=== PATIENT | male | born 1960 | race Caucasian/White ===

== ENCOUNTER → 2016-07-24 | Outpatient (CLI) | payer OTHER ==
[~2016-07-24] MED LIST: ACET50TAOT PO; ALBU17IN INH; ASPI81TA85 PO; ATOR40TA PO; BUPIVACAINE HCL 0.25% 10 ML VIAL As Ordered ONE; BUPIVACAINE HCL 0.25% 30 ML VIAL As Ordered ONE; CLOP75TA2 PO; EFFI10TA4 PO; GABA300C3 PO; IBUP800T23 PO; ISOS30TAB PO; ISOS40TASA PO; LIDO1OIN2 TOP; LISI-542 PO; LISI10TA4 PO; LORA10TA2 PO; NAPR500T PO; NITR0.4D6 SL; NITR4PA TD; OMEP20CA3 PO; RANE1000 PO; RANO5TAB PO; SYMB16INH INH; TOPA50TA7 PO; TOPR25TA PO; TRAM50TA2 PO; TRIAMCINOLONE ACETONIDE SUSP 40 MG/ML VIAL (J3301) As Ordered ONE; [UNRECOGNIZED DRUG - CODE] PO
--- NOTE | 2016-07-30 00:34 | ECWPNPC ---
PATIENT NAME: ROME DODSON : 1960 GENDER: MALE VISIT DATE: 07/24/2016 DISCHARGE DATE: 07/24/16 1436 VISIT LOCKED DATE TIME: PHYSICIAN: ROBERT QUILES RESOURCE: ROBERT QUILES REASON FOR APPOINTMENT 1. TRIGGER POINT INJECTION HISTORY OF PRESENT ILLNESS HISTORY OF PRESENT ILLNESS: PAIN THE PATIENT DESCRIBES THE PAIN... FALL RISK SCREENING: SCREENING :NO FALLS IN THE PAST YEAR CURRENT MEDICATIONS TAKING ASPIRIN ADULT LOW STRENGTH 81 MG TABLETS 1 TABLET ORALLY ONCE A DAY, NOTES: 07/24/16 1000 TAKING ATORVASTATIN CALCIUM 40 MG TABLET 1 TABLET ORALLY QHS, NOTES: 07.24.16 1000 TAKING SYMBICORT 160-4.5 MCG/ACT AEROSOL 2 PUFFS INHALATION TWICE A DAY, NOTES: 07/24/16 1000 TAKING GABAPENTIN 800 MG TABLET 1 TABLET ORALLY TID, NOTES: 07/24/16 1000 TAKING ISOSORBIDE DINITRATE 60 MG TABLET 1 TABLET ORALLY DAILY, NOTES: 07/24/16 1000 TAKING LISINOPRIL 10 MG TABLET 1 TABLET ORALLY ONCE A DAY, NOTES: 07/24/16 1000 TAKING LORATADINE 10 MG TABLET 1 TABLET ORALLY ONCE A DAY, NOTES: 07/24/16 1000 TAKING METOPROLOL SUCCINATE ER 25 MG TABLET EXTENDED RELEASE 24 HOUR 1 TABLET ORALLY ONCE A DAY, NOTES: 07/24/16 1000 TAKING NITROGLYCERIN 0.4 MG PATCH 24 HOUR 1 PATCH TO SKIN REMOVE AFTER 12 HOURS DAILY, NOTES: 07/24/16 1000 TAKING EFFIENT 10 MG TABLET ORALLY DAILY, NOTES: 07/24/16 1000 TAKING RANEXA 1000 MG TABLET EXTENDED RELEASE 12 HOUR 1 TABLET ORALLY TWICE A DAY, NOTES: 07/24/16 1000 TAKING OMEPRAZOLE 20 MG CAPSULE DELAYED RELEASE 1 CAPSULE ORALLY QD, NOTES: 07/24/16 1000 TAKING TOPIRAMATE 50 MG TABLET 1 TABLET ORALLY TWICE A DAY, NOTES: 07/24/16 1000 TAKING VENTOLIN HFA 200 MG AEROSOL SOLUTION 2 PUFFS NEEDED INHALATION EVERY 4 HRS, NOTES: 07/24/16 1000 TAKING METHOCARBAMOL 750 MG TABLET 1 TABLET ORALLY BID, NOTES: 07/24/16 1000 TAKING NORCO 5-325 MG TABLET 1 TABLET ORALLY 8- 12 HRS PRN PAIN MDD=3, NOTES: 07/24/16 1000 MEDICATION LIST REVIEWED AND RECONCILED WITH THE PATIENT PAST MEDICAL HISTORY HYPERTENSION CARDIOVASCULAR DISEASE HI X2 ALLERGIES IV DYE: ITCHING AND SWEATING: ALLERGY SOCIAL HISTORY GENERAL: TOBACCO USE ARE YOU A:NONSMOKER 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 NEW PATIENT PAIN DIARY TODAY'S VISITNOTES FROM 0-10, WHAT LEVEL IS YOUR PAIN TODAY?0 PAIN CLINIC PFS, CLERGY, PUBLIC HEALTH REFERRALS PFS REFERRAL NEEDED?NO CLERGY REFERRAL NEEDED?NO PUBLIC HEALTH REFERRAL NEEDED?NO WAS THE PROVIDER NOTIFIED OF ANY PERTINENT INFO?NO PFS REFERRAL NEEDED?NO CLERGY REFERRAL NEEDED?NO PUBLIC HEALTH REFERRAL NEEDED?NO WAS THE PROVIDER NOTIFIED OF ANY PERTINENT INFO?NO REVIEW OF SYSTEMS CONSTITUTIONAL: ANY CHANGE IN YOUR MEDICAL CONDITION? NO . CHILLS NO . FEVER NO . INFECTION: DO YOU HAVE NEW INFECTIONS? NO . DO YOU HAVE HISTORY OF MRSA? NO . MUSCULOSKELETAL: ANY NEW PATTERNS OF PAIN OR NUMBNESS? NO . GASTROENTEROLOGY: ANY NEW CHANGE IN BOWEL CONTROL? NO . GENITOURINARY: ANY NEW CHANGE IN BLADDER CONTROL? NO . IS THERE A CHANCE YOU COULD BE ? NO . HEMATOLOGY/LYMPH: DO YOU TAKE ANY BLOOD THINNERS? (FOR EXAMPLE- COUMADIN, PLAVIX, AGGRENOX, PLATEL, PRADAXA, OR XARELTO) YES EFFIENT . WHEN WAS YOUR LAST DOSE? DATE: TIME: . NEUROLOGY: HAVE YOU FALLEN IN THE PAST 6 MONTHS? YES SLIPPED AND FELL ON ICE TEN DAYS AGO, PT DENIES INJURIES, ALTHOUGH HE STATES HE STRUCK HIS HEAD AND &QUOT;WENT BLACK&QUOT; FOR A COUPLE OF SECONDS. WENT TO ED AND STATES NOTHING BROKEN . ANY NEW EXTREMITY NUMBNESS OR WEAKNESS? NO . CARDIOLOGY: DO YOU HAVE A PACEMAKER OR DEFIBRILLATOR? YES PACEMAKER/DEFIBRILLATOR . RESPIRATORY: HAVE YOU BEEN SICK IN THE PAST WEEK? NO . FEVER NO . FLU LIKE SYMPTOMS? NO . COUGH NO . INTEGUMENTARY: DO YOU HAVE ANY RASHES OR OPEN SORES? NO . ALLERGIC/IMMUNO: ARE YOU ALLERGIC TO SHELLFISH OR IV DYE? YES . ANY NEW ALLERGIES? NO . PSYCHIATRIC: DO YOU HAVE THOUGHTS OF HURTING YOURSELF OR SOMEONE ELSE? NO . ARE YOU ABUSED, NEGLECTED, OR IN AN UNSAFE ENVIRONMENT? NO . ENDOCRINOLOGY: ARE YOU DIABETIC? NO . OTHER: DO YOU NEED ANY PRESCRIPTIONS? YES NORCO . IF YES, PLEASE LIST: ____ . ANY NEW PROBLEMS WITH YOUR MEDICATIONS? NO . WHEN DID YOU LAST EAT? ____07/23/16 2400 . WHEN DID YOU LAST DRINK? ____07/24/16 0800 . WHAT DID YOU LAST DRINK? ____BLACK COFFEE . NAME OF PERSON DRIVING YOU HOME? ____MR NAIL[employer], VOLUNTEER [employer]ACING [employer]ITTER . DO YOU HAVE ANY OTHER QUESTIONS OR CONCERNS NO . REVIEWED BY: PROVIDER: . VITAL SIGNS WT 180 LBS, HT 72 IN, BMI 24.41 INDEX, BP 145/96 MM HG, HR 87 /MIN, RR 16 /MIN, TEMP 96.0 F, OXYGEN SAT % 96, NA INITIALS TL 1306ELEVATED BP, PT STATES HE IS IN A LOT OF PAIN- TL. ASSESSMENTS MYALGIA - M79.1 (PRIMARY) PROCEDURES PN TRIGGER POINT INJECTION WITH STEROIDS PRE PROCEDURE DIAGNOSIS 1. MYALGIA 2. PAIN AT BILATERAL LOW BACK AREA POST PROCEDURE DIAGNOSIS 1. MYALGIA 2. PAIN AT BILATERAL LOW BACK AREA PROCEDURE TRIGGER POINT INJECTION AT BILATERAL LOW BACK AREA SURGEON DR. ROBERT QUILES SALES MANAGEMENT INTERN NONE ANESTHESIA LOCAL PRE PROCEDURE NOTE THE PATIENT HAS A HISTORY OF CHRONIC PAIN AT THE RIGHT AND LEFT LOW BACK AREA. I EVALUATE THE PATIENT AND REVIEWED THE CHART. THERE IS EVIDENCE OF BANDS OF TISSUE WITH RESTRICTION OF MOVEMENT AND PRESENCE OF TRIGGER POINT AT THE AFFECTED AREA. I WENT OVER THE RISKS, ALTERNATIVES, AND BENEFITS ASSOCIATED WITH THIS PROCEDURE. THE PATIENT WOULD LIKE TO PROCEED AND GIVE CONSENT TO PERFORMED THE PROCEDURE. THE PATIENT DENIES UNEXPLAINABLE WEIGHT LOSS, FEVER, CHILLS, OR NEW CHANGES IN URINARY OR BOWEL CONTROL DESCRIPTION OF PROCEDURE THE PATIENT WAS BROUGHT TO THE PROCEDURE ROOM AND PLACED IN THE SITTING POSITION. THE AREA WAS CLEANED WITH ALCOHOL. THE PROCEDURE WAS DONE USING ASEPTIC STERILE TECHNIQUE. I CHECKED LATERALITY AND THE LEVEL WHERE THE PROCEDURE WAS GOING TO BE PERFORMED WITH THE PATIENT AND THE SUPPORTING STAFF AT THE MOMENT OF THE TIME OUT IN THE PROCEDURE ROOM. USING A 25-GAUGE NEEDLE, TRIGGER POINTS WERE INJECTED AT THE RIGHT AND LEFT LOW BACK AREA WITH A TOTAL OF 40 ML OF BUPIVACAINE 0.25% AND KENALOG 40 MG. THERE WAS NO EVIDENCE OF BLOOD, PARESTHESIA OR CEREBROSPINAL FLUID DURING THE PROCEDURE. THE PATIENT WAS SENT TO THE RECOVERY ROOM. THE PATIENT WAS MOVING THE EXTREMITIES AND DOING WELL. THERE WAS NO COMPLICATION DURING THE PROCEDURE POST PROCEDURE NOTE THE PATIENT WILL BE SEEN IN A FOLLOW UP IN THE NEXT FEW WEEKS. INSTRUCTIONS WERE GIVEN, QUESTIONS WERE ANSWERED, AND THE PATIENT EXPRESSED UNDERSTANDING AND AGREES WITH THE PLAN. INSTRUCTIONS WERE GIVEN, QUESTIONS WERE ANSWERED, PATIENT REPORTS UNDERSTANDING AND AGREES WITH THE PLAN. I, JASMINE HAM, DOCUMENTED THE ABOVE INFORMATION ACTING A SCRIBE FOR DR. QUILES. I HAVE REVIEWED THE ABOVE DOCUMENT, WRITTEN BY JASMINE HAM SCRIBE AND I VERIFY THAT IT IS ACCURATE. PROCEDURE CODES 92695 INJ TRIGGER POINT / MUSCL FOLLOW UP 3 WEEKS ELECTRONICALLY SIGNED BY ROBERT QUILES MD ON 07/29/2016 AT 08:21 PM EST DISCLAIMER : THIS IS A VISIT SUMMARY EXTRACTED FROM THE [employer] CHART. IT IS NOT A COPY OF THE [employer] PROGRESS NOTE. LARON
== END ==
LOC: M PAIN 13:00
PROVIDERS: ATTEND Anesthesiology
DX: G89.29 Other chronic pain (principal); M79.1 Myalgia; M54.5 Low back pain; I10 Essential (primary) hypertension; I51.9 Heart disease, unspecified; I25.2 Old myocardial infarction; Z79.01 Long term (current) use of anticoagulants; Z79.82 Long term (current) use of aspirin; Z79.891 Long term (current) use of opiate analgesic; Z79.899 Other long term (current) drug therapy
CPT/HCPCS: 20552; J3301

== ENCOUNTER → 2016-09-14 | Outpatient (CLI) | payer OTHER ==
[~2016-09-14] MED LIST changes: -BUPIVACAINE HCL 0.25% 10 ML VIAL As Ordered ONE; -BUPIVACAINE HCL 0.25% 30 ML VIAL As Ordered ONE; -TRIAMCINOLONE ACETONIDE SUSP 40 MG/ML VIAL (J3301) As Ordered ONE
--- NOTE | 2016-09-14 23:59 | ECWPNPC ---
PATIENT NAME: ROME DODSON : 1960 GENDER: MALE VISIT DATE: 09/14/2016 DISCHARGE DATE: 09/14/16 1503 VISIT LOCKED DATE TIME: PHYSICIAN: MANISHA BRENNER RESOURCE: MANISHA BRENNER REASON FOR APPOINTMENT 1. BACK HISTORY OF PRESENT ILLNESS HISTORY OF PRESENT ILLNESS: PAIN THE PATIENT DESCRIBES THE PAIN... FALL RISK SCREENING: SCREENING :NO FALLS IN THE PAST YEAR TODAY'S VISIT: NOTES: IS S/P TRIGGER POINTS TO LOW BACK ON 07/24/16 WITH GOOD DECREASE OF PAIN TO THE AREA FOR ABOUT 1 MONTH. PAIN HAS NOW RETURNEDNO PAIN RADIATING TO LEGS. STATES HAS BEEN HAVING DIZZY SPELLS WITH VISUAL CHANGES. AND HAS BEEN TO THE ER WITH NO CHANGES.. CURRENT MEDICATIONS TAKING ASPIRIN ADULT LOW STRENGTH 81 MG TABLETS 1 TABLET ORALLY ONCE A DAY, NOTES: 07/24/16 1000 TAKING ATORVASTATIN CALCIUM 40 MG TABLET 1 TABLET ORALLY QHS, NOTES: 07.24.16 1000 TAKING SYMBICORT 160-4.5 MCG/ACT AEROSOL 2 PUFFS INHALATION TWICE A DAY, NOTES: 07/24/16 1000 TAKING GABAPENTIN 800 MG TABLET 1 TABLET ORALLY TID, NOTES: 07/24/16 1000 TAKING ISOSORBIDE DINITRATE 60 MG TABLET 1 TABLET ORALLY DAILY, NOTES: 07/24/16 1000 TAKING LISINOPRIL 10 MG TABLET 1 TABLET ORALLY ONCE A DAY, NOTES: 07/24/16 1000 TAKING LORATADINE 10 MG TABLET 1 TABLET ORALLY ONCE A DAY, NOTES: 07/24/16 1000 TAKING METOPROLOL SUCCINATE ER 25 MG TABLET EXTENDED RELEASE 24 HOUR 1 TABLET ORALLY ONCE A DAY, NOTES: 07/24/16 1000 TAKING NITROGLYCERIN 0.4 MG PATCH 24 HOUR 1 PATCH TO SKIN REMOVE AFTER 12 HOURS DAILY, NOTES: 07/24/16 1000 TAKING EFFIENT 10 MG TABLET ORALLY DAILY, NOTES: 07/24/16 1000 TAKING RANEXA 1000 MG TABLET EXTENDED RELEASE 12 HOUR 1 TABLET ORALLY TWICE A DAY, NOTES: 07/24/16 1000 TAKING OMEPRAZOLE 20 MG CAPSULE DELAYED RELEASE 1 CAPSULE ORALLY QD, NOTES: 07/24/16 1000 TAKING TOPIRAMATE 50 MG TABLET 1 TABLET ORALLY TWICE A DAY, NOTES: 07/24/16 1000 TAKING VENTOLIN HFA 200 MG AEROSOL SOLUTION 2 PUFFS NEEDED INHALATION EVERY 4 HRS, NOTES: 07/24/16 1000 TAKING METHOCARBAMOL 750 MG TABLET 1 TABLET ORALLY BID, NOTES: 07/24/16 1000 TAKING NORCO 5-325 MG TABLET 1 TABLET ORALLY 8- 12 HRS PRN PAIN MDD=3 TAKING IBUPROFEN 600 MG TABLET 1 TABLET ORALLY BID PRN PAIN. TAKE WITH FOOD TAKING PREDNISONE 10 MG (21) TABLET THERAPY PACK ORALLY TAKING TESSALON PERLES 100 MG CAPSULE 1 CAPSULE NEEDED ORALLY THREE TIMES A DAY MEDICATION LIST REVIEWED AND RECONCILED WITH THE PATIENT PAST MEDICAL HISTORY HYPERTENSION CARDIOVASCULAR DISEASE MD X2 ALLERGIES IV DYE: ITCHING AND SWEATING: ALLERGY SOCIAL HISTORY GENERAL: TOBACCO USE ARE YOU A:NONSMOKER 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 NEW PATIENT PAIN DIARY TODAY'S VISITNOTES FROM 0-10, WHAT LEVEL IS YOUR PAIN TODAY?0 PAIN CLINIC PFS, CLERGY, PUBLIC HEALTH REFERRALS PFS REFERRAL NEEDED?NO CLERGY REFERRAL NEEDED?NO PUBLIC HEALTH REFERRAL NEEDED?NO WAS THE PROVIDER NOTIFIED OF ANY PERTINENT INFO?NO PFS REFERRAL NEEDED?NO CLERGY REFERRAL NEEDED?NO PUBLIC HEALTH REFERRAL NEEDED?NO WAS THE PROVIDER NOTIFIED OF ANY PERTINENT INFO?NO REVIEW OF SYSTEMS CONSTITUTIONAL: ANY CHANGE IN YOUR MEDICAL CONDITION? YES PT REPORTS ED VISIT 09/11/16 AT FOR DIZZINESS, TIGHTNESS IN HIS CHEST AND FAINTING. DISCHARGED ON PREDNISONE TAPER AND TESSALON PERLES. . CHILLS DENIES . FEVER DENIES . INFECTION: DO YOU HAVE NEW INFECTIONS? NO . DO YOU HAVE HISTORY OF MRSA? NO . MUSCULOSKELETAL: ANY NEW PATTERNS OF PAIN OR NUMBNESS? YES TPI 07/24/16 PT REPORTS GOOD RESULTS FROM IT LASTING ABOUT A MONTH. NOW PAIN HAS RETURNED TO PRE-PROCEDURE LEVEL . GASTROENTEROLOGY: ANY NEW CHANGE IN BOWEL CONTROL? NO . GENITOURINARY: ANY NEW CHANGE IN BLADDER CONTROL? NO . IS THERE A CHANCE YOU COULD BE ? NO . HEMATOLOGY/LYMPH: DO YOU TAKE ANY BLOOD THINNERS? (FOR EXAMPLE- COUMADIN, PLAVIX, AGGRENOX, PLATEL, PRADAXA, OR XARELTO) YES EFFIENT . WHEN WAS YOUR LAST DOSE? DATE: TIME: . NEUROLOGY: HAVE YOU FALLEN IN THE PAST 6 MONTHS? NO . ANY NEW EXTREMITY NUMBNESS OR WEAKNESS? NO . CARDIOLOGY: DO YOU HAVE A PACEMAKER OR DEFIBRILLATOR? YES . RESPIRATORY: HAVE YOU BEEN SICK IN THE PAST WEEK? YES HAD A DIZZY SPELL WHILE VISITING HIS MOM, AND WENT TO THE ED AND WAS TREATED WITH PREDNISONE TAPER AND TESSALON PERLES. . FEVER NO . FLU LIKE SYMPTOMS? NO . COUGH NO . INTEGUMENTARY: DO YOU HAVE ANY RASHES OR OPEN SORES? NO . ALLERGIC/IMMUNO: ARE YOU ALLERGIC TO SHELLFISH OR IV DYE? NO . ANY NEW ALLERGIES? NO . PSYCHIATRIC: DO YOU HAVE THOUGHTS OF HURTING YOURSELF OR SOMEONE ELSE? NO . ARE YOU ABUSED, NEGLECTED, OR IN AN UNSAFE ENVIRONMENT? NO . ENDOCRINOLOGY: ARE YOU DIABETIC? NO . OTHER: DO YOU NEED ANY PRESCRIPTIONS? YES NORCO . IF YES, PLEASE LIST: ____ . ANY NEW PROBLEMS WITH YOUR MEDICATIONS? NO . WHEN DID YOU LAST EAT? ____ . WHEN DID YOU LAST DRINK? ____ . WHAT DID YOU LAST DRINK? ____ . NAME OF PERSON DRIVING YOU HOME? ____ . DO YOU HAVE ANY OTHER QUESTIONS OR CONCERNS NO . REVIEWED BY: PROVIDER: MANISHA BROWN . VITAL SIGNS WT 180.4 LBS, HT 72 IN, BMI 24.46 INDEX, BP 140/93 MM HG, HR 102 /MIN, RR 18 /MIN, TEMP 96.3 F, OXYGEN SAT % 98, SAFE IN ENV? (Y/N) YES, NA INITIALS TL 1410, REVIEWED BY: RACIEL. EXAMINATION GENERAL EXAMINATION: GENERAL APPEARANCE:SKIN WARM, DRY, COLOR PINK. PSYCHALERT , ORIENTED X 3 , APPROPRIATE MOOD AND AFFECT . LUNGS:CLEAR TO AUSCULTATION BILATERALLY. HEART:HEART RATE REGULAR. MUSCULOSKELETAL:TRIGGER POINTS:, ELICITED WITH PALPATION OVER LUMBAR PARAVERTEBRAL MUSCLES AND INTO THE SACRUM. RESTRICTION OF ROM IN THIS AREA. POSTURE STOOPED. SLOW TO RISE TO STANDING POSITION.. GAIT NONANTALGIC. NO ECCYMOTIC AREAS ACROSS SACRUM. ASSESSMENTS MYALGIA - M79.1 (PRIMARY) CHRONIC PRESCRIPTION OPIATE USE - Z79.891 TREATMENT MYALGIA REFILL NORCO TABLET, 5-325 MG, 1 TABLET, ORALLY, 8- 12 HRS PRN PAIN MDD=3, 30 DAY(S), 90, REFILLS 0 TRIGGER POINT 3 + MANISHA NORRIS 09/14/2016 2:38:06 PM > LOW BACK NOTES: UTOX TODAY,TRIGGER POINT INJECTION MATERIAL WAS PRINTED,TRIGGER POINT INJECTION: YOUR EXPERIENCE MATERIAL WAS PRINTED. CLINICAL NOTES: ISTOP REGISTRY REVIEWED AND DEMNOSTRATES COMPLLIANCE. BRINGS IN MEDICATIONS WHICH IS APPROPRIATE FOR WHAT WAS DISPENSED. RECENT URINE TOXICOLOGY REVIEWED. NO UNAUTHORIZED MEDICATIONS. NO ILLICIT SUBSTANCES AND PRESCRIBED MEDICATIONS WERE PRESENT. WHEN PT WAS TLD THAT WE WOULD BE REQUIRING A UTOX TODAY HE SATED THAT HE HAD TO GO AND WOULD NOT BE ABLE TO DO IT. I DID TELL HIM THT WITHOUT IT I WOULD NOT BE ABLE TO PRESCRIBE HIS NORCO - HE DID THEN COMPLETE THE URINE TOXICOLOGY. PROCEDURE CODES FA211 ESTABILISHED PATIENT [facility] CHARGE DISPOSITION & COMMUNICATION FOLLOW UP AFTER INJECTION (REASON: CHECK AUTH FOR TPI) ELECTRONICALLY SIGNED BY JUAN MIGUEL CLEMENT ON 09/14/2016 AT 06:54 PM EST DISCLAIMER : THIS IS A VISIT SUMMARY EXTRACTED FROM THE [employer] CHART. IT IS NOT A COPY OF THE [employer] PROGRESS NOTE. MTDD
== END ==
LOC: M PAIN 14:00
PROVIDERS: ATTEND Nurse Practitioner Family
DX: Z09 Encounter for follow-up examination after completed treatment for conditions other than malignant neoplasm (principal); G89.29 Other chronic pain; M79.1 Myalgia; I10 Essential (primary) hypertension; I51.9 Heart disease, unspecified; I25.2 Old myocardial infarction; Z91.041 Radiographic dye allergy status; Z79.01 Long term (current) use of anticoagulants; Z79.1 Long term (current) use of non-steroidal anti-inflammatories (NSAID); Z79.82 Long term (current) use of aspirin; Z79.891 Long term (current) use of opiate analgesic; Z79.899 Other long term (current) drug therapy

== ENCOUNTER 2016-09-24 14:58 | Inpatient (IN) | payer OTHER ==
[~2016-09-24] VITALS: Ht 185.4 cm; Wt 78.8 kg
--- NOTE | 2016-09-24 16:02 | REP ---
CT BRAIN WITHOUT CONTRAST: 09/24/2016: Clinical history: Dizziness, weakness. Evaluate for CVA. Comparison: 03/13/2016. Findings: Soft-tissue and bone windows for each slice level are reviewed. Ventricles are midline, symmetric and without dilatation or displacement. Third and fourth ventricles also unremarkable. Basal ganglia intact amaro-white junction differentiation was well maintained. The white matter tracks show preservation of the amaro-white junction differentiation. There is no intracranial hemorrhage, acute infarct, mass or mass effect. No significant atrophy. Brainstem is unremarkable. Cerebellum intact without acute finding. No bleed or mass. Basal cisterns are intact. Visualized mastoids and sinuses are clear. The skull base and calvarium show no fracture or focal lesion. Impression: 1. No intracranial hemorrhage, acute infarct, mass, edema or mass effect. 2. White matter tracts preserved with amaro-white junction intact and no extra-axial fluid collections. 3. Skull base, calvarium, mastoids and visualized sinuses were clear. Nothing acute by CT. Signed by Jian Mcdermott MD 09/24/2016 04:22 P
--- NOTE | 2016-09-24 16:06 | REP ---
Chest x-ray: Two views. History: Chest pain. Comparison study: September 09, 2016. Findings: There is a unipolar pacemaker in the right heart via the left side. The heart is not felt to be enlarged. Pulmonary vasculature is not increased. There are multiple old right-sided rib fractures. There is diffuse osteoporosis. On lateral radiograph, there is a almost completely collapsed upper thoracic vertebrae, which is unchanged from the prior study of September 09, 2016. This is new, however, from comparison radiograph January 23, 2016. It is visible on September 04 2016 radiograph. There is no evidence of pneumothorax or hydrothorax. Mediastinum is not widened. No infiltrate is seen. Impression: 1. No active cardiopulmonary disease. Pacemaker in place. 2. Right-sided rib fractures and diffuse osteoporosis. 3. Nearly complete collapse in one of the upper thoracic vertebral bodies at approximately T4. This is unchanged from most recent prior chest x-ray. Signed by Rahat Pruitt MD 09/24/2016 05:39 P
[2016-09-24 16:22] LABS: BASO % 0.4 % (0.0-1.0); EOS # 0.1 K/mm3 (0.0-0.50); EOS % 1.3 % (0.0-3.0); LARGE UNSTAINED CELL # 0.2 K/mm3 (0.0-0.4); LARGE UNSTAINED CELL % 2.6 % (0.0-4.0); LYMPH # 2.1 K/mm3 (1.5-4.5); LYMPH % 28.8 % (24.0-44.0); MEAN CORPUSCULAR HEMOGLOBIN 31.1 pg (27.0-33.0); MEAN CORPUSCULAR VOLUME 97.2 fl (80.0-96.0); MONO # 0.4 K/mm3 (0.0-0.8); MONO % 6.3 % (0.0-5.0); NEUTROPHILS # 4.1 K/mm3 (1.8-7.7); NEUTROPHILS % 60.7 % (36.0-66.0); PLATELET COUNT, AUTOMATED 247 k/mm3 (150-450); RED CELL DISTRIBUTION WIDTH 14.7 % (11.5-14.5); WHITE BLOOD COUNT 6.8 K/mm3 (4.0-10.0)
[2016-09-24 16:43] LABS: ANION GAP 8 MEQ/L (8-16); BLOOD UREA NITROGEN 14 MG/DL (7-18); CARBON DIOXIDE LEVEL 23 MEQ/L (21-32); CHLORIDE LEVEL 110 MEQ/L (98-107); CREATININE FOR GFR 1.12 MG/DL (0.70-1.30); GLOMERULAR FILTRATION RATE > 60.0 (>56); GLUCOSE, FASTING 87 MG/DL (70-105); POTASSIUM SERUM 4.2 MEQ/L (3.5-5.1); SODIUM LEVEL 141 MEQ/L (136-145)
[2016-09-24] MEDS ORDERED: MONT10TA2 PO (18:42)
[2016-09-24] MEDS ORDERED: GABA800T PO (18:42)
[2016-09-24] MEDS ORDERED: ISOS60TA2 PO (18:42)
[2016-09-24] MEDS ORDERED: MELO7.5T6 PO (18:42)
[2016-09-24] MEDS ORDERED: HYDR-3713 PO (18:42)
[2016-09-24] MEDS ORDERED: ONDANSETRON 4MG/2ML VIAL (J2405) IV PRN (19:00)
[2016-09-24] MEDS ORDERED: ACETAMINOPHEN TAB 650MG DOSE (2X325MG) PO PRN (19:00)
[2016-09-24] MEDS ORDERED: CLOPIDOGREL 75 MG TAB PO ONE (19:15)
--- NOTE | 2016-09-24 20:18 | HPE ---
DATE OF ADMISSION: 09/24/2016 Time patient was seen was at 1830 hours. PRIMARY CARE PROVIDER: Gopal Blanchard MD PARADICHLOROBENZENE MACHINE OPERATOR: Rubio Bhatti MD CHIEF COMPLAINT: Cannot walk, dizziness, lightheadedness, and fall. HISTORY OF PRESENT ILLNESS: 56-year-old male with multiple comorbidities, most significantly coronary artery disease status post myocardial infarction (MO) and stent, also sinus arrhythmia, follows with Dr. Bhatti, as well as chronic obstructive pulmonary disease (COPD), chronic back pain, receives injections at pain clinic, hypertension, gastroesophageal reflux disease (GERD), migraine headache, chronic angina, presented with dizziness, fall, and lightheadedness as soon as he tried to stand up. Per patient, this has been going on for roughly a month, happened after he hit his head on the ground when he slipped and fell on 07/26/2016, and, per patient, about six times a month it would become really bad and he would fall and felt like he almost blacked out. Otherwise, patient denies any fever or chills, any changes with vision, smell, hearing, or taste, any weakness on any side of his body. However, he admits to trouble walking and feeling unstable when he walks and he would fall. He also denied any ringing in his ears. He also admits to chronic chest tightness that he takes medication for and he stated his symptoms improve with lying down. Otherwise, denies any trouble breathing, denies any abdominal pain, nausea, vomiting, any constipation. Patient, however, does have diarrhea about 4-5 times a month. Patient does admit to shortness of breath which is intermittent that does not seem to get better or worse with anything. Recently, about a few weeks ago, he was admitted in [facility] for COPD exacerbation and was sent home on steroids. ALLERGIES: Patient is allergic to IV DYE and also CONTRAST DYE which gives him hives and makes him sweaty. HOME MEDICATIONS: Including: - hydrocodone/acetaminophen 5/325 mg one tablet by mouth every 6 hours as needed - Ventolin two puff inhalation four times a day as needed - aspirin 81 mg by mouth daily - atorvastatin 40 mg one tablet by mouth nightly - Symbicort 160/4.5 mcg two puff inhalation twice a day - gabapentin 800 mg one tablet by mouth three times a day - isosorbide mononitrate 60 mg one tablet by mouth daily - loratadine 2 mg one tablet by mouth daily - meloxicam 7.5 mg one tablet by mouth twice a day - Toprol 25 mg one tablet by mouth daily - montelukast 10 mg one tablet by mouth nightly - omeprazole 20 mg one tablet by mouth daily - Effient 10 mg one tablet by mouth daily - Ranexa 1000 mg one tablet by mouth twice a day - Topamax 50 mg one tablet by mouth twice a day PAST MEDICAL HISTORY: Includin. Coronary artery disease status post MO and stent. 2. Cardiomyopathy status post pacemaker defibrillator. 3. Angina. 4. Hypertension. 5. Abnormal EKG with sinus arrhythmia. 6. COPD. 7. GERD. 8. Chronic headache. 9. Chronic back pain, receives injections. PAST SURGICAL HISTORY: Includin. Pacemaker defibrillator placement in 2012 at [facility] [place]. 2. Cardiac stent times one. 3. Collarbone repair on the right side. 4. Right ankle repair due to fracture. SOCIAL HISTORY: Patient admits to smoking from a pipe every day for the past 25 years and he used to smoke cigarettes. Admits to occasional drinking. Denies any recreational drug use. FAMILY HISTORY: Mother had diabetes and heart disease. REVIEW OF SYSTEMS: 12-point systems reviewed, negative, except as stated in history of present illness (HPI) including no fever/chill, no weight loss, admits to frequent falls , dizziness, lightheadedness, cough. Denies any fever or chills. Admits to intermittent trouble breathing. Admits to sinus arrhythmia and pacemaker defibrillator. Denies any lung problems, however patient does have COPD. Admits to diarrhea. Denies any abdominal pain. Denies any problem with urination. Admits to wobbly gait. Denies any change in sensation anywhere. Denies any diabetes, any heat or cold intolerance. Denies any bleeding anywhere. PHYSICAL EXAMINATION: VITAL SIGNS: Temperature 99.7, pulse 92, respirations 18, blood pressure 127/78 , with oxygen saturating at 99% on room air. GENERAL: Patient is a well-developed, well-nourished male who was alert, awake, oriented times three. Does not appear to be in distress. Resting comfortably in bed with head elevated at 45 degree angle. HEENT: Normocephalic, atraumatic. Extraocular motors intact. Mucous moist. Neck supple, no neck lymphadenopathy. CARDIOVASCULAR: Irregular heart rate with ectopic beats. Otherwise, patient also has normal S1, S2 with at least 2/6 systolic heart murmur. LUNGS: Reduced respiratory effort, otherwise clear to auscultation. ABDOMEN: Positive bowel sounds. Soft, nontender, nondistended. No peritoneal signs. No ecchymosis. EXTREMITIES: No edema, clubbing, or cyanosis. SKIN: Warm and dry. NEUROLOGIC: Patient's [id number] test was somewhat sluggish, otherwise patient's muscle strength was 5/5 in bilateral upper and lower extremities. Deep tendon reflexes were 2/4. [id number] was appropriate bilaterally. LABORATORY DATA: WBC 6.8, hemoglobin 13.4, hematocrit 41.7 with platelet count 247, MCV 97.2. Sodium 141, potassium 4.2, chloride 110, bicarbonate 32, anion gap 8, BUN 14, creatinine 1.12, GFR greater than 60, fasting glucose 87, calcium 9, total CK 87 , CK-MB 1.8, troponin less than 0.02. Patient had a CT head in the emergency room without contrast, shows no intracranial changes. White matter tracts preserved with amaro-white junction intact, no extra-axial fluid collections. Skull base, calvarium, mastoids and visualized sinuses are clear. Nothing acute by CT. Patient also had a chest xray posteroanterior (PA) and lateral, shows no acute cardiopulmonary disease. Pacemaker in place. Right-sided rib fracture and diffuse osteoporosis. Nearly complete collapse in one of the upper thoracic vertebral bodies at approximately T4. ASSESSMENT AND PLAN: 56-year-old male with past medical history most significant for coronary artery disease status post myocardial infarction (MO) and stent, cardiomyopathy status post pacemaker defibrillator, abnormal EKG with sinus arrhythmia, hypertension, chronic obstructive pulmonary disease (COPD), chronic pain, migraine headache, presented with: 1. Near syncope and gait instability. Will rule out cardiac versus neurological causes. Dr. Goyal from cardiology has been consulted and we have also consulted neurology Dr. Bustamante. At this point will order echocardiogram, cardiac markers. Will rule out acute coronary syndrome (ACS) due to patient does have chest pain. Patient couldn't have MRI due to pacemaker. Questionable stroke, also patient was unable to have MRI after his previous fall in July, which he hit his head. Will repeat CT head tomorrow per neurology recommendation. Will place patient on neurologic checks and also daily orthostatic vital signs and continue to monitor patient. 2. Chest tightness. Will rule out acute coronary syndrome (ACS) with serial cardiac markers and continue to monitor. 3. Cardiomyopathy with pacemaker defibrillator. Dr. Goyal has been consulted. Will follow his recommendation and will followup with echocardiogram. Patient possibly may need interrogation of the pacemaker. Will continue to follow. 4. Coronary artery disease status post myocardial infarction (MO) and stent. Will continue home medications with aspirin, atorvastatin, metoprolol 25 mg by mouth daily, and continue to monitor patient. 5. Chronic obstructive pulmonary disease (COPD). Continue patient on home inhaler as well as DuoNebs and continue to monitor. 6. History of hypertension. Will continue blood pressure medication, isosorbide mononitrate, metoprolol, and continue to monitor patient. 7. History of gastroesophageal reflux disease (GERD). Continue home proton pump inhibitor (PPI). 8. Migraine headache. Continue Topamax. 9. Angina. Continue Ranexa. 10. Deep venous thrombosis (DVT) prophylaxis with Lovenox. DISPOSITION: Patient does have near syncope and also gait instability. Will consult cardiology, Dr. Goyal. We are consulting Neurology, Dr. Bustamante. Will followup with echocardiogram and place patient on cardiac telemetry. Continue orthostatic vital signs daily and will investigate etiology of patient's gait instability. Patient will be assigned to Dr. Nahid Weir for tomorrow. Patient has been discussed with attending doctor, Dr. Cary Blevins. My preceptor for this patient encounter was Dr. Cary Blevins. The preceptor was physically present in the building during the encounter and was fully available. As needed, all aspects of the patient interview, examination, medical decision making process, and medical care plan development were reviewed and approved by the preceptor. The preceptor is aware and concurs with the plan as stated in the body of this note and will attest to such by his cosignature. I have both independently examined this patient as well as reviewed the H&P. I have discussed in detail with the resident the findings and plan of treatment as documented in the residents note. I will continue to follow the patient and offer further guidance to the patients care as necessary during this hospital stay. Cary LARRY
[2016-09-24 20:50] VITALS: BP 130/83
[2016-09-24] MEDS: SYMBICORT 160/4.5MCG INHALER 6GM INH SCH (21:00)
[2016-09-24] MEDS ORDERED: GABAPENTIN 400 MG CAP PO SCH (21:00)
[2016-09-24] MEDS: SENOKOT S TAB PO SCH (21:00)
[2016-09-24] MEDS: GABAPENTIN 300 MG CAP PO SCH (21:59)
[2016-09-24] MEDS: ATORVASTATIN 20 MG TAB PO SCH (21:59)
[2016-09-24] MEDS: TOPIRAMATE (TopAMAX) 25 MG TAB PO SCH (21:59)
[2016-09-24] MEDS: MELOXICAM (MOBIC) 7.5 MG TAB PO SCH (21:59)
[2016-09-24] MEDS: MONTELUKAST 10 MG TAB PO SCH (21:59)
[2016-09-24 23:29] LABS: T UPTAKE 35 % (33-40); THYROXINE (T4) 7.8 UG/DL (4.5-12.0)
[2016-09-25] VITALS: BP 126/69
[2016-09-25 04:00] VITALS: BP_SYST 132; BP_SYST 147; BP_SYST 157; BP_DIAS 83; BP_DIAS 92; BP_DIAS 97
[2016-09-25 05:49] LABS: MEAN CORPUSCULAR HEMOGLOBIN 31.2 pg (27.0-33.0); MEAN CORPUSCULAR HGB CONC 31.9 g/dl (32.0-36.5); MEAN CORPUSCULAR VOLUME 97.8 fl (80.0-96.0); RED CELL DISTRIBUTION WIDTH 14.5 % (11.5-14.5); WHITE BLOOD COUNT 7.5 K/mm3 (4.0-10.0)
[2016-09-25 06:02] LABS: ANION GAP 9 MEQ/L (8-16); BLOOD UREA NITROGEN 18 MG/DL (7-18); CALCIUM LEVEL 8.7 MG/DL (8.5-10.1); CARBON DIOXIDE LEVEL 25 MEQ/L (21-32); CHLORIDE LEVEL 108 MEQ/L (98-107); CHOLESTEROL LEVEL 150 MG/DL (<200); CREATININE FOR GFR 1.13 MG/DL (0.70-1.30); GLOMERULAR FILTRATION RATE > 60.0 (>56); GLUCOSE, FASTING 87 MG/DL (70-105); MAGNESIUM LEVEL 2.1 MG/DL (1.8-2.4); POTASSIUM SERUM 3.9 MEQ/L (3.5-5.1); SODIUM LEVEL 142 MEQ/L (136-145); TRIGLYCERIDES LEVEL 91 MG/DL (<150)
[2016-09-25] MEDS: SYMBICORT 160/4.5MCG INHALER 6GM INH SCH ×2 (07:07→19:54)
[2016-09-25 08:00] VITALS: BP 139/83
--- NOTE | 2016-09-25 08:52 | ECGEPIP ---
Stationary ECG Study [facility] - ED Test Date: 2016-09-24 Pat Name: ROME DODSON Department: Room: - Gender: M Fall Internship: ct : 1960 Requested By: NICANOR Porras Order Number: [id number] Reading MD: Angeles Greenberg Measurements Intervals [place] Rate: 71 P: 38 VA: 116 QRS: 20 QRSD: 105 T: -13 QT: 406 QTc: 443 Interpretive Statements SINUS RHYTHM WITH SHORT VA INTERVAL WITH OCCASIONAL SUPRAVENTRICULAR PREMATURE COMPLEXES IN A BIGEMINAL PATTERN INFERIOR MYOCARDIAL INFARCTION, OF INDETERMINATE AGE NSTTW ABNORMALITY INCREASED RATE 03/13/16 Electronically Signed On 09-25-2016 8:52:35 EDT by Angeles Greenberg
--- NOTE | 2016-09-25 08:53 | ECGEPIP ---
Stationary ECG Study [facility] - ED Test Date: 2016-09-24 Pat Name: ROME DODSON Department: Room: - Gender: M Instructional Design Specialist: JRahul : 1960 Requested By: NICANOR Porras Order Number: [id number] Reading MD: Angeles Greenberg Measurements Intervals [place] Rate: 68 P: 45 ME: 108 QRS: 17 QRSD: 102 T: -15 QT: 411 QTc: 437 Interpretive Statements SINUS RHYTHM WITH MARKED SINUS ARRHYTHMIA WITH SHORT ME INTERVAL PROBABLE INFERIOR MYOCARDIAL INFARCTION, OF INDETERMINATE AGE SIMILAR 09/24/16 15:59 Electronically Signed On 09-25-2016 8:53:28 EDT by Angeles Greenberg
[2016-09-25] MEDS ORDERED: CLOPIDOGREL 75 MG TAB PO SCH (09:00)
[2016-09-25] MEDS: SENOKOT S TAB PO SCH ×2 (09:00→20:11)
[2016-09-25] MEDS ORDERED: METOPROLOL SUCC *XL* 25MG TAB (TopROL *XL*) PO SCH (09:00)
[2016-09-25] MEDS: OMEPRAZOLE 20 MG CAP PO SCH (09:26)
[2016-09-25] MEDS: PRASUGREL 10 MG TAB (EFFIENT) PO SCH (09:26)
[2016-09-25] MEDS: ENOXAPARIN 40 MG/0.4 ML SYRINGE (J1650) SC SCH (09:26)
[2016-09-25] MEDS: TOPIRAMATE (TopAMAX) 25 MG TAB PO SCH ×2 (09:26→20:08)
[2016-09-25] MEDS: ASPIRIN 81 MG ENTERIC TAB PO SCH (09:26)
[2016-09-25] MEDS: MELOXICAM (MOBIC) 7.5 MG TAB PO SCH ×2 (09:28→20:09)
[2016-09-25] MEDS: LORATADINE 10 MG TAB PO SCH (09:28)
[2016-09-25] MEDS: GABAPENTIN 300 MG CAP PO SCH ×3 (09:28→20:09)
[2016-09-25] MEDS ORDERED: NS 500 ML IV ONE (10:00)
--- NOTE | 2016-09-25 11:14 | IPN ---
DATE: 09/24/2016 TIME PATIENT WAS SEEN: This morning at 8:30 The patient has been seen and examined at bedside. No acute events overnight. The patient still complains of feeling the same. Still feels very dizzy when he stands up. Feels tired. Denies any fevers or chills, however. Denies any chest pain, trouble breathing, abdominal pain, nausea, vomiting, diarrhea or constipation. Denies any other current new complaints. PHYSICAL EXAMINATION: VITAL SIGNS: Temperature was 96.7, pulse 59, respirations 18, blood pressure supine was 147/83, sitting 157/92, standing was 132/97, oxygen saturation 96% on room air. GENERAL: The patient is a middle aged male who was alert, awake, oriented times three. Does not appear to be in distress. Sitting up comfortably in his recliner with the head elevated at 60 degrees. HEENT: Normocephalic, atraumatic. Extraocular motors intact. Mucosa moist. NECK: Supple. No neck lymphadenopathy. CARDIOVASCULAR: Irregular heartbeat. S1, S2. 2/6 systolic heart murmur. Pacemaker was on the left side. LUNGS: Diffuse rhonchi bilaterally. ABDOMEN: Positive bowel sounds. Soft, nontender, nondistended. No peritoneal signs. No ecchymosis. EXTREMITIES: No edema, clubbing or cyanosis. SKIN: Warm and dry. NEUROLOGIC: The patient's cerebellar examinations shows the patient still has poor sluggish response with finger to nose. The patient was not able to tolerate standing up without support. The patient felt dizzy. However, cranial nerves II through XII was intact. Sinter Feeder strength was good in bilateral upper extremities. Eyebrow rise was equal bilaterally. Tongue protruding was symmetrical. LABORATORY DATA: WBC is 7.5, hemoglobin 12.7, hematocrit 39.9 with platelet count of 229 and MCV of 97.8. Sodium 142, potassium 3.9, chloride 108, bicarbonate 25, BUN 18, creatinine 1.13 , GFR greater than 60, fasting glucose 87, calcium 8.7, magnesium 2.1, triglycerides 91, cholesterol 150, LDL 75.8, HDL 56, cholesterol to HDL ratio was 2.68. No new imaging. CURRENT MEDICATIONS: - Lovenox 40 mg subcutaneous daily - aspirin 81 mg one tablet by mouth daily - Claritin 10 mg one tablet by mouth daily - Toprol XL 25 mg one tablet by mouth daily - omeprazole 20 mg one tablet by mouth daily - prasugrel 10 mg one tablet by mouth daily - Senokot one tablet by mouth twice a day - Lipitor 40 mg one tablet by mouth at night - Symbicort 160/4.5 mg (budesonide formoterol fumarate) two puff inhalation twice a day - Mobic 7.5 mg one tablet by mouth twice a day - Singulair, montelukast sodium 10 mg one tablet by mouth at night - Topiramate 50 mg one tablet by mouth twice a day - gabapentin 300 mg one tablet by mouth three times a day - [place], Anexsia 5/325 one tablet by mouth every six hours as needed - albuterol sulfate two puff inhalation four times a day as needed - Tylenol 650 mg one tablet by mouth every 4 hours as needed - Zofran 4 mg IV every 6 hours as needed ASSESSMENT AND PLAN: 56-year-old male with past medical history of coronary artery disease, status post myocardial infarction and stent. In addition, the patient also has cardiomyopathy, status post pacemaker, defibrillator, angina, hypertension, abnormal electrocardiogram (EKG) with sinus arrhythmia, chronic obstructive pulmonary disease (COPD), gastroesophageal reflux disease (GERD), migraine headache, who presented with: 1. Near syncope with gait instability. We will rule out cardiac etiology versus neurological causes. We have planned on contacting Dr. Goyal from cardiology for possible interrogation of the pacemaker. In addition, Dr. Bustamante from neurology has been consulted. At this point, we will followup with echocardiogram, cardiac markers. The patient was unable to undergo MRI of the head due to the patient has pacemaker/defibrillator. The patient did fall back in July and hit the back of his head and it started before gait instability started. Questionable stroke versus traumatic brain injury. The patient's CT back then was negative; however. CT was also negative yesterday. We will continue neuro checks and followup with Dr. Bustamante's recommendations. 2. Chest tightness. We will rule out acute coronary syndrome with serial cardiac markers and continue to monitor. 3. Coronary artery disease, status post myocardial infarction and stent. Continue the patient on aspirin, atorvastatin, metoprolol and continue to monitor the patient. Possibly we will reduce metoprolol due to the patient's near syncope. The patient was also found to be bradycardic with heart rate in the 40s. 4. Cardiomyopathy, pacemaker/defibrillator. Dr. Goyal was initially contacted ; however, due to patient's corn cutter is local, Dr. Goyal believes it would be better for patient to see his corn cutter out patient and he does not believe this is an emergency right now. We will followup with the patient's echocardiogram. The patient possibly needs interrogation of the pacemaker. We will continue to follow. In addition, due to cardiac telemetry, it shows bradycardia with heart rate in the 40s. We will possibly reduce the metoprolol and continue to monitor. 5. Chronic obstructive pulmonary disease (COPD). Continue home inhaler, as well as DuoNeb. 6. History of hypertension. Continue blood pressure medications with isosorbide mononitrate, metoprolol. Continue to monitor. 7. History of gastroesophageal reflux disease (GERD). Continue proton pump inhibitor. 8. Migraine headaches. Continue Topamax. 9. Angina. Continue Ranexa. 10. Deep vein thrombosis (DVT) prophylaxis with Lovenox. DISPOSITION: The patient has near syncope and gait instability. We will rule out neurological versus cardiac etiology. Followup with echocardiogram. The patient has been discussed with attending doctor, Dr. Weir. My preceptor for this patient encounter was Dr. Weir. The preceptor was physically present in the building during the encounter and was fully available. As needed, all aspects of the patient interview, examination, medical decision making process, and medical care plan development were reviewed and approved by the preceptor. The preceptor is aware and concurs with the plan as stated in the body of this note and will attest to such by his/her cosignature. Attending note: patient seen and examined independently. All aspects of medical treatment discussed with resident and agree with above course of action MTDD
[2016-09-25] MEDS: guaiFENesin ER 600 MG TAB PO SCH ×2 (11:18→20:09)
--- NOTE | 2016-09-25 11:18 | REP ---
Bilateral carotid artery duplex ultrasound: Peak flow velocity analysis: RIGHT LEFT ICA. Peak flow velocity cm/sec 72 76 ICA Diastolic flow velocity cm/sec 21 21 ICA/CCA Ratio 0.48 0.50 There is shallow atheromatous plaque extending from the distal CCAs into the bulbs into the proximal ICAs and ECAs bilaterally. Peak flow velocities are normal bilaterally. The findings indicate less than 50% narrowing bilaterally. There is no significant stenosis on the right or the left. There is antegrade flow in the vertebral arteries bilaterally. Signed by Khai Quinonez MD 09/25/2016 11:10 A
[2016-09-25 12:00] VITALS: BP_SYST 138; BP_SYST 143; BP_SYST 156; BP_DIAS 77; BP_DIAS 82; BP_DIAS 85
[2016-09-25 16:00] VITALS: BP 128/75
--- NOTE | 2016-09-25 18:30 | ECGEPIP ---
Stationary ECG Study [facility] Test Date: 2016-09-25 Pat Name: ROME DODSON Department: Room: [place] [address] Gender: M Pinion Polisher: DANIEL : 1960 Requested By: JAISON CARLSON Order Number: [id number] Reading MD: Alfonzo Samayoa Measurements Intervals [place] Rate: 63 P: 72 AK: 101 QRS: 26 QRSD: 106 T: -15 QT: 421 QTc: 431 Interpretive Statements SINUS RHYTHM WITH ISOLATED PREMATURE SUPRAVENTRICULAR CONTRACTIONS PROBABLE INFERIOR MYOCARDIAL INFARCTION, OF INDETERMINATE AGE LAST TRACING ON 09/24/2016 AT 17:11:07, NO SIGNIFICANT CHANGES Electronically Signed On 09-25-2016 18:30:18 EDT by Alfonzo Samayoa
--- NOTE | 2016-09-25 19:29 | ECHO ---
DATE OF PROCEDURE: 09/25/2016 AGE: 56 GENDER: Male HEIGHT: 73 inches WEIGHT: 170 pounds BODY SURFACE AREA: 2.0 m2 PATIENT LOCATION: Inpatient, PCU, room 3213 REFERRING PHYSICIAN: Cary Blevins MD INDICATION: Syncope. 2-D MEASUREMENTS: RV: 4.5 cm LV: 5.4 cm Septum: 1.1 cm Posterior wall: 1.1 cm Aortic root: 3.2 cm LA: 3.7 cm LVEF: 60% DOPPLER MEASUREMENTS: AV: 1.5 m/s LVOT: 0.83 m/s LVOT diameter: 2.1 cm MV-E: 63, A: 44, EA ratio: 1.5 Early mitral deceleration time: 282 ms E prime: 4.6, A prime: 6.5, EE prime ratio: 14 PV: 0.75 m/s Pulmonary artery acceleration time: 106 ms RVSP: 45 mmHg IVC: 2.4 cm COMMENTS: Normal sinus rhythm with incomplete left bundle branch block pattern. Normal left atrial and left ventricular size. At least mildly dilated right heart chambers. LV wall thickness was normal, except for some thinning of the proximal inferoseptal wall. On real-time imaging from the parasternal and apical projections, the proximal inferoseptal wall was akinetic, but the mid and distal inferoseptal bates moved normally. Other bates also moved normally. Normal-appearing mitral valvular apparatus and leaflet excursion with no posterior systolic buckling. Three equal size aortic cusps of normal thickness and cusp separation. Normal aortic root size. Pacing lead could be visualized traversing right heart structures, but otherwise no apparent intracardiac mass or pericardial effusion. Color flow Doppler study taken from the parasternal and apical projection showed no aortic, trace mitral and mild tricuspid insufficiency. Guided continuous wave Doppler of his aortic valve showed a normal peak systolic velocity against LV outflow tract obstruction. Pulsed and continuous wave Doppler of his LV inflow tract taken from the apical four-chamber projection showed normal diastolic filling velocities against mitral stenosis. There was a normal filling pattern, but a prolonged early mitral deceleration time and tissue Doppler also suggesting a degree of impaired LV diastolic function with at least borderline increased mean left atrial pressure. Pulsed and continuous wave Doppler of his pulmonary trunk showed a normal peak systolic velocity against RV outflow tract obstruction. His pulmonary artery acceleration time was abbreviated consistent with at least a mildly elevated pulmonary vascular resistance. Guided continuous wave Doppler of his tricuspid valve allowed our estimation of his right ventricular systolic pressure (moderately increased). His inferior vena cava was mildly dilated with slightly reduced respiratory collapse consistent with an elevated central venous pressure of at least 10 - 15 mmHg. On the subcostal projections, there was a 4.4 x 6.0 cm hepatic cyst. CONCLUSIONS: Unable to clearly identify a structural or functional abnormality to account for the patient's syncopal spell. Normal left ventricular size and wall thickness with thinning and akinesis of the proximal inferoseptal wall in keeping with prior infarction. Preserved global resting systolic function. Left atrial size was upper limits of normal with Doppler evidence of impairment of LV diastolic function (pseudo normalized) and slightly elevated mean left atrial pressure. Mildly dilated right heart chambers with Doppler evidence of moderate pulmonary hypertension. Mildly dilated inferior vena cava with reduced respiratory collapse suggestive of a slightly elevated central venous pressure. Large intrahepatic cyst. Jeferson Goyal MD [facility]
[2016-09-25] MEDS: MONTELUKAST 10 MG TAB PO SCH (20:08)
[2016-09-25] MEDS: ATORVASTATIN 20 MG TAB PO SCH (20:09)
[2016-09-25] MEDS: NORCO, ANEXSIA 5/325MG TABLET (HYDROcodone/ACETAMINOPHEN) PO PRN (20:10)
--- NOTE | 2016-09-25 21:50 | REPUSA ---
CLINICAL HISTORY: R/o CVA. TECHNIQUE: Multiple axial CT images were obtained through brain without IV contrast material. COMMENTS: The study shows normal configuration of sella turcica. There are no intra or extra-axial collections. There is no mass effect or midline shift. There is no evidence of hematoma formation. No hydrocephalus is present. The ventricles are symmetrical. No abnormal calcifications are present. No significant focal abnormalities are seen either in the posterior fossa or supratentorial compartme nt. IMPRESSION: No acute intracranial pathology. Consider follow up with MRI/diffuse as clinically warranted. Thank you for your kind referral of this patient.
[2016-09-26 00:31] VITALS: BP_SYST 128; BP_SYST 141; BP_SYST 145; BP_DIAS 59; BP_DIAS 77
[2016-09-26] MEDS: NORCO, ANEXSIA 5/325MG TABLET (HYDROcodone/ACETAMINOPHEN) PO PRN ×3 (03:13→20:30)
[2016-09-26 05:18] VITALS: BP 141/75
[2016-09-26 05:45] LABS: ANION GAP 8 MEQ/L (8-16); BLOOD UREA NITROGEN 19 MG/DL (7-18); CALCIUM LEVEL 8.3 MG/DL (8.5-10.1); CARBON DIOXIDE LEVEL 23 MEQ/L (21-32); CHLORIDE LEVEL 113 MEQ/L (98-107); CREATININE FOR GFR 0.93 MG/DL (0.70-1.30); GLOMERULAR FILTRATION RATE > 60.0 (>56); GLUCOSE, FASTING 94 MG/DL (70-105); POTASSIUM SERUM 3.7 MEQ/L (3.5-5.1); SODIUM LEVEL 144 MEQ/L (136-145)
[2016-09-26 06:01] LABS: MEAN CORPUSCULAR VOLUME 96.9 fl (80.0-96.0); RED CELL DISTRIBUTION WIDTH 14.6 % (11.5-14.5); WHITE BLOOD COUNT 7.5 K/mm3 (4.0-10.0)
[2016-09-26] MEDS: SYMBICORT 160/4.5MCG INHALER 6GM INH SCH ×2 (07:23→19:21)
[2016-09-26 08:00] VITALS: BP 164/74
[2016-09-26] MEDS: ENOXAPARIN 40 MG/0.4 ML SYRINGE (J1650) SC SCH (08:26)
[2016-09-26] MEDS: METOPROLOL SUCC *XL* 12.5MG PER 1/2 TAB (TopROL *XL*) PO SCH (08:27)
[2016-09-26] MEDS: PRASUGREL 10 MG TAB (EFFIENT) PO SCH (08:28)
[2016-09-26] MEDS: LORATADINE 10 MG TAB PO SCH (08:28)
[2016-09-26] MEDS: OMEPRAZOLE 20 MG CAP PO SCH (08:28)
[2016-09-26] MEDS: TOPIRAMATE (TopAMAX) 25 MG TAB PO SCH ×2 (08:28→20:30)
[2016-09-26] MEDS: guaiFENesin ER 600 MG TAB PO SCH ×2 (08:28→20:29)
[2016-09-26] MEDS: ASPIRIN 81 MG ENTERIC TAB PO SCH (08:28)
[2016-09-26] MEDS: SENOKOT S TAB PO SCH ×3 (08:28→20:31)
[2016-09-26] MEDS: GABAPENTIN 300 MG CAP PO SCH ×3 (08:28→20:31)
[2016-09-26] MEDS: MELOXICAM (MOBIC) 7.5 MG TAB PO SCH ×2 (08:28→20:31)
[2016-09-26] MEDS: MECLIZINE 12.5 MG TAB PO SCH ×3 (09:00→20:31)
--- NOTE | 2016-09-26 10:02 | IPN ---
DATE: 09/26/2016 Time patient was seen was this morning at 8:10 a.m. The patient has been seen and examined at bedside. No acute events overnight. The patient no longer has bradycardia. The patient however still admits to some dizziness when he stands up and per the patient, he was having trouble walking to the bathroom from his bed yesterday. The patient however, was walking down from the hallways to the door. Otherwise, the patient does not believe he is ready to go home. The patient otherwise denies any fever or chills, any chest pain, trouble breathing, abdominal pain, nausea, vomiting, diarrhea or constipation, or any other current new complaints. PHYSICAL EXAMINATION: VITAL SIGNS: Temperature was 97.8, pulse 69, respirations 19, blood pressure 167/74, oxygen saturation 94% on room air. GENERAL: The patient is a middle aged well-developed, well-nourished middle aged male who appears to be older than his age. He was alert, awake, oriented times three. Does not appear to be in distress. Lying comfortably in bed with head elevated at a 45 degree angle. HEENT: Normocephalic, atraumatic. Extraocular motors intact. Mucous moist. NECK: Supple. No neck lymphadenopathy. CARDIOVASCULAR: Regular rate and rhythm. Normal S1 and S2 with a at lead 2/6 systolic heart murmur. LUNGS: Show slight wheezing and rhonchi bilaterally. ABDOMEN: Positive bowel sounds. Soft, nontender, nondistended. No peritoneal signs. No ecchymosis. EXTREMITIES: No edema, clubbing or cyanosis. SKIN: Warm and dry. NEUROLOGIC: Cranial nerves II through XII intact. LABORATORIES: WBC is 7.5, hemoglobin 12.1, hematocrit 37.9 with platelet count of 211. Sodium 144, potassium 3.7, chloride 113, bicarbonate 23, BUN 19, creatinine 0.93 , GFR greater than 60, fasting glucose 94, calcium 8.3, magnesium 2. The patient's repeat CT head showed no acute intracranial pathology. ASSESSMENT/PLAN: 56-year-old male with past medical history of coronary artery disease, status post myocardial infarction and stent. In addition, the patient also has cardiomyopathy, status post pacemaker, defibrillator, also history of angina, hypertension, abnormal EKG with sinus arrhythmia, chronic obstructive pulmonary disease (COPD), gastroesophageal reflux disease (GERD), migraine headache, who presented with: 1. Near syncope and gait instability. Dr. Bustamante from neurology has been consulted and has seen the patient. MRI did not get done due to the patient's pacemaker defibrillator. CT scan of the head and repeat CT scan were negative. The patient however still has trouble walking. Will continue to monitor the patient. Will followup with Dr. Bustamante's recommendation. 2. Chest tightness, unresolved. Serial cardiac markers have been negative. 3. History of coronary artery disease, status post PA and stent. Continue the patient on aspirin, atorvastatin, metoprolol and continue to monitor the patient. The patient's metoprolol was reduced yesterday due to bradycardia. Today, ventricular rate was in the 70s and 80s. 4. Cardiomyopathy with pacemaker and defibrillator. Dr. Bhatti was contacted, who is the patient's materials scientist. Recommended to discharge the patient on Wednesday and see him in the afternoon at his office. However, at this point, the patient still has gate instability. Will continue to work him for safe discharge. 5. COPD. Continue home inhaler and DuoNeb. 6. History of hypertension. Continue home blood pressure medications, isosorbide mononitrate and metoprolol. Will possibly add Norvasc due to hypertension. 7. GERD. Continue home proton pump inhibitor. 8. Migraine headache. Continue Topamax. 9. Angina. Continue Ranexa. 10. Deep vein thrombosis (DVT) prophylaxis with Lovenox. DISPOSITION: The patient still has gait instability. Will continue to monitor and followup with neurology recommendations and the patient will need followup with his materials scientist once the patient is discharge. The patient has been discussed with attending doctor, Dr. Weir. My preceptor for this patient encounter was Dr. Nahid Weir. The preceptor was physically present in the building during the encounter and was fully available. As needed, all aspects of the patient interview, examination, medical decision making process, and medical care plan development were reviewed and approved by the preceptor. The preceptor is aware and concurs with the plan as stated in the body of this note and will attest to such by his/her cosignature. Attending note: patient seen and evaluated independently. Discussed all aspects of findings and treatment plan with resident. Agree with plan as outlined above. LARON
[2016-09-26 12:00] VITALS: BP 125/61
--- NOTE | 2016-09-26 12:46 | REP ---
CT study of the cervical spine without contrast: History: Dizziness. Imbalance. Technique: Helical scanning is acquired and overlapping 2 mm high resolution axial images were generated and reviewed at bone and soft tissue window settings. Coronal and sagittal multiplanar re-formations images are generated. CT findings: There is no evidence of cervical spine element fracture. No skull base fracture is seen. Cervical vertebral body heights are preserved. Alignment is normal. Facet joints are normally aligned bilaterally at each cervical level on multiplanar re-formations images. There is no evidence of intraspinal or paraspinal hematoma. No extra vertebral abnormality is seen. There is mild to moderate degenerative disc disease at multiple levels in the cervical spine. There is degenerative disc disease at the C7-T1 and there is mild old wedging at the anterior aspect of the T1 vertebral body. There is osteoarthritis at the articulation between C1 and the dens. Mild facet osteoarthritis is seen. Impression: Degenerative spondylosis changes, otherwise negative CT study of the cervical spine without contrast. No fracture seen. Signed by Rahat Pruitt MD 09/26/2016 01:45 P
[2016-09-26] MEDS: amLODIPine 5 MG TAB PO SCH (15:28)
[2016-09-26 16:00] VITALS: BP 143/92
[2016-09-26] MEDS ORDERED: traMADol 50 MG TAB PO PRN (16:15)
--- NOTE | 2016-09-26 19:19 | CR ---
DATE OF CONSULTATION: 09/25/2016 REFERRING PHYSICIAN: Dr. Nahid Weir REASON FOR CONSULTATION: Dizziness and imbalance. HISTORY OF PRESENT ILLNESS: Eduardo Garcia is a 56-year-old man with a history of multiple medical problems including coronary artery disease, ischemic cardiomyopathy, pacemaker and defibrillator placement, chronic back pain, chronic obstructive pulmonary disease (COPD), who was at his baseline state of health until one month ago when he fell and hit his head on ice. He fell backwards and hit the back of his head on the ground when he slipped on ice. Since then he has been feeling dizzy and feels imbalance while walking. He states until a month ago he did not have any problem with his balance and was walking without assistance. He states that he lost consciousness for few seconds when he fell a month ago. He also has a sinus infection. He feels constant dizziness which is aggravated by standing and even sitting up. Turning his head also increase his dizziness. He complains of 8 out of 10 occipital headache. He also complains of neck pain with his headache. He has history of chronic low back pain and goes to pain clinic and gets trigger point injections. He denies any numbness or weakness in his arms and legs. He denies any dysphagia, dysarthria, diplopia or urinary incontinence. PAST MEDICAL HISTORY: 1. Coronary artery disease status post myocardial infarction and a stent. 2. Ischemic cardiomyopathy status post pacemaker and defibrillator placement in 2012. 3. Hypertension. 4. Chronic obstructive pulmonary disease (COPD). 5. Acid reflux. 6. Chronic low back pain. 7. Chronic headaches. 8. Collar bone surgery on right side. 9. Right ankle fracture and repair. HOME MEDICATIONS: - Vicodin 5/325 mg by mouth every 6 hours as needed - Ventolin inhaler 2 puffs four times a day as needed - aspirin 81 mg by mouth daily - Lipitor 40 mg by mouth daily - Symbicort 160/4.5 mcg, 2 puffs inhalation twice a day - gabapentin 800 mg by mouth three times a day - isosorbide mononitrate 60 mg by mouth daily - Claritin 10 mg by mouth daily - meloxicam 7.5 mg by mouth twice a day as needed - Toprol 25 mg by mouth daily - Singulair 10 mg by mouth daily - Prilosec 20 mg by mouth daily - Effient 10 mg by mouth daily - Ranexa 1000 mg by mouth three times a day - Topamax 50 mg by mouth twice a day SOCIAL HISTORY: He drinks alcohol occasionally. He still smokes a pipe every day. He used to smoke cigarettes in past. He denies any illicit drugs. FAMILY HISTORY: Mother had diabetes and heart disease. 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 REVIEW OF SYSTEMS: All systems were reviewed and were found to be noncontributory except as mentioned in the history of present illness. PHYSICAL EXAMINATION: Blood pressure 125/75, pulse 105, respiratory rate 20, 97% saturation on room air. HEART: Regular rate and rhythm. LUNGS: Clear to auscultation. No pedal edema. NEUROLOGIC EXAMINATION: Patient is awake, alert, oriented to place, person and time. Normal speech, comprehension and repetition. No facial weakness. Extraocular muscles are intact. Tongue and uvula are midline. 5/5 strength in all four extremities. Deep tendon flexes are 1+ in arms and legs. Normal sensation to pinprick, vibration and touch. There is no dysmetria or nystagmus. His gait is unsteady, like astasia and abasia. DIAGNOSTIC STUDIES: CT scan of his head was within normal limits twice in the last 24 hours. ASSESSMENT: 1. Multifactorial gait difficulty. 2. Possible concussion and postconcussive syndrome. 3. Dizziness related to above, although his history of sinusitis can also contribute to his dizziness by affecting his peripheral vestibular system. 4. Chronic back pain. 5. Chronic tension headaches, intractable 6. Neck pain. PLAN 1. CT scan of cervical spine. We cannot do MRI scan of his brain or spine due to his pacemaker and defibrillator. 2. Physical and occupational therapy. 3. Check vitamin B12, serum copper, thiamine level, etc. 4. 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
[2016-09-26] MEDS ORDERED: SLF 3 ML SYR IV PRN (20:00)
[2016-09-26 20:25] VITALS: BP 136/78
[2016-09-26] MEDS: ATORVASTATIN 20 MG TAB PO SCH (20:29)
[2016-09-26] MEDS: MONTELUKAST 10 MG TAB PO SCH (20:31)
[2016-09-26] MEDS: SLF 3 ML SYR IV SCH (20:32)
[2016-09-26] MEDS: ALBUTEROL 90 MCG/ACT 8GM HFA INHALER INH PRN (20:37)
[2016-09-27] VITALS (7 sets, daily range): BP systolic 127–150; BP diastolic 66–92
[2016-09-27] MEDS: SLF 3 ML SYR IV SCH ×3 (05:18→22:06)
[2016-09-27 05:29] LABS: MEAN CORPUSCULAR VOLUME 99.9 fl (80.0-96.0); RED CELL DISTRIBUTION WIDTH 14.6 % (11.5-14.5); WHITE BLOOD COUNT 7.9 K/mm3 (4.0-10.0)
[2016-09-27 05:48] LABS: ANION GAP 5 MEQ/L (8-16); BLOOD UREA NITROGEN 18 MG/DL (7-18); CALCIUM LEVEL 8.3 MG/DL (8.5-10.1); CARBON DIOXIDE LEVEL 25 MEQ/L (21-32); CHLORIDE LEVEL 115 MEQ/L (98-107); CREATININE FOR GFR 0.83 MG/DL (0.70-1.30); GLOMERULAR FILTRATION RATE > 60.0 (>56); GLUCOSE, FASTING 95 MG/DL (70-105); MAGNESIUM LEVEL 1.9 MG/DL (1.8-2.4); POTASSIUM SERUM 3.7 MEQ/L (3.5-5.1); SODIUM LEVEL 145 MEQ/L (136-145)
[2016-09-27] MEDS: SYMBICORT 160/4.5MCG INHALER 6GM INH SCH ×2 (08:16→21:08)
[2016-09-27] MEDS: ALBUTEROL 90 MCG/ACT 8GM HFA INHALER INH PRN (08:16)
[2016-09-27] MEDS: ENOXAPARIN 40 MG/0.4 ML SYRINGE (J1650) SC SCH (09:00)
[2016-09-27] MEDS: SENOKOT S TAB PO SCH ×2 (09:00→21:00)
[2016-09-27] MEDS: guaiFENesin ER 600 MG TAB PO SCH ×2 (09:01→22:04)
[2016-09-27] MEDS: GABAPENTIN 300 MG CAP PO SCH ×3 (09:01→22:04)
[2016-09-27] MEDS: LORATADINE 10 MG TAB PO SCH (09:01)
[2016-09-27] MEDS: MECLIZINE 12.5 MG TAB PO SCH ×3 (09:01→22:03)
[2016-09-27] MEDS: ASPIRIN 81 MG ENTERIC TAB PO SCH (09:01)
[2016-09-27] MEDS: TOPIRAMATE (TopAMAX) 25 MG TAB PO SCH ×2 (09:01→22:05)
[2016-09-27] MEDS: amLODIPine 5 MG TAB PO SCH (09:02)
[2016-09-27] MEDS: METOPROLOL SUCC *XL* 12.5MG PER 1/2 TAB (TopROL *XL*) PO SCH (09:02)
[2016-09-27] MEDS: PRASUGREL 10 MG TAB (EFFIENT) PO SCH (09:03)
[2016-09-27] MEDS: MELOXICAM (MOBIC) 7.5 MG TAB PO SCH (09:03)
[2016-09-27] MEDS: OMEPRAZOLE 20 MG CAP PO SCH (09:03)
--- NOTE | 2016-09-27 09:45 | IPN ---
DATE: 09/27/2016 56-year-old gentleman seen at bedside. No overnight issues reported. No chest pain, lightheadedness, dizziness, nausea, vomiting or shortness of breath. He is encouraged to participate with physical therapy. Telemetry shows no abnormalities. OBJECTIVE: Temperature is 98.2, pulse 74 and regular, respiratory rate is 20, blood pressure (BP) 150/83, SpO2 is 95% on room air. General: The patient appears to be in no acute distress. He is alert, oriented. HEENT: Unremarkable. Lungs: Clear. Heart: Regular rate and rhythm. Abdomen: Soft. Extremities: No edema. No calf tenderness. LABORATORY DATA: White count 7.9, hemoglobin 12.0, platelets 231,000. Sodium is 145, potassium 3.7, chloride 115, bicarbonate 25, anion gap 5, BUN is 18, creatinine 0.83, glucose 95. Vitamin B1, B12 levels are pending at this time. Plasma copper is pending at this time. His thyroid panel has been unremarkable. CT of the C-spine does show some degenerative spondylosis and degenerative changes. ASSESSMENT AND PLAN: 1. Generalized weakness, dizziness, likely related to possible post concussive syndrome. Appreciate Dr. Bustamante's input. 2. Chronic neck and back pain, likely degenerative disc disease and osteoarthritis. Will continue with Tylenol, gabapentin as needed, as well as the Vicodin that he gets as an outpatient. 3. Hypertension. We did make a decrease in his metoprolol due to bradycardia. He has had no further episodes. Therefore, we may add on lisinopril starting today and we will see how he does with this. 5. Chronic obstructive pulmonary disease (COPD), stable. 6. Gastroesophageal reflux disease (GERD), stable. 7. Chronic headaches. As outlined, and appreciate Dr. Bustamante's input. 8. History of cardiomyopathy with pacemaker. He will followup with Dr. Bhatti as an outpatient. 9. History of angina, stable. Continue on Ranexa. 10. History of migraines. Continue on Topamax. 11. Deep venous thrombosis (DVT) prophylaxis with Lovenox. DISPOSITION: The patient will be downgraded to the general medical floor. He does continue to have some issues with generalized weakness, gait instability. He was initially admitted for "near syncope" but he has not demonstrated any issues on telemetry and appreciate Dr. Bustamante's input. Will continue with physical therapy as outlined. Patient and family services (PFS) has been consulted since there is a question of his safe discharge. LARON
[2016-09-27] MEDS ORDERED: MAALOX 30 ML SUSP *UDC PO PRN (11:15)
[2016-09-27] MEDS: LISINOPRIL 10 MG TAB PO SCH (11:19)
[2016-09-27] MEDS: NABUMETONE 500 MG TAB PO SCH ×2 (16:56→22:05)
[2016-09-27] MEDS: NORCO, ANEXSIA 5/325MG TABLET (HYDROcodone/ACETAMINOPHEN) PO PRN (19:25)
[2016-09-27] MEDS: NITROGLYCERIN 0.4 MG SUBL TABLET SL PRN (20:30)
[2016-09-27] MEDS: RANOLAZINE 500 MG ER TAB PO SCH (20:38)
[2016-09-27] MEDS: ATORVASTATIN 20 MG TAB PO SCH (22:04)
[2016-09-27] MEDS: MONTELUKAST 10 MG TAB PO SCH (22:05)
[2016-09-28] VITALS: BP 125/74
[2016-09-28 04:00] VITALS: BP 139/80
[2016-09-28] MEDS: SLF 3 ML SYR IV SCH ×3 (05:30→20:05)
[2016-09-28 06:56] LABS: MEAN CORPUSCULAR HEMOGLOBIN 31.5 pg (27.0-33.0); MEAN CORPUSCULAR HGB CONC 32.2 g/dl (32.0-36.5); MEAN CORPUSCULAR VOLUME 97.8 fl (80.0-96.0); RED CELL DISTRIBUTION WIDTH 14.7 % (11.5-14.5); WHITE BLOOD COUNT 6.3 K/mm3 (4.0-10.0)
[2016-09-28 07:17] LABS: ANION GAP 7 MEQ/L (8-16); BLOOD UREA NITROGEN 14 MG/DL (7-18); CALCIUM LEVEL 8.7 MG/DL (8.5-10.1); CARBON DIOXIDE LEVEL 23 MEQ/L (21-32); CHLORIDE LEVEL 115 MEQ/L (98-107); CREATININE FOR GFR 0.77 MG/DL (0.70-1.30); GLOMERULAR FILTRATION RATE > 60.0 (>56); GLUCOSE, FASTING 80 MG/DL (70-105); SODIUM LEVEL 145 MEQ/L (136-145)
[2016-09-28] MEDS: SYMBICORT 160/4.5MCG INHALER 6GM INH SCH ×2 (07:28→19:20)
[2016-09-28 08:00] VITALS: BP 142/77
[2016-09-28] MEDS: NABUMETONE 500 MG TAB PO SCH ×3 (09:04→20:04)
[2016-09-28] MEDS: SENOKOT S TAB PO SCH ×2 (09:04→20:04)
[2016-09-28] MEDS: GABAPENTIN 300 MG CAP PO SCH ×3 (09:04→20:04)
[2016-09-28] MEDS: guaiFENesin ER 600 MG TAB PO SCH ×2 (09:06→20:04)
[2016-09-28] MEDS: LISINOPRIL 10 MG TAB PO SCH (09:06)
[2016-09-28] MEDS: TOPIRAMATE (TopAMAX) 25 MG TAB PO SCH ×2 (09:07→20:04)
[2016-09-28] MEDS: MECLIZINE 12.5 MG TAB PO SCH ×3 (09:07→20:04)
[2016-09-28] MEDS: LORATADINE 10 MG TAB PO SCH (09:08)
[2016-09-28] MEDS: RANOLAZINE 500 MG ER TAB PO SCH ×2 (09:09→20:04)
[2016-09-28] MEDS: METOPROLOL SUCC *XL* 12.5MG PER 1/2 TAB (TopROL *XL*) PO SCH (09:09)
[2016-09-28] MEDS: OMEPRAZOLE 20 MG CAP PO SCH (09:10)
[2016-09-28] MEDS: PRASUGREL 10 MG TAB (EFFIENT) PO SCH (09:10)
[2016-09-28] MEDS: ENOXAPARIN 40 MG/0.4 ML SYRINGE (J1650) SC SCH (09:13)
--- NOTE | 2016-09-28 10:10 | IPN ---
DATE: 09/28/[address] Weir. Primary care provider is Dr. Bhatti and Dr. Blanchard in [place]. Eduardo Garcia was seen in pediatrics. He was admitted after a postconcussive dizziness and gait abnormality. He is getting physical therapy today, walking with a walker. He did not use a walker prior to this admission. He has been seen by neurology. Cervical spine CT showed no fracture just degenerative changes. Patient is chronically ill, has an extensive cardiac history. He has had some bradycardia for which I find unusual as he has a pacemaker in. In any case, the metoprolol dose was decreased and his blood pressure medications are being adjusted while he is here. PHYSICAL EXAMINATION: 142/44, pulse 68, respiratory rate 18, 98 degrees, 96% oxygen saturation on room air. General appearance: Chronically ill appearing, looks much older than stated age, walking with a walker with a lot of help from physical therapy, including a belt. Lungs: Decreased breath sounds but clear. Heart: Regular rate and rhythm. 1/6 systolic ejection murmur. Abdomen: Soft, nontender and no masses. Normal strength in the arms and legs. LABORATORIES: CBC is stable. BMP is unremarkable. IMPRESSION: 1. Gait abnormality after fall, suspect a concussion, superimposed on chronic weakness and degenerative changes. He is getting physical therapy. He is on Tylenol, gabapentin and Vicodin, as well as Relafen. Getting physical therapy and I will order a home safety evaluation for tomorrow. I spoke with the physical therapist. Thinks he might be able to pass by tomorrow. 2. Hypertension. Blood pressure is under adequate control at this time. 3. Chronic obstructive pulmonary disease is stable. 4. Cardiomyopathy. He has a pacemaker. Ejection fraction of 60% off echocardiogram during this hospitalization. 5. Coronary artery disease. Stable on his current regimen. He is on a nonsteroidal (Relafen), which increases his cardiac risk. Hopefully, he can be discharged without needing the nonsteroidal. 7. History of migraine headaches. He is on Topamax. He has chronic headaches, which increase his risk of persistent headaches after the fall. Dr. Vernon will assume his care in the morning. He will have a safety evaluation tomorrow.
[2016-09-28] MEDS: ASPIRIN 81 MG ENTERIC TAB PO SCH (10:17)
[2016-09-28] MEDS: amLODIPine 5 MG TAB PO SCH (10:18)
[2016-09-28 12:00] VITALS: BP 147/81
[2016-09-28] MEDS: NORCO, ANEXSIA 5/325MG TABLET (HYDROcodone/ACETAMINOPHEN) PO PRN ×2 (12:52→20:05)
[2016-09-28 16:00] VITALS: BP 137/85
[2016-09-28] MEDS: CYANOCOBALAMIN 1,000 MCG/ML VIAL (J3420) IM SCH (18:09)
[2016-09-28 20:00] VITALS: BP 125/80
[2016-09-28] MEDS: ATORVASTATIN 20 MG TAB PO SCH (20:04)
[2016-09-28] MEDS: MONTELUKAST 10 MG TAB PO SCH (20:04)
[2016-09-29] VITALS: BP 124/70
[2016-09-29 04:00] VITALS: BP 138/72
[2016-09-29] MEDS: SLF 3 ML SYR IV SCH ×3 (06:00→21:36)
[2016-09-29 07:08] LABS: MEAN CORPUSCULAR HEMOGLOBIN 31.2 pg (27.0-33.0); MEAN CORPUSCULAR HGB CONC 31.3 g/dl (32.0-36.5); MEAN CORPUSCULAR VOLUME 99.5 fl (80.0-96.0); RED CELL DISTRIBUTION WIDTH 14.3 % (11.5-14.5)
[2016-09-29 07:16] LABS: ANION GAP 9 MEQ/L (8-16); BLOOD UREA NITROGEN 18 MG/DL (7-18); CALCIUM LEVEL 8.6 MG/DL (8.5-10.1); CARBON DIOXIDE LEVEL 21 MEQ/L (21-32); CHLORIDE LEVEL 111 MEQ/L (98-107); CREATININE FOR GFR 0.79 MG/DL (0.70-1.30); GLOMERULAR FILTRATION RATE > 60.0 (>56); GLUCOSE, FASTING 87 MG/DL (70-105); POTASSIUM SERUM 4.1 MEQ/L (3.5-5.1); SODIUM LEVEL 141 MEQ/L (136-145)
[2016-09-29] MEDS: SYMBICORT 160/4.5MCG INHALER 6GM INH SCH ×2 (07:39→20:43)
[2016-09-29 08:00] VITALS: BP 123/86
[2016-09-29] MEDS: ENOXAPARIN 40 MG/0.4 ML SYRINGE (J1650) SC SCH (08:28)
[2016-09-29] MEDS: ASPIRIN 81 MG ENTERIC TAB PO SCH (08:29)
[2016-09-29] MEDS: SENOKOT S TAB PO SCH ×3 (08:29→21:00)
[2016-09-29] MEDS: RANOLAZINE 500 MG ER TAB PO SCH ×2 (08:29→21:44)
[2016-09-29] MEDS: PRASUGREL 10 MG TAB (EFFIENT) PO SCH (08:29)
[2016-09-29] MEDS: NABUMETONE 500 MG TAB PO SCH ×3 (08:29→21:36)
[2016-09-29] MEDS: OMEPRAZOLE 20 MG CAP PO SCH (08:29)
[2016-09-29] MEDS: GABAPENTIN 300 MG CAP PO SCH ×3 (08:30→21:37)
[2016-09-29] MEDS: amLODIPine 5 MG TAB PO SCH (08:30)
[2016-09-29] MEDS: MECLIZINE 12.5 MG TAB PO SCH ×3 (08:30→21:37)
[2016-09-29] MEDS: guaiFENesin ER 600 MG TAB PO SCH ×2 (08:30→21:37)
[2016-09-29] MEDS: TOPIRAMATE (TopAMAX) 25 MG TAB PO SCH ×2 (08:30→21:36)
[2016-09-29] MEDS: LORATADINE 10 MG TAB PO SCH (08:30)
[2016-09-29] MEDS: METOPROLOL SUCC *XL* 12.5MG PER 1/2 TAB (TopROL *XL*) PO SCH (08:31)
[2016-09-29] MEDS: LISINOPRIL 10 MG TAB PO SCH (08:31)
[2016-09-29] MEDS: CYANOCOBALAMIN 1,000 MCG/ML VIAL (J3420) IM SCH (08:31)
--- NOTE | 2016-09-29 14:36 | IPN ---
DATE: 09/29/2016 SUBJECTIVE: The patient reports that he still has numbness in his bilateral lower extremities and has difficulty with ambulating, but is slowly improving. He denies chest pain, shortness of breath, fevers, chills, nausea, vomiting, or diarrhea. OBJECTIVE: VITAL SIGNS: Temperature 99.2, pulse 95, respiratory rate 20, blood pressure 123/86, oxygen saturation 98% on room air. GENERAL: He is a disheveled, middle-aged, man lying flat on his back. He does not appear to be in any acute distress. He is reading a menu and is comfortable. HEENT: Cranial nerves II through XII are grossly intact. He has no numerous well-healed scars. No elevation of central venous pressure. CARDIOVASCULAR EXAM: S1, S2 regular. RESPIRATORY EXAM: Clear. ABDOMINAL EXAM: Benign. EXTREMITIES: No clubbing, cyanosis or edema. He has good strength with decreased sensation in his bilateral lower extremities. LABORATORY STUDIES: WBC 6.0, hemoglobin 12.8, hematocrit 40.8, platelet count 221. Chemistry panel: Sodium 141, potassium 4.1, chloride 111, bicarbonate 21, BUN 18, creatinine 0.7, vitamin B12 level is low at 244. He has had multiple sets of cardiac enzymes, which are negative. TSH within normal limits. Plasma copper level is pending. IMAGING: The patient did have a CT scan of his head, which revealed no intracranial hemorrhage. He also had a vascular ultrasound that revealed antegrade flow in the vertebral arteries bilaterally and less than 50% stenosis bilaterally of the carotids. He had a repeat head CT that showed no acute intracranial pathology, as well as a cervical spine CT that revealed degenerative spondylosis changes. Otherwise, negative CT of the cervical spine. ASSESSMENT AND PLAN: This is a 56-year-old man with multifactorial gait difficulties. PROBLEMS: 1. Gait difficulties, possibly related to low B12 versus postconcussive syndrome. The patient has worked with physical therapy (PT). He is not deemed safe for discharge home where he lives independently in a cabin. Patient and family services (PFS) consultation has been placed. We will continue to monitor closely. Neurology's help is greatly appreciated. The patient is currently receiving Tylenol, gabapentin, and Vicodin, as well as Relafen. 2. Coronary artery disease. I would not discharge the patient on Relafen. Continue on Ranexa and nitroglycerin as needed. He is on an JALIL inhibitor, beta ronnie, aspirin. 3. History of migraines. The patient is on Topamax. 4. Seasonal allergies. The patient is on Singulair. 5. Chronic obstructive pulmonary disease (COPD). The patient is on Symbicort and Claritin. 6. Vitamin B12 deficiency. The patient is on B12 supplementation intramuscularly. He received his first dose yesterday. 7. Hypertension. The patient is on amlodipine, as well as his beta ronnie and JALIL inhibitor. 8. Vertigo. Continue with meclizine. Neurology's help is appreciated. 9. Deep vein thrombosis (DVT) prophylaxis. The patient is on Lovenox. 10. Gastroesophageal reflux disease (GERD). The patient is on omeprazole and Mylanta. 11. Chronic pain. As outlined.
[2016-09-29] MEDS: NORCO, ANEXSIA 5/325MG TABLET (HYDROcodone/ACETAMINOPHEN) PO PRN (15:19)
[2016-09-29 16:00] VITALS: BP 142/80
[2016-09-29 20:00] VITALS: BP 125/64
[2016-09-29] MEDS: MONTELUKAST 10 MG TAB PO SCH (21:37)
[2016-09-29] MEDS: ATORVASTATIN 20 MG TAB PO SCH (21:44)
--- NOTE | 2016-09-29 21:52 | ECGEPIP ---
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
[2016-09-30] VITALS: BP 118/80
[2016-09-30] MEDS: SLF 3 ML SYR IV SCH ×3 (06:00→21:40)
[2016-09-30 06:46] LABS: MEAN CORPUSCULAR HEMOGLOBIN 30.6 pg (27.0-33.0); MEAN CORPUSCULAR HGB CONC 31.6 g/dl (32.0-36.5); MEAN CORPUSCULAR VOLUME 96.8 fl (80.0-96.0); RED CELL DISTRIBUTION WIDTH 14.5 % (11.5-14.5); WHITE BLOOD COUNT 6.4 K/mm3 (4.0-10.0)
[2016-09-30 07:03] LABS: ANION GAP 7 MEQ/L (8-16); BLOOD UREA NITROGEN 24 MG/DL (7-18); CALCIUM LEVEL 8.8 MG/DL (8.5-10.1); CARBON DIOXIDE LEVEL 23 MEQ/L (21-32); CHLORIDE LEVEL 112 MEQ/L (98-107); CREATININE FOR GFR 0.86 MG/DL (0.70-1.30); GLOMERULAR FILTRATION RATE > 60.0 (>56); GLUCOSE, FASTING 87 MG/DL (70-105); POTASSIUM SERUM 3.9 MEQ/L (3.5-5.1); SODIUM LEVEL 142 MEQ/L (136-145)
[2016-09-30] MEDS: SYMBICORT 160/4.5MCG INHALER 6GM INH SCH ×2 (07:45→19:19)
[2016-09-30] MEDS: ALBUTEROL 90 MCG/ACT 8GM HFA INHALER INH PRN ×2 (07:45→19:19)
[2016-09-30 08:00] VITALS: BP 136/87
[2016-09-30] MEDS: guaiFENesin ER 600 MG TAB PO SCH ×2 (08:43→21:39)
[2016-09-30] MEDS: METOPROLOL SUCC *XL* 12.5MG PER 1/2 TAB (TopROL *XL*) PO SCH (08:43)
[2016-09-30] MEDS: LORATADINE 10 MG TAB PO SCH (08:43)
[2016-09-30] MEDS: TOPIRAMATE (TopAMAX) 25 MG TAB PO SCH ×2 (08:44→21:40)
[2016-09-30] MEDS: ASPIRIN 81 MG ENTERIC TAB PO SCH (08:44)
[2016-09-30] MEDS: OMEPRAZOLE 20 MG CAP PO SCH (08:44)
[2016-09-30] MEDS: amLODIPine 5 MG TAB PO SCH (08:44)
[2016-09-30] MEDS: LISINOPRIL 10 MG TAB PO SCH (08:44)
[2016-09-30] MEDS: GABAPENTIN 300 MG CAP PO SCH ×3 (08:45→21:39)
[2016-09-30] MEDS: CYANOCOBALAMIN 1,000 MCG/ML VIAL (J3420) IM SCH (08:45)
[2016-09-30] MEDS: SENOKOT S TAB PO SCH ×2 (08:45→21:00)
[2016-09-30] MEDS: PRASUGREL 10 MG TAB (EFFIENT) PO SCH (08:45)
[2016-09-30] MEDS: RANOLAZINE 500 MG ER TAB PO SCH ×2 (08:45→21:40)
[2016-09-30] MEDS: NABUMETONE 500 MG TAB PO SCH ×3 (08:45→21:40)
[2016-09-30] MEDS: MECLIZINE 12.5 MG TAB PO SCH ×3 (08:45→21:39)
[2016-09-30] MEDS: ENOXAPARIN 40 MG/0.4 ML SYRINGE (J1650) SC SCH (08:46)
[2016-09-30 12:00] VITALS: BP 131/86
--- NOTE | 2016-09-30 14:12 | IPNPDOC ---
Date Seen The patient was seen on 09/30/16. Progress Note SUBJECTIVE: Patient continues to complain of paresthesias in the lower extremities as well as the difficulties with his gait. He tells me does not feel he is able to go home he thinks to be better served by a rehabilitation. He lives in a cabin and one attempt to collect his own wood for heat. OBJECTIVE PHYSICAL EXAMINATION: VITAL SIGNS: Please see below. GENERAL: Disheveled middle-aged man sitting up in bed he does not appear to be in any distress HEENT: Healed facial scars cranial nerves II through XII grossly intact CARDIOVASCULAR: S1-S2 regular. RESPIRATORY: Clear to auscultation. ABDOMINAL: Benign EXTREMITIES: No clubbing cyanosis or edema NEUROLOGICAL: Unchanged LABORATORY DATA: Please see below. MICROBIOLOGY: Please see below. IMAGING: No new imaging DVT prophylaxis ordered?: [place] ASSESSMENT AND PLAN: This is a 56-year-old man with gait difficulties. PROBLEMS: 1. Gait difficulty:. Is appreciated to be related to low B12 levels versus a postobstructive causes syndrome at the time being the patient is working with physical therapy he is not safe for discharge to his previous living environment is on B12 injections. Thus is currently working a potential rehabilitation placement.. 2. Chronic pain: Patient is on Tylenol gabapentin Vicodin as well as Relafen. 3. Coronary artery disease: The patient is on aspirin and beta ronnie JALIL inhibitor Ranexa nitroglycerin as needed he is also on a statin and Effient he should likely not be discharged on the NSAID 4. Seasonal allergies patient is on singular and Claritin 5. COPD: The patient is on Symbicort he is at his baseline respiratory status 6. Vitamin B-12 deficiency: As outlined above 7. Hypertension: The patient is on amlodipine and beta ronnie and JALIL inhibitor as blood pressure is controlled. 8. Vertigo: The patient is on meclizine neurology's help is appreciated. 9. Gastroesophageal reflux disease: The patient is on omeprazole and Mylanta 10. Migraines: The patient is on Topamax DISPOSITION: Patient continues to work with physical therapy he may improve in the coming days he will likely require rehabilitation placement tinea to follow him closely. VS, I&O, 24H, Fishbone Vital Signs/I&O Vital Signs Date Time Temp Pulse Resp B/P Pulse Ox O2 Delivery O2 Flow Rate FiO2 09/30/16 12:00 98.3 88 18 131/86 96 Room Air I&O- Last 24 Hours up to 6 AM 09/30/16 06:00 Intake Total 2160 ml Output Total 1600 ml Balance 560 ml Laboratory Data 24H LABS Laboratory Tests 2 09/30/16 06:28: Anion Gap 7L, Blood Urea Nitrogen 24H, Creatinine 0.86, Sodium Level 142, Potassium Level 3.9, Chloride Level 112H, Carbon Dioxide Level 23, Calcium Level 8.8, Glomerular Filtration Rate > 60.0, Magnesium Level 2.0 CBC/BMP Laboratory Tests 09/30/16 06:28 Calcium Level 8.8, Red Blood Count 4.29 L, Mean Corpuscular Volume 96.8 H, Mean Corpuscular Hemoglobin 30.6, Mean Corpuscular Hemoglobin Concent 31.6 L, Red Cell Distribution Width 14.5 ALMITA CHIN MD Sep 30, 2016 14:12
[2016-09-30 16:00] VITALS: BP 123/73
[2016-09-30 20:00] VITALS: BP 139/74
[2016-09-30] MEDS: NORCO, ANEXSIA 5/325MG TABLET (HYDROcodone/ACETAMINOPHEN) PO PRN (21:39)
[2016-09-30] MEDS: ATORVASTATIN 20 MG TAB PO SCH (21:39)
[2016-09-30] MEDS: MONTELUKAST 10 MG TAB PO SCH (21:39)
[2016-09-30] MEDS: NITROGLYCERIN 0.4 MG SUBL TABLET SL PRN (21:46)
[2016-10-01] VITALS: BP 127/72
[2016-10-01] MEDS: SLF 3 ML SYR IV SCH (05:22)
[2016-10-01] MEDS: SYMBICORT 160/4.5MCG INHALER 6GM INH SCH (07:35)
[2016-10-01] MEDS: ALBUTEROL 90 MCG/ACT 8GM HFA INHALER INH PRN (07:35)
[2016-10-01 08:00] VITALS: BP 139/91
[2016-10-01 08:02] LABS: MEAN CORPUSCULAR HEMOGLOBIN 30.7 pg (27.0-33.0); MEAN CORPUSCULAR HGB CONC 31.7 g/dl (32.0-36.5); MEAN CORPUSCULAR VOLUME 96.9 fl (80.0-96.0); RED CELL DISTRIBUTION WIDTH 14.2 % (11.5-14.5); WHITE BLOOD COUNT 5.9 K/mm3 (4.0-10.0)
[2016-10-01 08:17] LABS: ANION GAP 6 MEQ/L (8-16); BLOOD UREA NITROGEN 22 MG/DL (7-18); CALCIUM LEVEL 8.6 MG/DL (8.5-10.1); CARBON DIOXIDE LEVEL 27 MEQ/L (21-32); CHLORIDE LEVEL 110 MEQ/L (98-107); CREATININE FOR GFR 0.92 MG/DL (0.70-1.30); GLOMERULAR FILTRATION RATE > 60.0 (>56); GLUCOSE, FASTING 86 MG/DL (70-105); MAGNESIUM LEVEL 1.9 MG/DL (1.8-2.4); POTASSIUM SERUM 4.1 MEQ/L (3.5-5.1); SODIUM LEVEL 143 MEQ/L (136-145)
[2016-10-01] MEDS ORDERED: AMLO5TAB2 PO (08:38)
[2016-10-01] MEDS ORDERED: LISI10TA4 PO (08:38)
[2016-10-01] MEDS ORDERED: MECL12.575 PO (08:38)
[2016-10-01] MEDS ORDERED: B121000T PO (08:41)
[2016-10-01] MEDS: SENOKOT S TAB PO SCH (09:00)
[2016-10-01] MEDS: guaiFENesin ER 600 MG TAB PO SCH (09:52)
[2016-10-01] MEDS: METOPROLOL SUCC *XL* 12.5MG PER 1/2 TAB (TopROL *XL*) PO SCH (09:52)
[2016-10-01 09:53] VITALS: BP 139/91
[2016-10-01] MEDS: NABUMETONE 500 MG TAB PO SCH (09:53)
[2016-10-01] MEDS: amLODIPine 5 MG TAB PO SCH (09:53)
[2016-10-01] MEDS: TOPIRAMATE (TopAMAX) 25 MG TAB PO SCH (09:53)
[2016-10-01] MEDS: PRASUGREL 10 MG TAB (EFFIENT) PO SCH (09:53)
[2016-10-01] MEDS: GABAPENTIN 300 MG CAP PO SCH (09:53)
[2016-10-01] MEDS: LISINOPRIL 10 MG TAB PO SCH (09:53)
[2016-10-01] MEDS: RANOLAZINE 500 MG ER TAB PO SCH (09:53)
[2016-10-01] MEDS: ENOXAPARIN 40 MG/0.4 ML SYRINGE (J1650) SC SCH (09:54)
[2016-10-01] MEDS: OMEPRAZOLE 20 MG CAP PO SCH (09:54)
[2016-10-01] MEDS: LORATADINE 10 MG TAB PO SCH (09:54)
[2016-10-01] MEDS: MECLIZINE 12.5 MG TAB PO SCH (09:54)
[2016-10-01] MEDS: ASPIRIN 81 MG ENTERIC TAB PO SCH (09:54)
[2016-10-01] MEDS: CYANOCOBALAMIN 1,000 MCG/ML VIAL (J3420) IM SCH (09:55)
--- NOTE | 2016-10-01 11:12 | DSES ---
DATE OF ADMISSION: 09/24/2016 DATE OF DISCHARGE: DISCHARGE DIAGNOSIS: Postconcussive syndrome. SECONDARY DIAGNOSES: 1. Near syncope. 2. Vitamin B12 deficiency. 3. Paresthesias. 4. Vertigo. 5. Chronic neck and back pain. 6. Hypertension. 7. Chronic obstructive pulmonary disease (COPD). 8. Gastroesophageal reflux disease (GERD). 9. Chronic headaches. 10. Cardiomyopathy. 11. Angina. 12. Coronary artery disease. 13. History of migraines. HOSPITAL COURSE: The patient is a 56-year-old man who was admitted on 09/24/2016. At that time, he was admitted for dizziness, lightheadedness, difficulty with gait and near fall. He had falls in the past at home. He was admitted to the hospitalist service. He was seen in consultation by neurology, Dr. Bustamante, who felt that the patient had gait instability secondary to postconcussive syndrome versus B12 deficiency. Also, possibly vertigo secondary to sinusitis. 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 OBJECTIVE: This morning, the patient reports that he feels well, but does not notice a significant change between yesterday and today in regard to the paresthesias, numbness in the legs. He has difficulty with his gait. Otherwise, per physical therapy, he has made quite a bit of improvement since the time of admission. He has no other complaints. VITAL SIGNS: Temperature 97.4, pulse 79, respiratory rate 18, blood pressure 139/91, oxygen saturation 97% on room air. GENERAL: He is a disheveled, middle aged man sitting up in bed. He is in no distress. HEENT: Cranial nerves II through XII are grossly intact. He has old scars on his face. He has moist mucous membranes. No elevation in central venous pressure. CARDIOVASCULAR EXAM: S1, S2 regular. RESPIRATORY EXAM: Clear. ABDOMINAL EXAM: Benign. EXTREMITIES: No clubbing, cyanosis or edema. NEUROLOGIC: Examination is unchanged. LABORATORY STUDIES: WBC 5.9, hemoglobin 12.4, platelet count 240. Chemistry panel: Sodium 143, potassium 4.1, chloride 110, bicarbonate 27, BUN 22, creatinine 0.9. Plasma copper level was within normal limits. B12 level was low. IMAGING: The patient did have a CT of the cervical spine, which revealed degenerative spondylosis, but otherwise was a negative study. No fracture was seen. The patient did have a CT scan of the head that revealed no intracranial pathology. He was unable to sit for the MRI secondary to his defibrillator device. Carotid duplex did not reveal any abnormal flow. ASSESSMENT AND PLAN: This is a 56-year-old man with gait difficulties. 1. Gait difficulty. Neurology's help has been appreciated. Likely related to low B12 levels versus postconcussive syndrome versus vertigo secondary to sinusitis. He has been working with physical therapy (PT) and not safe for discharge to home. He is being discharged to a rehabilitation facility. He is to continue with B12 supplementations and meclizine and followup with neurology. 2. Chronic pain. The patient is on Tylenol, gabapentin, Vicodin. 3. Coronary artery disease. The patient is on aspirin, beta ronnie, JALIL inhibitor, Ranexa, nitroglycerin, statin, and Effient. Symptoms are at baseline. 4. Seasonal allergies. The patient is on Singulair and Claritin. 5. Chronic obstructive pulmonary disease (COPD). The patient is on Symbicort. He is at his baseline respiratory status. 6. Vitamin B12 deficiency. The patient received intramuscular injections while in the hospital. He will continue oral supplementation on discharge. 7. Hypertension. The patient is on amlodipine, beta ronnie, and JALIL inhibitor. His blood pressure is well controlled. 8. Vertigo. The patient is on meclizine, possibly related to recent sinusitis. Neurology's help has been appreciated. 9. Gastroesophageal reflux disease (GERD). The patient is on omeprazole and Mylanta. 10. Migraines. The patient is on Topamax. DISPOSITION: The patient is being discharged to a rehabilitation facility. He is to followup with his primary care provider within 7 days and followup with neurology within 2 weeks. His activity is as tolerated. His diet is as prior to admission. He is to return to the emergency room if his symptoms worsen. DISCHARGE MEDICATIONS: - Norvasc 5 mg daily - vitamin B12 1000 mcg daily - Lisinopril 10 mg daily - meclizine 12.5 mg three times a day - hydrocodone/acetaminophen 5/325 mg one tablet every six hours as needed for pain - Ventolin HFA two puffs inhaled four times a day as needed for shortness of breath - aspirin 81 mg daily - atorvastatin 40 mg at night - Symbicort 160/4.5 mg two puffs inhaled twice a day - gabapentin 800 mg three times a day - isosorbide mononitrate extended release 60 mg daily - loratadine 10 mg daily - meloxicam 7.5 mg twice a day - metoprolol succinate 25 mg daily - Singulair 10 mg at night - omeprazole 20 mg daily - Effient 10 mg daily - Ranexa 1 gram twice a day - Topamax 50 mg twice a day Greater than 30 minutes was spent organizing disposition.
== END 2016-10-01 12:10 | DRG 54 ==
LOC: M ED 16:37 → M ED INP 18:59 → M PCU 20:53 → M PED 09-27 11:41
PROVIDERS: ADMIT Hospitalist; ATTEND Internal Medicine
DX: F07.81 Postconcussional syndrome (principal); E53.8 Deficiency of other specified B group vitamins; I10 Essential (primary) hypertension; R55 Syncope and collapse; J44.9 Chronic obstructive pulmonary disease, unspecified; R26.81 Unsteadiness on feet; I25.119 Atherosclerotic heart disease of native coronary artery with unspecified angina pectoris; I25.2 Old myocardial infarction; I25.5 Ischemic cardiomyopathy; K21.9 Gastro-esophageal reflux disease without esophagitis; M47.812 Spondylosis without myelopathy or radiculopathy, cervical region; R42 Dizziness and giddiness; F17.290 Nicotine dependence, other tobacco product, uncomplicated; J30.2 Other seasonal allergic rhinitis; R20.0 Anesthesia of skin; G43.709 Chronic migraine without aura, not intractable, without status migrainosus; R19.7 Diarrhea, unspecified; G44.229 Chronic tension-type headache, not intractable; M54.5 Low back pain; Z95.810 Presence of automatic (implantable) cardiac defibrillator; Z95.5 Presence of coronary angioplasty implant and graft; Z91.041 Radiographic dye allergy status; Z79.82 Long term (current) use of aspirin; Z79.891 Long term (current) use of opiate analgesic; Z79.899 Other long term (current) drug therapy

== ENCOUNTER → 2016-10-15 | Outpatient (CLI) | payer OTHER ==
[~2016-10-15] MED LIST changes: +AMLO5TAB2 PO; +B121000T PO; +BUPIVACAINE HCL 0.25% 10 ML VIAL As Ordered ONE; +BUPIVACAINE HCL 0.25% 30 ML VIAL As Ordered ONE; +GABA-282 PO; -GABA300C3 PO; +GABA800T PO; +HYDR-3713 PO; +ISOS60TA2 PO; +MECL12.575 PO; +MELO7.5T6 PO; +MONT10TA2 PO; +TRIAMCINOLONE ACETONIDE SUSP 40 MG/ML VIAL (J3301) As Ordered ONE
--- NOTE | 2016-10-18 23:52 | ECWPNPC ---
PATIENT NAME: ROME DODSON : 1960 GENDER: MALE VISIT DATE: 10/15/2016 DISCHARGE DATE: 10/15/16 1616 VISIT LOCKED DATE TIME: PHYSICIAN: ROBERT QUILES RESOURCE: ROBERT QUILES REASON FOR APPOINTMENT 1. TPI HISTORY OF PRESENT ILLNESS HISTORY OF PRESENT ILLNESS: PAIN THE PATIENT DESCRIBES THE PAIN... FALL RISK SCREENING: SCREENING :NO FALLS IN THE PAST YEAR CURRENT MEDICATIONS TAKING ASPIRIN ADULT LOW STRENGTH 81 MG TABLETS 1 TABLET ORALLY ONCE A DAY, NOTES: 10/15/16 1000 TAKING ATORVASTATIN CALCIUM 40 MG TABLET 1 TABLET ORALLY QHS, NOTES: 10/14/160 TAKING SYMBICORT 160-4.5 MCG/ACT AEROSOL 2 PUFFS INHALATION TWICE A DAY, NOTES: 10/15/16 1000 TAKING GABAPENTIN 800 MG TABLET 1 TABLET ORALLY TID, NOTES: 10/15/16 1000 TAKING ISOSORBIDE DINITRATE 60 MG TABLET 1 TABLET ORALLY DAILY, NOTES: 10/15/16 1000 TAKING LISINOPRIL 10 MG TABLET 1 TABLET ORALLY ONCE A DAY, NOTES: 10/15/16 1000 TAKING LORATADINE 10 MG TABLET 1 TABLET ORALLY ONCE A DAY, NOTES: 10/15/16 1000 TAKING METOPROLOL SUCCINATE ER 25 MG TABLET EXTENDED RELEASE 24 HOUR 1 TABLET ORALLY ONCE A DAY, NOTES: 10/15/16 1000 TAKING NITROGLYCERIN 0.4 MG PATCH 24 HOUR 1 PATCH TO SKIN REMOVE AFTER 12 HOURS DAILY, NOTES: 10/15/16 1000 TAKING EFFIENT 10 MG TABLET ORALLY DAILY, NOTES: 10/15/16 1000 TAKING RANEXA 1000 MG TABLET EXTENDED RELEASE 12 HOUR 1 TABLET ORALLY TWICE A DAY, NOTES: 10/15/16 1000 TAKING OMEPRAZOLE 20 MG CAPSULE DELAYED RELEASE 1 CAPSULE ORALLY QD, NOTES: 10/15/16 1000 TAKING TOPIRAMATE 50 MG TABLET 1 TABLET ORALLY TWICE A DAY, NOTES: 10/15/16 1000 TAKING VENTOLIN HFA 200 MG AEROSOL SOLUTION 2 PUFFS NEEDED INHALATION EVERY 4 HRS, NOTES: > 1 WEEK TAKING METHOCARBAMOL 750 MG TABLET 1 TABLET ORALLY BID, NOTES: 07/24/16 1000 TAKING IBUPROFEN 600 MG TABLET 1 TABLET ORALLY BID PRN PAIN. TAKE WITH FOOD, NOTES: UNKNOWN TAKING PREDNISONE 10 MG (21) TABLET THERAPY PACK ORALLY , NOTES: > 1 MONTH AGO TAKING TESSALON PERLES 100 MG CAPSULE 1 CAPSULE NEEDED ORALLY THREE TIMES A DAY, NOTES: > 1 MONTH TAKING NORCO 5-325 MG TABLET 1 TABLET ORALLY 8- 12 HRS PRN PAIN MDD=3, NOTES: 10/14/16 1700 MEDICATION LIST REVIEWED AND RECONCILED WITH THE PATIENT PAST MEDICAL HISTORY HYPERTENSION CARDIOVASCULAR DISEASE VT X2 ALLERGIES IV DYE: ITCHING AND SWEATING: ALLERGY SOCIAL HISTORY GENERAL: PAIN CLINIC PFS, CLERGY, PUBLIC HEALTH REFERRALS CLERGY REFERRAL NEEDED?NO WAS THE PROVIDER NOTIFIED OF ANY PERTINENT INFO?NO PFS REFERRAL NEEDED?NO PUBLIC HEALTH REFERRAL NEEDED?NO PATIENT: ____. REVIEW OF SYSTEMS CONSTITUTIONAL: ANY CHANGE IN YOUR MEDICAL CONDITION? YES PT REPORTS HE HAS BEEN A PATIENT IN THE [facility], A HEALTHCARE FACILITY IN [place]. HE WAS HAVING DIZZY SPELLS, WAS ADMITTED TO [facility] AN INPATIENT, DX POSTCONCUSSIVE SYNDROME VERSUS VERTIGO SECONDARY TO SINUSITIS, VERSUS LOW B12 LEVELS. DR QUILES NOTIFIED, OK TO PROCEED. . CHILLS NO . FEVER NO . INFECTION: DO YOU HAVE NEW INFECTIONS? NO . DO YOU HAVE HISTORY OF MRSA? NO . MUSCULOSKELETAL: ANY NEW PATTERNS OF PAIN OR NUMBNESS? NO . GASTROENTEROLOGY: ANY NEW CHANGE IN BOWEL CONTROL? NO . GENITOURINARY: ANY NEW CHANGE IN BLADDER CONTROL? NO . IS THERE A CHANCE YOU COULD BE ? NO . HEMATOLOGY/LYMPH: DO YOU TAKE ANY BLOOD THINNERS? (FOR EXAMPLE- COUMADIN, PLAVIX, AGGRENOX, PLATEL, PRADAXA, OR XARELTO) YES EFFIENT DR QUILES NOTIFIED, OK TO PROCEED . WHEN WAS YOUR LAST DOSE? DATE: TIME: 10/15/16 @ 1000 . NEUROLOGY: HAVE YOU FALLEN IN THE PAST 6 MONTHS? YES . ANY NEW EXTREMITY NUMBNESS OR WEAKNESS? NO . CARDIOLOGY: DO YOU HAVE A PACEMAKER OR DEFIBRILLATOR? YES . RESPIRATORY: HAVE YOU BEEN SICK IN THE PAST WEEK? NO . FEVER NO . FLU LIKE SYMPTOMS? NO . COUGH NO . INTEGUMENTARY: DO YOU HAVE ANY RASHES OR OPEN SORES? NO . ALLERGIC/IMMUNO: ARE YOU ALLERGIC TO SHELLFISH OR IV DYE? YES . ANY NEW ALLERGIES? NO . PSYCHIATRIC: DO YOU HAVE THOUGHTS OF HURTING YOURSELF OR SOMEONE ELSE? NO . ARE YOU ABUSED, NEGLECTED, OR IN AN UNSAFE ENVIRONMENT? NO . ENDOCRINOLOGY: ARE YOU DIABETIC? NO . OTHER: DO YOU NEED ANY PRESCRIPTIONS? NO . IF YES, PLEASE LIST: ____ . ANY NEW PROBLEMS WITH YOUR MEDICATIONS? NO . WHEN DID YOU LAST EAT? ____10/14/16 2400 . WHEN DID YOU LAST DRINK? ____10/15/16 0900 . WHAT DID YOU LAST DRINK? ____WATER . NAME OF PERSON DRIVING YOU HOME? 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 DO YOU HAVE ANY OTHER QUESTIONS OR CONCERNS NO . REVIEWED BY: PROVIDER: . VITAL SIGNS WT 177.2 LBS, HT 72 IN, BMI 24.03 INDEX, BP 109/66 MM HG, HR 86 /MIN, RR 18 /MIN, TEMP 97.0 F, OXYGEN SAT % 98, NA INITIALS HS, REVIEWED BY: RACIEL`. ASSESSMENTS MYALGIA - M79.1 (PRIMARY) PROCEDURES PN TRIGGER POINT INJECTION WITH STEROIDS PRE PROCEDURE DIAGNOSIS 1. MYALGIA 2. PAIN AT BILATERAL LOWER BACK AREA POST PROCEDURE DIAGNOSIS 1. MYALGIA 2. PAIN AT BILATERAL LOWER BACK AREA PROCEDURE TRIGGER POINT INJECTION AT BILATERAL LOWER BACK AREA SURGEON DR. ROBERT QUILES [employer] EMPLOYEE NONE ANESTHESIA LOCAL PRE PROCEDURE NOTE THE PATIENT HAS A HISTORY OF CHRONIC PAIN AT THE RIGHT AND LEFT LOWER BACK AREA. I EVALUATE THE PATIENT AND REVIEWED THE CHART. THERE IS EVIDENCE OF BANDS OF TISSUE WITH RESTRICTION OF MOVEMENT AND PRESENCE OF TRIGGER POINT AT THE AFFECTED AREA. I WENT OVER THE RISKS, ALTERNATIVES, AND BENEFITS ASSOCIATED WITH THIS PROCEDURE. THE PATIENT WOULD LIKE TO PROCEED AND GIVE CONSENT TO PERFORMED THE PROCEDURE. THE PATIENT DENIES UNEXPLAINABLE WEIGHT LOSS, FEVER, CHILLS, OR NEW CHANGES IN URINARY OR BOWEL CONTROL DESCRIPTION OF PROCEDURE THE PATIENT WAS BROUGHT TO THE PROCEDURE ROOM AND PLACED IN THE SITTING POSITION. THE AREA WAS CLEANED WITH ALCOHOL. THE PROCEDURE WAS DONE USING ASEPTIC STERILE TECHNIQUE. I CHECKED LATERALITY AND THE LEVEL WHERE THE PROCEDURE WAS GOING TO BE PERFORMED WITH THE PATIENT AND THE SUPPORTING STAFF AT THE MOMENT OF THE TIME OUT IN THE PROCEDURE ROOM. USING A 25-GAUGE NEEDLE, TRIGGER POINTS WERE INJECTED AT THE RIGHT AND LEFT LOWER BACK AREA WITH A TOTAL OF 40 ML OF BUPIVACAINE 0.25% AND KENALOG 40 MG. THERE WAS NO EVIDENCE OF BLOOD, PARESTHESIA OR CEREBROSPINAL FLUID DURING THE PROCEDURE. THE PATIENT WAS SENT TO THE RECOVERY ROOM. THE PATIENT WAS MOVING THE EXTREMITIES AND DOING WELL. THERE WAS NO COMPLICATION DURING THE PROCEDURE POST PROCEDURE NOTE THE PATIENT WILL BE SEEN IN A FOLLOW UP IN THE NEXT FEW WEEKS. INSTRUCTIONS WERE GIVEN, QUESTIONS WERE ANSWERED, AND THE PATIENT EXPRESSED UNDERSTANDING AND AGREES WITH THE PLAN. I, JASMINE HAM, DOCUMENTED THE ABOVE INFORMATION ACTING A SCRIBE FOR DR. QUILES. I HAVE REVIEWED THE ABOVE DOCUMENT, WRITTEN BY JASMINE HAM SCRIBMaria E AND I VERIFY THAT IT IS ACCURATE. PROCEDURE CODES 11198 INJ TRIGGER POINT / MUSC DISPOSITION & COMMUNICATION FOLLOW UP 3 WEEKS ELECTRONICALLY SIGNED BY ROBERT QUILES MD ON 10/18/2016 AT 08:45 PM EDT DISCLAIMER : THIS IS A VISIT SUMMARY EXTRACTED FROM THE [employer] CHART. IT IS NOT A COPY OF THE [employer] PROGRESS NOTE. LARON
== END ==
LOC: M PAIN 14:20
PROVIDERS: ATTEND Anesthesiology
DX: G89.29 Other chronic pain (principal); M79.1 Myalgia; M54.5 Low back pain; I10 Essential (primary) hypertension; I25.2 Old myocardial infarction; I25.10 Atherosclerotic heart disease of native coronary artery without angina pectoris; Z79.82 Long term (current) use of aspirin; Z79.52 Long term (current) use of systemic steroids; Z79.1 Long term (current) use of non-steroidal anti-inflammatories (NSAID); Z79.899 Other long term (current) drug therapy; Z79.891 Long term (current) use of opiate analgesic; Z91.041 Radiographic dye allergy status; Z79.02 Long term (current) use of antithrombotics/antiplatelets
CPT/HCPCS: 20552; J3301

== ENCOUNTER → 2016-11-03 | Outpatient (CLI) | payer OTHER ==
[~2016-11-03] MED LIST changes: -BUPIVACAINE HCL 0.25% 10 ML VIAL As Ordered ONE; -BUPIVACAINE HCL 0.25% 30 ML VIAL As Ordered ONE; -TRIAMCINOLONE ACETONIDE SUSP 40 MG/ML VIAL (J3301) As Ordered ONE
--- NOTE | 2016-11-20 23:44 | ECWPNPC ---
PATIENT NAME: ROME DODSON : 1960 GENDER: MALE VISIT DATE: 11/03/2016 DISCHARGE DATE: 11/03/16 1433 VISIT LOCKED DATE TIME: PHYSICIAN: MANISHA BRENNER RESOURCE: MANISHA BRENNER REASON FOR APPOINTMENT 1. POST TPI F/UP HISTORY OF PRESENT ILLNESS HISTORY OF PRESENT ILLNESS: PAIN THE PATIENT DESCRIBES THE PAIN... FALL RISK SCREENING: SCREENING :NO FALLS IN THE PAST YEAR TODAY'S VISIT: NOTES: STATES HAD STROKE AND WAS IN HOSPITAL AND REHAB BETWEEN 09/14 AND 10/15/16. HAS BEEN USING A WALKER FOR BALANCE. NOTES HE IS WEAK ON LEFT. NO RECENT FALLS SINCE TPI DONE. NO CHANGES TO MEDS OR EFFIENT - (BLOOD THINNER). IS FOLLOWING WITH PCP FOR STROKE SX. IS CONTINUING REHAB AT [facility] ON WEDNESDAY. NOTES VISION IS BLURRY BUT SPEACH IS OK. REPORTS PAIN LEVEL 10/10 PRIOR TO INJECTION, THEN DECREASED TO 6/10 AFTER AND HAD IMPROVEMENT.. CURRENT MEDICATIONS TAKING ASPIRIN ADULT LOW STRENGTH 81 MG TABLETS 1 TABLET ORALLY ONCE A DAY TAKING ATORVASTATIN CALCIUM 40 MG TABLET 1 TABLET ORALLY QHS TAKING SYMBICORT 160-4.5 MCG/ACT AEROSOL 2 PUFFS INHALATION TWICE A DAY TAKING GABAPENTIN 600 MG TABLET 1 TABLET ORALLY TID TAKING ISOSORBIDE DINITRATE 60 MG TABLET 1 TABLET ORALLY DAILY TAKING LISINOPRIL 10 MG TABLET 1 TABLET ORALLY ONCE A DAY TAKING LORATADINE 10 MG TABLET 1 TABLET ORALLY ONCE A DAY TAKING METOPROLOL SUCCINATE ER 25 MG TABLET EXTENDED RELEASE 24 HOUR 1 TABLET ORALLY ONCE A DAY TAKING NITROGLYCERIN 0.4 MG PATCH 24 HOUR 1 PATCH TO SKIN REMOVE AFTER 12 HOURS DAILY TAKING EFFIENT 10 MG TABLET ORALLY DAILY TAKING RANEXA 1000 MG TABLET EXTENDED RELEASE 12 HOUR 1 TABLET ORALLY TWICE A DAY TAKING OMEPRAZOLE 20 MG CAPSULE DELAYED RELEASE 1 CAPSULE ORALLY QD TAKING TOPIRAMATE 50 MG TABLET 1 TABLET ORALLY TWICE A DAY TAKING VENTOLIN HFA 200 MG AEROSOL SOLUTION 2 PUFFS NEEDED INHALATION EVERY 4 HRS TAKING METHOCARBAMOL 750 MG TABLET 1 TABLET ORALLY BID TAKING IBUPROFEN 600 MG TABLET 1 TABLET ORALLY BID PRN PAIN. TAKE WITH FOOD TAKING NORCO 5-325 MG TABLET 1 TABLET ORALLY 8- 12 HRS PRN PAIN MDD=3 NOT-TAKING PREDNISONE 10 MG (21) TABLET THERAPY PACK ORALLY NOT-TAKING TESSALON PERLES 100 MG CAPSULE 1 CAPSULE NEEDED ORALLY THREE TIMES A DAY MEDICATION LIST REVIEWED AND RECONCILED WITH THE PATIENT PAST MEDICAL HISTORY HYPERTENSION CARDIOVASCULAR DISEASE MA X2 ALLERGIES IV DYE: ITCHING AND SWEATING: ALLERGY SOCIAL HISTORY GENERAL: PAIN CLINIC PFS, CLERGY, PUBLIC HEALTH REFERRALS CLERGY REFERRAL NEEDED?NO WAS THE PROVIDER NOTIFIED OF ANY PERTINENT INFO?NO PFS REFERRAL NEEDED?NO PUBLIC HEALTH REFERRAL NEEDED?NO PATIENT: ____. REVIEW OF SYSTEMS CONSTITUTIONAL: ANY CHANGE IN YOUR MEDICAL CONDITION? NO . CHILLS NO . FEVER NO . INFECTION: DO YOU HAVE NEW INFECTIONS? NO . DO YOU HAVE HISTORY OF MRSA? NO . MUSCULOSKELETAL: ANY NEW PATTERNS OF PAIN OR NUMBNESS? NO . GASTROENTEROLOGY: GENERAL DENIES HEMATACHEZIA . ANY NEW CHANGE IN BOWEL CONTROL? NO . GENITOURINARY: ANY NEW CHANGE IN BLADDER CONTROL? NO . IS THERE A CHANCE YOU COULD BE ? NO . HEMATOLOGY/LYMPH: DO YOU TAKE ANY BLOOD THINNERS? (FOR EXAMPLE- COUMADIN, PLAVIX, AGGRENOX, PLATEL, PRADAXA, OR XARELTO) YES, EFFIENT . WHEN WAS YOUR LAST DOSE? DATE:11/03/16 TIME: 1000 . NEUROLOGY: HAVE YOU FALLEN IN THE PAST 6 MONTHS? NO . ANY NEW EXTREMITY NUMBNESS OR WEAKNESS? NO . CARDIOLOGY: DO YOU HAVE A PACEMAKER OR DEFIBRILLATOR? YES DENIES RECENT CHEST PAIN . RESPIRATORY: HAVE YOU BEEN SICK IN THE PAST WEEK? NO . FEVER NO . FLU LIKE SYMPTOMS? NO . COUGH YES - DRY NON PRODUCTIVE . INTEGUMENTARY: DO YOU HAVE ANY RASHES OR OPEN SORES? ITCHING FROM EFFIENT, MULTIPLE BRUISES FROM EFFIENT . ALLERGIC/IMMUNO: ARE YOU ALLERGIC TO SHELLFISH OR IV DYE? YES, IV DYE . ANY NEW ALLERGIES? NO . PSYCHIATRIC: DO YOU HAVE THOUGHTS OF HURTING YOURSELF OR SOMEONE ELSE? NO . ARE YOU ABUSED, NEGLECTED, OR IN AN UNSAFE ENVIRONMENT? NO . ENDOCRINOLOGY: ARE YOU DIABETIC? NO . OTHER: DO YOU NEED ANY PRESCRIPTIONS? YES . IF YES, PLEASE LIST: NORCO . ANY NEW PROBLEMS WITH YOUR MEDICATIONS? NO . WHEN DID YOU LAST EAT? ____ . WHEN DID YOU LAST DRINK? ____ . WHAT DID YOU LAST DRINK? ____ . NAME OF PERSON DRIVING YOU HOME? ____ . DO YOU HAVE ANY OTHER QUESTIONS OR CONCERNS NO . REVIEWED BY: PROVIDER: MANISHA BROWN . VITAL SIGNS WT 178.0 LBS, HT 72 IN, BMI 24.14 INDEX, BP 139/85 MM HG, HR 87 /MIN, RR 18 /MIN, TEMP 97.4 F, OXYGEN SAT % 93%, NA INITIALS SC 13:50, REVIEWED BY: CS. EXAMINATION GENERAL EXAMINATION: GENERAL APPEARANCE:SKIN WARM, DRY, COLOR PINK. PSYCHALERT , ORIENTED X 3 , APPROPRIATE MOOD AND AFFECT . LUNGS:CLEAR TO AUSCULTATION BILATERALLY. HEART:HEART RATE REGULAR. MUSCULOSKELETAL:TRIGGER POINTS:, ELICITED WITH PALPATION OVER LUMBAR PARAVERTEBRAL MUSCLES AND INTO THE SACRUM. RESTRICTION OF ROM IN THIS AREA. POSTURE STOOPED. SLOW TO RISE TO STANDING POSITION.. GAIT NONANTALGIC. NO ECCYMOTIC AREAS ACROSS SACRUM. ASSESSMENTS MYALGIA - M79.1 (PRIMARY) CHRONIC PRESCRIPTION OPIATE USE - Z79.891 TREATMENT MYALGIA REFILL NORCO TABLET, 5-325 MG, 1 TABLET, ORALLY, 8- 12 HRS PRN PAIN MDD=2, 30 DAY(S), 60, REFILLS 0 TRIGGER POINT 3 + MANISHA NORRIS 11/03/2016 2:23:31 PM > LOW BACK - ON EFFIENT NOTES: ON EFFIENT - NOT TO STOP. PREVENTIVE MEDICINE PAIN CLINIC TEACHING: PROCEDURE TEACHING PRE TRIGGER POINT INJECTIONS INSTRUCTIONS REVIEWED WITH PT. VERBALIZED UNDERSTANDING. WRITTEN INSTRUCTIONS OFFERED AND DECLINED.. PROCEDURE CODES FA211 ESTABILISHED PATIENT [facility] CHARGE DISPOSITION & COMMUNICATION FOLLOW UP AFTER INJECTION (REASON: CHECK AUTH FOR TPI - ON EFFIENT - DO MID TO LATE NOVEMBER) ELECTRONICALLY SIGNED BY JUAN MIGUEL CLEMENT ON 11/20/2016 AT 03:11 PM EDT DISCLAIMER : THIS IS A VISIT SUMMARY EXTRACTED FROM THE [employer] CHART. IT IS NOT A COPY OF THE [employer] PROGRESS NOTE. LARON
== END ==
LOC: M PAIN 13:40
PROVIDERS: ATTEND Nurse Practitioner Family
DX: G89.29 Other chronic pain (principal); M79.1 Myalgia; Z79.891 Long term (current) use of opiate analgesic; I10 Essential (primary) hypertension; I25.2 Old myocardial infarction; I69.354 Hemiplegia and hemiparesis following cerebral infarction affecting left non-dominant side; Z79.01 Long term (current) use of anticoagulants; Z79.899 Other long term (current) drug therapy; Z91.041 Radiographic dye allergy status

== ENCOUNTER → 2016-11-24 | Outpatient (CLI) | payer OTHER ==
[~2016-11-24] MED LIST changes: +BUPIVACAINE HCL 0.25% 10 ML VIAL As Ordered ONE; +BUPIVACAINE HCL 0.25% 30 ML VIAL As Ordered ONE; +TRIAMCINOLONE ACETONIDE SUSP 40 MG/ML VIAL (J3301) As Ordered ONE
--- NOTE | 2016-12-04 00:10 | ECWPNPC ---
PATIENT NAME: ROME DODSON : 1960 GENDER: MALE VISIT DATE: 11/24/2016 DISCHARGE DATE: 11/24/16 1458 VISIT LOCKED DATE TIME: PHYSICIAN: ROBERT QUILES RESOURCE: ROBERT QUILES REASON FOR APPOINTMENT 1. TPI-LOW BACK HISTORY OF PRESENT ILLNESS HISTORY OF PRESENT ILLNESS: PAIN THE PATIENT DESCRIBES THE PAIN... FALL RISK SCREENING: SCREENING :NO FALLS IN THE PAST YEAR CURRENT MEDICATIONS TAKING ASPIRIN ADULT LOW STRENGTH 81 MG TABLETS 1 TABLET ORALLY ONCE A DAY, NOTES: 1000 TAKING ATORVASTATIN CALCIUM 40 MG TABLET 1 TABLET ORALLY QHS, NOTES: 1000 TAKING SYMBICORT 160-4.5 MCG/ACT AEROSOL 2 PUFFS INHALATION TWICE A DAY, NOTES: 1000 TAKING GABAPENTIN 600 MG TABLET 1 TABLET ORALLY TID, NOTES: 1000 TAKING ISOSORBIDE DINITRATE 60 MG TABLET 1 TABLET ORALLY DAILY, NOTES: 1000 TAKING LISINOPRIL 10 MG TABLET 1 TABLET ORALLY ONCE A DAY, NOTES: 1000 TAKING LORATADINE 10 MG TABLET 1 TABLET ORALLY ONCE A DAY, NOTES: 1000 TAKING METOPROLOL SUCCINATE ER 25 MG TABLET EXTENDED RELEASE 24 HOUR 1 TABLET ORALLY ONCE A DAY, NOTES: 1000 TAKING NITROGLYCERIN 0.4 MG PATCH 24 HOUR 1 PATCH TO SKIN REMOVE AFTER 12 HOURS DAILY, NOTES: OFF TAKING EFFIENT 10 MG TABLET ORALLY DAILY, NOTES: 1000 TAKING RANEXA 1000 MG TABLET EXTENDED RELEASE 12 HOUR 1 TABLET ORALLY TWICE A DAY, NOTES: 1000 TAKING OMEPRAZOLE 20 MG CAPSULE DELAYED RELEASE 1 CAPSULE ORALLY QD, NOTES: 1000 TAKING TOPIRAMATE 50 MG TABLET 1 TABLET ORALLY TWICE A DAY, NOTES: 1000 TAKING VENTOLIN HFA 200 MG AEROSOL SOLUTION 2 PUFFS NEEDED INHALATION EVERY 4 HRS, NOTES: 1000 TAKING METHOCARBAMOL 750 MG TABLET 1 TABLET ORALLY BID, NOTES: 1000 TAKING NORCO 5-325 MG TABLET 1 TABLET ORALLY 8- 12 HRS PRN PAIN MDD=2, NOTES: LAST WEDNESDAY NOT-TAKING IBUPROFEN 600 MG TABLET 1 TABLET ORALLY BID PRN PAIN. TAKE WITH FOOD NOT-TAKING PREDNISONE 10 MG (21) TABLET THERAPY PACK ORALLY NOT-TAKING TESSALON PERLES 100 MG CAPSULE 1 CAPSULE NEEDED ORALLY THREE TIMES A DAY MEDICATION LIST REVIEWED AND RECONCILED WITH THE PATIENT PAST MEDICAL HISTORY HYPERTENSION CARDIOVASCULAR DISEASE [place] X2 ALLERGIES IV DYE: ITCHING AND SWEATING: ALLERGY REVIEW OF SYSTEMS CONSTITUTIONAL: ANY CHANGE IN YOUR MEDICAL CONDITION? YES . CHILLS NO . FEVER NO . INFECTION: DO YOU HAVE NEW INFECTIONS? NO . DO YOU HAVE HISTORY OF MRSA? NO . MUSCULOSKELETAL: ANY NEW PATTERNS OF PAIN OR NUMBNESS? YES, LEGS NOW TOO . GASTROENTEROLOGY: ANY NEW CHANGE IN BOWEL CONTROL? NO . GENITOURINARY: ANY NEW CHANGE IN BLADDER CONTROL? NO . IS THERE A CHANCE YOU COULD BE ? NO . HEMATOLOGY/LYMPH: DO YOU TAKE ANY BLOOD THINNERS? (FOR EXAMPLE- COUMADIN, PLAVIX, AGGRENOX, PLATEL, PRADAXA, OR XARELTO) NO . WHEN WAS YOUR LAST DOSE? DATE: TIME: . NEUROLOGY: HAVE YOU FALLEN IN THE PAST 6 MONTHS? YES, FELL AND HIT HEAD JUL 15[facility]/ STILL ON THERAPY/ REHAB . ANY NEW EXTREMITY NUMBNESS OR WEAKNESS? NO . CARDIOLOGY: DO YOU HAVE A PACEMAKER OR DEFIBRILLATOR? YES . RESPIRATORY: HAVE YOU BEEN SICK IN THE PAST WEEK? NO . FEVER NO . FLU LIKE SYMPTOMS? NO . COUGH NO . INTEGUMENTARY: DO YOU HAVE ANY RASHES OR OPEN SORES? NO . ALLERGIC/IMMUNO: ARE YOU ALLERGIC TO SHELLFISH OR IV DYE? YES, IV DYE . ANY NEW ALLERGIES? NO . PSYCHIATRIC: DO YOU HAVE THOUGHTS OF HURTING YOURSELF OR SOMEONE ELSE? NO . ARE YOU ABUSED, NEGLECTED, OR IN AN UNSAFE ENVIRONMENT? NO . ENDOCRINOLOGY: ARE YOU DIABETIC? NO . OTHER: DO YOU NEED ANY PRESCRIPTIONS? YES . IF YES, PLEASE LIST: ____ . ANY NEW PROBLEMS WITH YOUR MEDICATIONS? NO . WHEN DID YOU LAST EAT? LAST NIGHT . WHEN DID YOU LAST DRINK? TODAY AM . WHAT DID YOU LAST DRINK? COFFEE . NAME OF PERSON DRIVING YOU HOME? SHAZIA . DO YOU HAVE ANY OTHER QUESTIONS OR CONCERNS NO . REVIEWED BY: PROVIDER: . VITAL SIGNS WT 177.2 LBS, HT 72 IN, BMI 24.03 INDEX, BP 139/97 MM HG, HR 95 /MIN, RR 18 /MIN, TEMP 98.6 F, OXYGEN SAT % 96%, NA INITIALS SC 14:02, REVIEWED BY: NL. ASSESSMENTS MYALGIA - M79.1 (PRIMARY) PROCEDURES PN TRIGGER POINT INJECTION WITH STEROIDS PRE PROCEDURE DIAGNOSIS 1. MYALGIA 2. PAIN AT BILATERAL LOW BACK AREA POST PROCEDURE DIAGNOSIS 1. MYALGIA 2. PAIN AT BILATERAL LOW BACK AREA PROCEDURE TRIGGER POINT INJECTION AT BILATERAL LOW BACK AREA SURGEON DR. 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 I EVALUATE THE PATIENT AND REVIEWED THE CHART. THERE IS EVIDENCE OF BANDS OF TISSUE WITH RESTRICTION OF MOVEMENT AND PRESENCE OF TRIGGER POINT AT THE AFFECTED AREA. I WENT OVER THE RISKS, ALTERNATIVES, AND BENEFITS ASSOCIATED WITH THIS PROCEDURE. THE PATIENT WOULD LIKE TO PROCEED AND GIVE CONSENT TO PERFORMED THE PROCEDURE. THE PATIENT DENIES UNEXPLAINABLE WEIGHT LOSS, FEVER, CHILLS, OR NEW CHANGES IN URINARY OR BOWEL CONTROL DESCRIPTION OF PROCEDURE THE PATIENT WAS BROUGHT TO THE PROCEDURE ROOM AND PLACED IN THE SITTING POSITION. THE AREA WAS CLEANED WITH ALCOHOL. THE PROCEDURE WAS DONE USING ASEPTIC STERILE TECHNIQUE. I CHECKED LATERALITY AND THE LEVEL WHERE THE PROCEDURE WAS GOING TO BE PERFORMED WITH THE PATIENT AND THE SUPPORTING STAFF AT THE MOMENT OF THE TIME OUT IN THE PROCEDURE ROOM. USING A 25-GAUGE NEEDLE, TRIGGER POINTS WERE INJECTED AT THE RIGHT AND LEFT LOW BACK AREA WITH A TOTAL OF 40 ML OF BUPIVACAINE 0.25% AND KENALOG 40 MG. THERE WAS NO EVIDENCE OF BLOOD, PARESTHESIA OR CEREBROSPINAL FLUID DURING THE PROCEDURE. THE PATIENT WAS SENT TO THE RECOVERY ROOM. THE PATIENT WAS MOVING THE EXTREMITIES AND DOING WELL. THERE WAS NO COMPLICATION DURING THE PROCEDURE POST PROCEDURE NOTE THE PATIENT WILL BE SEEN IN A FOLLOW UP IN THE NEXT FEW WEEKS. INSTRUCTIONS WERE GIVEN, QUESTIONS WERE ANSWERED, AND THE PATIENT EXPRESSED UNDERSTANDING AND AGREES WITH THE PLAN. I, JASMINE HAM, DOCUMENTED THE ABOVE INFORMATION ACTING A SCRIBE FOR DR. QUILES. I HAVE REVIEWED THE ABOVE DOCUMENT, WRITTEN BY JASMINE NOWAK AND I VERIFY THAT IT IS ACCURATE PROCEDURE CODES 25655 INJ TRIGGER POINT 07/13 [facility] [place] [facility] [place]UN[place] ELECTRONICALLY SIGNED BY ROBERT QUILES MD ON 12/03/2016 AT 08:02 PM EDT DISCLAIMER : THIS IS A VISIT SUMMARY EXTRACTED FROM THE [employer] CHART. IT IS NOT A COPY OF THE [employer] PROGRESS NOTE. LARON
== END ==
LOC: M PAIN 14:00
PROVIDERS: ATTEND Anesthesiology
DX: G89.29 Other chronic pain (principal); M54.5 Low back pain; M79.1 Myalgia; I10 Essential (primary) hypertension; I25.2 Old myocardial infarction; Z79.82 Long term (current) use of aspirin; Z79.891 Long term (current) use of opiate analgesic; Z79.899 Other long term (current) drug therapy; Z88.8 Allergy status to other drugs, medicaments and biological substances
CPT/HCPCS: 20552; J3301

== ENCOUNTER → 2016-12-22 | Outpatient (CLI) | payer OTHER ==
[~2016-12-22] MED LIST changes: -ATOR40TA PO; +ATOR40TA75 PO; -BUPIVACAINE HCL 0.25% 10 ML VIAL As Ordered ONE; -BUPIVACAINE HCL 0.25% 30 ML VIAL As Ordered ONE; +IBUP1TAB7 PO; -IBUP800T23 PO; -MELO7.5T6 PO; +MELO7.5T7 PO; -TOPA50TA7 PO; +TOPA50TA8 PO; -TRIAMCINOLONE ACETONIDE SUSP 40 MG/ML VIAL (J3301) As Ordered ONE
--- NOTE | 2017-01-09 00:26 | ECWPNPC ---
PATIENT NAME: ROME DODSON : 1960 GENDER: MALE VISIT DATE: 12/22/2016 DISCHARGE DATE: 12/22/16 1536 VISIT LOCKED DATE TIME: PHYSICIAN: MANISHA BRENNER RESOURCE: MANISHA BRENNER REASON FOR APPOINTMENT 1. POST TPI HISTORY OF PRESENT ILLNESS HISTORY OF PRESENT ILLNESS: PAIN THE PATIENT DESCRIBES THE PAIN... FALL RISK SCREENING: SCREENING :NO FALLS IN THE PAST YEAR TODAY'S VISIT: NOTES: IS ATTENDING PHYSICAL THERAPY. IS NOTING MARKED INCREASE IN PAIN AFTER PT. IS NOTING SIGNIFICANT BACK PAIN. RATES PAIN 30/10. IS HAVING SEVERE '[facility] HORSES" IN BOTH LEGS.STATES HE HAS TAKEN HIS MEDS MORE THAN 2 TIMES PER DAY AND IS OUT.. CURRENT MEDICATIONS TAKING ASPIRIN ADULT LOW STRENGTH 81 MG TABLETS 1 TABLET ORALLY ONCE A DAY TAKING ATORVASTATIN CALCIUM 40 MG TABLET 1 TABLET ORALLY QHS TAKING SYMBICORT 160-4.5 MCG/ACT AEROSOL 2 PUFFS INHALATION TWICE A DAY TAKING GABAPENTIN 600 MG TABLET 1 TABLET ORALLY TID TAKING ISOSORBIDE DINITRATE 60 MG TABLET 1 TABLET ORALLY DAILY TAKING LISINOPRIL 10 MG TABLET 1 TABLET ORALLY ONCE A DAY TAKING LORATADINE 10 MG TABLET 1 TABLET ORALLY ONCE A DAY TAKING METOPROLOL SUCCINATE ER 25 MG TABLET EXTENDED RELEASE 24 HOUR 1 TABLET ORALLY TWICE A DAY TAKING NITROGLYCERIN 0.4 MG PATCH 24 HOUR 1 PATCH TO SKIN REMOVE AFTER 12 HOURS DAILY TAKING EFFIENT 10 MG TABLET ORALLY DAILY TAKING RANEXA 1000 MG TABLET EXTENDED RELEASE 12 HOUR 1 TABLET ORALLY TWICE A DAY TAKING OMEPRAZOLE 20 MG CAPSULE DELAYED RELEASE 1 CAPSULE ORALLY QD TAKING TOPIRAMATE 50 MG TABLET 1 TABLET ORALLY TWICE A DAY TAKING VENTOLIN HFA 200 MG AEROSOL SOLUTION 2 PUFFS NEEDED INHALATION EVERY 4 HRS TAKING METHOCARBAMOL 750 MG TABLET 1 TABLET ORALLY BID TAKING NORCO 5-325 MG TABLET 1 TABLET ORALLY 8- 12 HRS PRN PAIN MDD=2 NOT-TAKING IBUPROFEN 600 MG TABLET 1 TABLET ORALLY BID PRN PAIN. TAKE WITH FOOD NOT-TAKING PREDNISONE 10 MG (21) TABLET THERAPY PACK ORALLY NOT-TAKING TESSALON PERLES 100 MG CAPSULE 1 CAPSULE NEEDED ORALLY THREE TIMES A DAY MEDICATION LIST REVIEWED AND RECONCILED WITH THE PATIENT PAST MEDICAL HISTORY HYPERTENSION CARDIOVASCULAR DISEASE [place] X2 ALLERGIES IV DYE: ITCHING AND SWEATING: ALLERGY SOCIAL HISTORY GENERAL: PAIN CLINIC PFS, CLERGY, PUBLIC HEALTH REFERRALS PFS REFERRAL NEEDED?NO CLERGY REFERRAL NEEDED?NO PUBLIC HEALTH REFERRAL NEEDED?NO WAS THE PROVIDER NOTIFIED OF ANY PERTINENT INFO?NO HAS THE PATIENT BEEN EDUCATED REGARDING HIS/HER PLAN OF CARE?YES HAS THE PATIENT BEEN EDUCATED REGARDING PAIN, THE RISK FOR PAIN, THE IMPORTANCE OF EFFECTIVE PAIN MANAGEMENT, AND THE PAIN ASSESSMENT PROCESS?YES PATIENT: IS AWARE THAT THEY ARE RESPONSIBLE AND GUARDIAN OF THE PRESCRIBED MEDICATIONS. REVIEW OF SYSTEMS REVIEWED BY: PROVIDER: MANISHA BROWN . CONSTITUTIONAL: ANY CHANGE IN YOUR MEDICAL CONDITION? NO . CHILLS NO . FEVER NO . INFECTION: DO YOU HAVE NEW INFECTIONS? NO . DO YOU HAVE HISTORY OF MRSA? NO . MUSCULOSKELETAL: ANY NEW PATTERNS OF PAIN OR NUMBNESS? NO . GASTROENTEROLOGY: ANY NEW CHANGE IN BOWEL CONTROL? NO . GENITOURINARY: ANY NEW CHANGE IN BLADDER CONTROL? NO . IS THERE A CHANCE YOU COULD BE ? NO . HEMATOLOGY/LYMPH: DO YOU TAKE ANY BLOOD THINNERS? (FOR EXAMPLE- COUMADIN, PLAVIX, AGGRENOX, PLATEL, PRADAXA, OR XARELTO) YES, EFFIENT . WHEN WAS YOUR LAST DOSE? DATE:12/22/16 TIME: 1000 . NEUROLOGY: HAVE YOU FALLEN IN THE PAST 6 MONTHS? NO . ANY NEW EXTREMITY NUMBNESS OR WEAKNESS? NO . CARDIOLOGY: DO YOU HAVE A PACEMAKER OR DEFIBRILLATOR? YES . RESPIRATORY: HAVE YOU BEEN SICK IN THE PAST WEEK? NO . FEVER NO . FLU LIKE SYMPTOMS? NO . COUGH NO . INTEGUMENTARY: DO YOU HAVE ANY RASHES OR OPEN SORES? NO . ALLERGIC/IMMUNO: ARE YOU ALLERGIC TO SHELLFISH OR IV DYE? YES, IV DYE . ANY NEW ALLERGIES? NO . PSYCHIATRIC: DO YOU HAVE THOUGHTS OF HURTING YOURSELF OR SOMEONE ELSE? NO . ARE YOU ABUSED, NEGLECTED, OR IN AN UNSAFE ENVIRONMENT? NO . ENDOCRINOLOGY: ARE YOU DIABETIC? NO . OTHER: DO YOU NEED ANY PRESCRIPTIONS? YES . IF YES, PLEASE LIST: NORCO . ANY NEW PROBLEMS WITH YOUR MEDICATIONS? NO . WHEN DID YOU LAST EAT? ____ . WHEN DID YOU LAST DRINK? ____ . WHAT DID YOU LAST DRINK? ____ . NAME OF PERSON DRIVING YOU HOME? ____ . DO YOU HAVE ANY OTHER QUESTIONS OR CONCERNS NO . VITAL SIGNS WT 178.2 LBS, HT 72 IN, BMI 24.17 INDEX, BP 128/81 MM HG, HR 86 /MIN, RR 18 /MIN, TEMP 97.5 F, OXYGEN SAT % 92%, NA INITIALS SC 14:36, REVIEWED BY: DILCIA. EXAMINATION GENERAL EXAMINATION: GENERAL APPEARANCE:SKIN WARM, DRY, COLOR PINK. PSYCHALERT , ORIENTED X 3 , APPROPRIATE MOOD AND AFFECT . LUNGS:CLEAR TO AUSCULTATION BILATERALLY. HEART:HEART RATE REGULAR. MUSCULOSKELETAL:TRIGGER POINTS:, ELICITED WITH PALPATION OVER LUMBAR PARAVERTEBRAL MUSCLES AND INTO THE SACRUM. RESTRICTION OF ROM IN THIS AREA. POSTURE STOOPED. SLOW TO RISE TO STANDING POSITION.. GAIT NONANTALGIC. NO ECCYMOTIC AREAS ACROSS SACRUM. ASSESSMENTS MYALGIA - M79.1 (PRIMARY) CHRONIC PRESCRIPTION OPIATE USE - Z79.891 TREATMENT MYALGIA REFILL NORCO TABLET, 5-325 MG, 1 TABLET, ORALLY, 8- 12 HRS PRN PAIN MDD=2, 30 DAY(S), 60, REFILLS 0 STOP METHOCARBAMOL TABLET, 750 MG, 1 TABLET, ORALLY, BID START BACLOFEN TABLET, 10 MG, 1 TABLET WITH FOOD OR MILK, ORALLY, THREE TIMES A DAY, 30 DAY(S), 90, REFILLS 1 TRIGGER POINT 3 + MANISHA NORRIS 12/22/2016 3:26:11 PM > LOW BACK - ON EFFIENT NOTES: DO NOT STOP EFFIENT FOR TRIGGER POINTS. CLINICAL NOTES: ISTOP REGISTRY REVIEWED AND DEMNOSTRATES COMPLLIANCE. DOES NOT BRINGS IN MEDICATIONS WHICH IS APPROPRIATE FOR WHAT WAS DISPENSED. RECENT URINE TOXICOLOGY REVIEWED. NO UNAUTHORIZED MEDICATIONS. NO ILLICIT SUBSTANCES AND PRESCRIBED MEDICATIONS WERE PRESENT. REVIEWED WITH PAITIENT THAT WE WILL NOT BE INCREASING HIS NUMBER OF HYDROCODONE PER DAY. PROCEDURE CODES FA211 ESTABILISHED PATIENT [facility] CHARGE DISPOSITION & COMMUNICATION FOLLOW UP AFTER INJECTION (REASON: CHECK AUTH FOR TPI - SCHED LATE DECEMBER) ELECTRONICALLY SIGNED BY JUAN MIGUEL CLEMENT ON 01/08/2017 AT 08:51 AM EDT DISCLAIMER : THIS IS A VISIT SUMMARY EXTRACTED FROM THE [employer] CHART. IT IS NOT A COPY OF THE [employer] PROGRESS NOTE. LARON
== END ==
LOC: M PAIN 14:40
PROVIDERS: ATTEND Nurse Practitioner Family
DX: G89.29 Other chronic pain (principal); M79.1 Myalgia; I10 Essential (primary) hypertension; I25.2 Old myocardial infarction; Z79.82 Long term (current) use of aspirin; Z79.891 Long term (current) use of opiate analgesic; Z79.899 Other long term (current) drug therapy; Z91.048 Other nonmedicinal substance allergy status

== ENCOUNTER → 2016-12-22 | Outpatient (CLI) | payer OTHER ==
[~2016-12-22] MED LIST changes: +ATOR40TA PO; -ATOR40TA75 PO; -IBUP1TAB7 PO; +IBUP800T23 PO; +MELO7.5T6 PO; -MELO7.5T7 PO; +TOPA50TA7 PO; -TOPA50TA8 PO
[2016-12-22 18:04] LABS: FOLATE 7.1 NG/ML (>5.4); TOTAL PROTEIN 7.1 GM/DL (6.4-8.2)
[2016-12-22 18:57] LABS: VITAMIN B12 LEVEL 686 PG/ML (247-911)
[2016-12-23 11:48] LABS: ALBUMIN 4.02 GM/DL (3.29-5.55); ALBUMIN % 56.6 % (55.8-66.1); GAMMA GLOBULIN % 11.4 % (11.1-18.8)
== END ==
LOC: M LAB 15:52
PROVIDERS: ATTEND Psychiatry & Neurology Neurology
DX: E11.9 Type 2 diabetes mellitus without complications (principal); G62.9 Polyneuropathy, unspecified

== ENCOUNTER → 2017-01-07 | Outpatient (CLI) | payer OTHER ==
[~2017-01-07] MED LIST changes: -ATOR40TA PO; +ATOR40TA75 PO; +BUPIVACAINE HCL 0.25% 10 ML VIAL As Ordered ONE; +BUPIVACAINE HCL 0.25% 30 ML VIAL As Ordered ONE; +IBUP1TAB7 PO; -IBUP800T23 PO; -MELO7.5T6 PO; +MELO7.5T7 PO; -TOPA50TA7 PO; +TOPA50TA8 PO; +TRIAMCINOLONE ACETONIDE SUSP 40 MG/ML VIAL (J3301) As Ordered ONE; +diazePAM 5 MG TAB As Ordered ONE; +oxyCODONE 5MG TAB As Ordered ONE
--- NOTE | 2017-01-12 23:16 | ECWPNPC ---
PATIENT NAME: ROME DODSON : 1960 GENDER: MALE VISIT DATE: 01/07/2017 DISCHARGE DATE: 01/07/17 1640 VISIT LOCKED DATE TIME: PHYSICIAN: ROBERT QUILES RESOURCE: ROBERT QUILES REASON FOR APPOINTMENT 1. LOW BACK HISTORY OF PRESENT ILLNESS HISTORY OF PRESENT ILLNESS: PAIN THE PATIENT DESCRIBES THE PAIN... FALL RISK SCREENING: SCREENING :NO FALLS IN THE PAST YEAR CURRENT MEDICATIONS TAKING ASPIRIN ADULT LOW STRENGTH 81 MG TABLETS 1 TABLET ORALLY ONCE A DAY, NOTES: 01-07-17999 TAKING ATORVASTATIN CALCIUM 40 MG TABLET 1 TABLET ORALLY QHS, NOTES: 01-07-17999 TAKING SYMBICORT 160-4.5 MCG/ACT AEROSOL 2 PUFFS INHALATION TWICE A DAY, NOTES: 01-07-17999 TAKING GABAPENTIN 600 MG TABLET 1 TABLET ORALLY TID, NOTES: 01-07-17999 TAKING ISOSORBIDE DINITRATE 60 MG TABLET 1 TABLET ORALLY DAILY, NOTES: 01-07-17999 TAKING LISINOPRIL 10 MG TABLET 1 TABLET ORALLY ONCE A DAY, NOTES: 01-07-17999 TAKING LORATADINE 10 MG TABLET 1 TABLET ORALLY ONCE A DAY, NOTES: 01-07-17999 TAKING METOPROLOL SUCCINATE ER 25 MG TABLET EXTENDED RELEASE 24 HOUR 1 TABLET ORALLY TWICE A DAY, NOTES: 01-07-17999 TAKING NITROGLYCERIN 0.4 MG PATCH 24 HOUR 1 PATCH TO SKIN REMOVE AFTER 12 HOURS DAILY, NOTES: OFF TAKING EFFIENT 10 MG TABLET ORALLY DAILY, NOTES: 01-07-17999 TAKING RANEXA 1000 MG TABLET EXTENDED RELEASE 12 HOUR 1 TABLET ORALLY TWICE A DAY, NOTES: 01-07-17999 TAKING OMEPRAZOLE 20 MG CAPSULE DELAYED RELEASE 1 CAPSULE ORALLY QD, NOTES: 01-07-17999 TAKING TOPIRAMATE 50 MG TABLET 1 TABLET ORALLY TWICE A DAY, NOTES: 01-07-17999 TAKING VENTOLIN HFA 200 MG AEROSOL SOLUTION 2 PUFFS NEEDED INHALATION EVERY 4 HRS, NOTES: NONE TAKING NORCO 5-325 MG TABLET 1 TABLET ORALLY 8- 12 HRS PRN PAIN MDD=2, NOTES: 01-07-17999 TAKING BACLOFEN 10 MG TABLET 1 TABLET WITH FOOD OR MILK ORALLY THREE TIMES A DAY, NOTES: 01-06-17 2100 DISCONTINUED IBUPROFEN 600 MG TABLET 1 TABLET ORALLY BID PRN PAIN. TAKE WITH FOOD DISCONTINUED PREDNISONE 10 MG (21) TABLET THERAPY PACK ORALLY DISCONTINUED TESSALON PERLES 100 MG CAPSULE 1 CAPSULE NEEDED ORALLY THREE TIMES A DAY MEDICATION LIST REVIEWED AND RECONCILED WITH THE PATIENT PAST MEDICAL HISTORY HYPERTENSION CARDIOVASCULAR DISEASE [place] X2 ALLERGIES IV DYE: ITCHING AND SWEATING: ALLERGY REVIEW OF SYSTEMS REVIEWED BY: PROVIDER: . CONSTITUTIONAL: ANY CHANGE IN YOUR MEDICAL CONDITION? NO . CHILLS NO . FEVER NO . INFECTION: DO YOU HAVE NEW INFECTIONS? NO . DO YOU HAVE HISTORY OF MRSA? NO . MUSCULOSKELETAL: ANY NEW PATTERNS OF PAIN OR NUMBNESS? NO . GASTROENTEROLOGY: ANY NEW CHANGE IN BOWEL CONTROL? NO . GENITOURINARY: ANY NEW CHANGE IN BLADDER CONTROL? NO . IS THERE A CHANCE YOU COULD BE ? NO . HEMATOLOGY/LYMPH: DO YOU TAKE ANY BLOOD THINNERS? (FOR EXAMPLE- COUMADIN, PLAVIX, AGGRENOX, PLATEL, PRADAXA, OR XARELTO) YES, 01-07-17 @1000 . WHEN WAS YOUR LAST DOSE? DATE: TIME: 01-07-17 1000 . NEUROLOGY: HAVE YOU FALLEN IN THE PAST 6 MONTHS? NO . ANY NEW EXTREMITY NUMBNESS OR WEAKNESS? NO . CARDIOLOGY: DO YOU HAVE A PACEMAKER OR DEFIBRILLATOR? YES, PACER/DEFRIBILLATOR . RESPIRATORY: HAVE YOU BEEN SICK IN THE PAST WEEK? NO . FEVER NO . FLU LIKE SYMPTOMS? NO . COUGH NO . INTEGUMENTARY: DO YOU HAVE ANY RASHES OR OPEN SORES? NO . ALLERGIC/IMMUNO: ARE YOU ALLERGIC TO SHELLFISH OR IV DYE? YES, IV DYE . ANY NEW ALLERGIES? NO . PSYCHIATRIC: DO YOU HAVE THOUGHTS OF HURTING YOURSELF OR SOMEONE ELSE? NO . ARE YOU ABUSED, NEGLECTED, OR IN AN UNSAFE ENVIRONMENT? NO . ENDOCRINOLOGY: ARE YOU DIABETIC? NO . OTHER: DO YOU NEED ANY PRESCRIPTIONS? YES . IF YES, PLEASE LIST: NORCO 5/325MG . ANY NEW PROBLEMS WITH YOUR MEDICATIONS? NO . WHEN DID YOU LAST EAT? 01-06-17 PM . WHEN DID YOU LAST DRINK? 01-07-17 . WHAT DID YOU LAST DRINK? BLACK COFFEE . NAME OF PERSON DRIVING YOU HOME? ARELY Lares . DO YOU HAVE ANY OTHER QUESTIONS OR CONCERNS NO . VITAL SIGNS WT 180 LBS, HT 72 IN, BMI 24.41 INDEX, BP 135/77 MM HG, HR 105 /MIN, RR 16 /MIN, TEMP 97.9 F, OXYGEN SAT % 93%, NA INITIALS GA 14:06, REVIEWED BY: CM. ASSESSMENTS MYALGIA - M79.1 (PRIMARY) PROCEDURES PN TRIGGER POINT INJECTION NO STEROIDS DATE OF PROCEDURE : PRE PROCEDURE DIAGNOSIS 1. MYALGIA 2. PAIN AT BILATERAL LOW BACK AREA POST PROCEDURE DIAGNOSIS 1. MYALGIA 2. PAIN AT BILATERAL LOW BACK AREA PROCEDURE TRIGGER POINT INJECTION AT BILATERAL LOW BACK AREA SURGEON DR. ROBERT QUILES SUCTION WORKER NONE ANESTHESIA LOCAL PRE PROCEDURE NOTE 56 YEAR-OLD PATIENT WITH HISTORY OF CHRONIC LOW BACK PAIN. I EVALUATED THE PATIENT AND REVIEWED THE CHART. THERE IS EVIDENCE OF BANDS OF TISSUE WITH RESTRICTION OF MOVEMENT AND PRESENCE OF TRIGGER POINT AT THE AFFECTED AREA. I WENT OVER THE RISKS, ALTERNATIVES, AND BENEFITS ASSOCIATED WITH THIS PROCEDURE. THE PATIENT WOULD LIKE TO PROCEED AND GAVE CONSENT TO PERFORM THE PROCEDURE. THE PATIENT DENIES UNEXPLAINABLE WEIGHT LOSS, FEVER, CHILLS, OR NEW CHANGES IN URINARY OR BOWEL CONTROL. DESCRIPTION OF PROCEDURE THE PATIENT WAS BROUGHT TO THE PROCEDURE ROOM AND PLACED IN THE SITTING POSITION. THE LOW BACK AREA WAS CLEANED WITH ALCOHOL. THE PROCEDURE WAS DONE USING ASEPTIC STERILE TECHNIQUES. I CHECKED LATERALITY AND THE LEVEL WHERE THE PROCEDURE WAS GOING TO BE PERFORMED WITH THE PATIENT AND THE SUPPORTING STAFF AT THE MOMENT OF THE TIME OUT IN THE PROCEDURE ROOM. USING A 25-GAUGE NEEDLE, TRIGGER POINTS WERE INJECTED WITH A TOTAL OF 40 ML OF BUPIVACAINE 0.25%. AGREED WITH THE PATIENT THE PROCEDURE WAS DONE WITHOUT STEROIDS. THERE WAS NO EVIDENCE OF BLOOD, PARESTHESIA OR CEREBROSPINAL FLUID DURING THE PROCEDURE. THE PATIENT WAS SENT TO THE RECOVERY ROOM. THE PATIENT WAS MOVING THE EXTREMITIES AND DOING WELL. THERE WAS NO COMPLICATION DURING THE PROCEDURE. POST PROCEDURE NOTE THE PATIENT WILL BE SEEN IN A FOLLOW UP IN THE NEXT FEW WEEKS. INSTRUCTIONS WERE GIVEN, QUESTIONS WERE ANSWERED, AND THE PATIENT EXPRESSED UNDERSTANDING AND AGREED WITH THE PLAN. I, JASMINE HAM, DOCUMENTED THE ABOVE INFORMATION ACTING A SCRIBE FOR DR. QUILES. I HAVE REVIEWED THE ABOVE DOCUMENT, WRITTEN BY JASMINE HAM SCRIBMaria E AND I VERIFY THAT IT IS ACCURATE PROCEDURE CODES 17756 INJ TRIGGER POINT 07/13 [facility] [place] FOLLOW UP 3 WEEKS ELECTRONICALLY SIGNED BY ROBERT QUILES MD ON 01/12/2017 AT 09:52 PM EDT DISCLAIMER : THIS IS A VISIT SUMMARY EXTRACTED FROM THE [employer] CHART. IT IS NOT A COPY OF THE [employer] PROGRESS NOTE. MTDD
== END ==
LOC: M PAIN 14:00
PROVIDERS: ATTEND Anesthesiology
DX: G89.29 Other chronic pain (principal); M79.1 Myalgia; I10 Essential (primary) hypertension; I25.2 Old myocardial infarction; Z91.048 Other nonmedicinal substance allergy status; Z79.82 Long term (current) use of aspirin; Z79.891 Long term (current) use of opiate analgesic; Z79.899 Other long term (current) drug therapy

== ENCOUNTER → 2017-01-28 | Outpatient (CLI) | payer OTHER ==
[~2017-01-28] MED LIST changes: -BUPIVACAINE HCL 0.25% 10 ML VIAL As Ordered ONE; -BUPIVACAINE HCL 0.25% 30 ML VIAL As Ordered ONE; -TRIAMCINOLONE ACETONIDE SUSP 40 MG/ML VIAL (J3301) As Ordered ONE; -diazePAM 5 MG TAB As Ordered ONE; -oxyCODONE 5MG TAB As Ordered ONE
--- NOTE | 2017-02-28 00:09 | ECWPNPC ---
PATIENT NAME: ROME DODSON : 1960 GENDER: MALE VISIT DATE: 01/28/2017 DISCHARGE DATE: 01/28/17 1549 VISIT LOCKED DATE TIME: PHYSICIAN: MANISHA BRENNER RESOURCE: MANISHA BRENNER REASON FOR APPOINTMENT 1. POST PROCEDURE HISTORY OF PRESENT ILLNESS TODAY'S VISIT: NOTES: S/P TRIGGER POINT INJECTIONS TO LOW BACK 01/07/17. REPORTS 40-60% RELIEF FOR 3 WEEKS AFTER THE INJECTION. HAS NOTED IMPROVEMENT IN WALKING. HAS COMPLETED PHYSICAL THERAPY. . HISTORY OF PRESENT ILLNESS: PAIN THE PATIENT DESCRIBES THE PAIN... FALL RISK SCREENING: SCREENING :NO FALLS IN THE PAST YEAR CURRENT MEDICATIONS TAKING ASPIRIN ADULT LOW STRENGTH 81 MG TABLETS 1 TABLET ORALLY ONCE A DAY TAKING ATORVASTATIN CALCIUM 40 MG TABLET 1 TABLET ORALLY QHS TAKING SYMBICORT 160-4.5 MCG/ACT AEROSOL 2 PUFFS INHALATION TWICE A DAY TAKING ISOSORBIDE DINITRATE 60 MG TABLET 1 TABLET ORALLY DAILY TAKING LISINOPRIL 10 MG TABLET 1 TABLET ORALLY ONCE A DAY TAKING LORATADINE 10 MG TABLET 1 TABLET ORALLY ONCE A DAY TAKING METOPROLOL SUCCINATE ER 25 MG TABLET EXTENDED RELEASE 24 HOUR 1 TABLET ORALLY TWICE A DAY TAKING NITROGLYCERIN 0.4 MG PATCH 24 HOUR 1 PATCH TO SKIN REMOVE AFTER 12 HOURS DAILY TAKING EFFIENT 10 MG TABLET ORALLY DAILY TAKING RANEXA 1000 MG TABLET EXTENDED RELEASE 12 HOUR 1 TABLET ORALLY TWICE A DAY TAKING OMEPRAZOLE 20 MG CAPSULE DELAYED RELEASE 1 CAPSULE ORALLY QD TAKING TOPIRAMATE 50 MG TABLET 1 TABLET ORALLY TWICE A DAY TAKING VENTOLIN HFA 200 MG AEROSOL SOLUTION 2 PUFFS NEEDED INHALATION EVERY 4 HRS TAKING BACLOFEN 10 MG TABLET 1 TABLET WITH FOOD OR MILK ORALLY THREE TIMES A DAY TAKING NORCO 5-325 MG TABLET 1 TABLET ORALLY 8- 12 HRS PRN PAIN MDD=2 TAKING GABAPENTIN 100 MG CAPSULE 2 TABLETS ORALLY 3 TIMES A DAY NOT-TAKING GABAPENTIN 600 MG TABLET 1 TABLET ORALLY TID, NOTES: 01-07-17 1000 MEDICATION LIST REVIEWED AND RECONCILED WITH THE PATIENT PAST MEDICAL HISTORY HYPERTENSION CARDIOVASCULAR DISEASE ID X2 ALLERGIES IV DYE: ITCHING AND SWEATING: ALLERGY SOCIAL HISTORY GENERAL: PAIN CLINIC PFS, CLERGY, PUBLIC HEALTH REFERRALS PFS REFERRAL NEEDED?NO CLERGY REFERRAL NEEDED?NO PUBLIC HEALTH REFERRAL NEEDED?NO WAS THE PROVIDER NOTIFIED OF ANY PERTINENT INFO?NO HAS THE PATIENT BEEN EDUCATED REGARDING HIS/HER PLAN OF CARE?YES HAS THE PATIENT BEEN EDUCATED REGARDING PAIN, THE RISK FOR PAIN, THE IMPORTANCE OF EFFECTIVE PAIN MANAGEMENT, AND THE PAIN ASSESSMENT PROCESS?YES PATIENT: IS AWARE THAT THEY ARE RESPONSIBLE AND GUARDIAN OF THE PRESCRIBED MEDICATIONS. REVIEW OF SYSTEMS REVIEWED BY: PROVIDER: MANISHA BROWN . CONSTITUTIONAL: ANY CHANGE IN YOUR MEDICAL CONDITION? NO . CHILLS NO . FEVER NO . INFECTION: DO YOU HAVE NEW INFECTIONS? NO . DO YOU HAVE HISTORY OF MRSA? NO . MUSCULOSKELETAL: ANY NEW PATTERNS OF PAIN OR NUMBNESS? NO . GASTROENTEROLOGY: ANY NEW CHANGE IN BOWEL CONTROL? NO . GENITOURINARY: ANY NEW CHANGE IN BLADDER CONTROL? NO . IS THERE A CHANCE YOU COULD BE ? NO . HEMATOLOGY/LYMPH: DO YOU TAKE ANY BLOOD THINNERS? (FOR EXAMPLE- COUMADIN, PLAVIX, AGGRENOX, PLATEL, PRADAXA, OR XARELTO) YES . WHEN WAS YOUR LAST DOSE? DATE:01/28/17 TIME: 1000 . NEUROLOGY: HAVE YOU FALLEN IN THE PAST 6 MONTHS? NO . ANY NEW EXTREMITY NUMBNESS OR WEAKNESS? NO . BALANCE DIFFICULTY IMPROVING WITH PHYSICAL THERAPY . STROKES DENIES ANY NEW STROKE SYMPTOMS . CARDIOLOGY: DO YOU HAVE A PACEMAKER OR DEFIBRILLATOR? YES . CHEST PAIN PATIENT DENIES . RESPIRATORY: HAVE YOU BEEN SICK IN THE PAST WEEK? NO . FEVER NO . FLU LIKE SYMPTOMS? NO . COUGH NO . INTEGUMENTARY: DO YOU HAVE ANY RASHES OR OPEN SORES? NO . ALLERGIC/IMMUNO: ARE YOU ALLERGIC TO SHELLFISH OR IV DYE? YES, IV DYE . ANY NEW ALLERGIES? NO . PSYCHIATRIC: DO YOU HAVE THOUGHTS OF HURTING YOURSELF OR SOMEONE ELSE? NO . ARE YOU ABUSED, NEGLECTED, OR IN AN UNSAFE ENVIRONMENT? NO . ENDOCRINOLOGY: ARE YOU DIABETIC? NO . OTHER: DO YOU NEED ANY PRESCRIPTIONS? YES . IF YES, PLEASE LIST: GABAPENTIN AND NORCO . ANY NEW PROBLEMS WITH YOUR MEDICATIONS? NO . WHEN DID YOU LAST EAT? ____ . WHEN DID YOU LAST DRINK? ____ . WHAT DID YOU LAST DRINK? ____ . NAME OF PERSON DRIVING YOU HOME? ____ . DO YOU HAVE ANY OTHER QUESTIONS OR CONCERNS NO . VITAL SIGNS WT 186.2 LBS, HT 72 IN, BMI 25.25 INDEX, BP 126/78 MM HG, HR 64 /MIN, RR 16 /MIN, TEMP 98.6 F, OXYGEN SAT % 95%, NA INITIALS SC 15:18, REVIEWED BY: DILCIA. EXAMINATION GENERAL EXAMINATION: GENERAL APPEARANCE:SKIN WARM, DRY, COLOR PINK. PSYCHALERT , ORIENTED X 3 , APPROPRIATE MOOD AND AFFECT . LUNGS:CLEAR TO AUSCULTATION BILATERALLY. HEART:HEART RATE REGULAR. MUSCULOSKELETAL:TRIGGER POINTS:, ELICITED WITH PALPATION OVER LUMBAR PARAVERTEBRAL MUSCLES AND INTO THE SACRUM. RESTRICTION OF ROM IN THIS AREA. POSTURE STOOPED. SLOW TO RISE TO STANDING POSITION.. GAIT NONANTALGIC. NO ECCYMOTIC AREAS ACROSS SACRUM. ASSESSMENTS MYALGIA - M79.1 (PRIMARY) CHRONIC PRESCRIPTION OPIATE USE - Z79.891 TREATMENT MYALGIA REFILL GABAPENTIN CAPSULE, 300 MG, 1 TABLET, ORALLY, TID, 30 DAY(S), 90 TABLET, REFILLS 1 REFILL NORCO TABLET, 5-325 MG, 1 TABLET, ORALLY, 8- 12 HRS PRN PAIN MDD=3, 30 DAY(S), 90, REFILLS 0 TRIGGER POINT 3 + MANISHA NORRIS 01/28/2017 3:29:52 PM > LOW BACK - ON EFFIENT BLOOD THINNER CLINICAL NOTES: ISTOP REGISTRY REVIEWED AND DEMNOSTRATES COMPLLIANCE. DOES NOT BRING IN MEDICATIONS WHICH IS APPROPRIATE FOR WHAT WAS DISPENSED. STATES HE "HAD TO TAKE EXTRA BECAUSE PAIN WAS SO BAD. EXPLAINED AGAIN THAT THE QUANTITY OF PAIN MEDICATION WILL NOT BE INCREASED AND THAT HE IS TO TAKE IT INFREQUENTLY AND NOT DAILY. RECENT URINE TOXICOLOGY REVIEWED. NO UNAUTHORIZED MEDICATIONS. NO ILLICIT SUBSTANCES AND PRESCRIBED MEDICATIONS WERE PRESENT. , RISKS AND BENEFITS OF NARCOTIC/OPIOD MEDICATIONS WERE REVIEWED WITH PATIENT - THIS INCLUDES BUT IS NOT LIMITED TO RISK OF DEPENDANCE/DEVELOPMENT OF ADDICTION, MOOD DISTURBANCE AND DEPRESSION, OSTEOPOROSIS, HORMONAL AND LABIDAL CHANGES, RESPIRATORY DEPRESSION AND . PATIENT IS ADVISED NOT TO DRIVE WHILE ON THESE MEDICATIONS. PREVENTIVE MEDICINE PAIN CLINIC TEACHING: PROCEDURE TEACHING PRE-PROCEDURE TEACHING DONE. PROCEDURE CODES FA211 ESTABILISHED PATIENT [facility] CHARGE DISPOSITION & COMMUNICATION FOLLOW UP AFTER INJECTION (REASON: [facility] - NEED LABS DONE IN LAST 6 MONTHS AT [facility]) ELECTRONICALLY SIGNED BY JUAN MIGUEL CLEMENT ON 02/25/2017 AT 08:51 AM EDT DISCLAIMER : THIS IS A VISIT SUMMARY EXTRACTED FROM THE [employer] CHART. IT IS NOT A COPY OF THE [employer] PROGRESS NOTE. MTDD
== END ==
LOC: M PAIN 14:20
PROVIDERS: ATTEND Nurse Practitioner Family
DX: M79.1 Myalgia (principal); Z79.891 Long term (current) use of opiate analgesic; Z79.899 Other long term (current) drug therapy; Z79.82 Long term (current) use of aspirin; Z91.041 Radiographic dye allergy status

== ENCOUNTER → 2017-02-08 | Outpatient (CLI) | payer OTHER ==
[~2017-02-08] MED LIST changes: +BUPIVACAINE HCL 0.25% 10 ML VIAL As Ordered ONE; +BUPIVACAINE HCL 0.25% 30 ML VIAL As Ordered ONE; +TRIAMCINOLONE ACETONIDE SUSP 40 MG/ML VIAL (J3301) As Ordered ONE; +diazePAM 5 MG TAB As Ordered ONE; +oxyCODONE 5MG TAB As Ordered ONE
--- NOTE | 2017-02-23 00:13 | ECWPNPC ---
PATIENT NAME: ROME DODSON : 1960 GENDER: MALE VISIT DATE: 02/08/2017 DISCHARGE DATE: 02/08/171611 VISIT LOCKED DATE TIME: PHYSICIAN: ROBERT QUILES RESOURCE: ROBERT QUILES REASON FOR APPOINTMENT 1. TPI HISTORY OF PRESENT ILLNESS HISTORY OF PRESENT ILLNESS: PAIN THE PATIENT DESCRIBES THE PAIN... FALL RISK SCREENING: SCREENING :NO FALLS IN THE PAST YEAR CURRENT MEDICATIONS TAKING GABAPENTIN 300 MG CAPSULE 1 TABLET ORALLY TID, NOTES: 02/08/17999 TAKING NORCO 5-325 MG TABLET 1 TABLET ORALLY 8- 12 HRS PRN PAIN MDD=3, NOTES: 02/08/17999 TAKING ASPIRIN ADULT LOW STRENGTH 81 MG TABLETS 1 TABLET ORALLY ONCE A DAY, NOTES: 02/08/17999 TAKING ATORVASTATIN CALCIUM 40 MG TABLET 1 TABLET ORALLY QHS, NOTES: 02/07/171999 TAKING SYMBICORT 160-4.5 MCG/ACT AEROSOL 2 PUFFS INHALATION TWICE A DAY, NOTES: 02/08/17999 TAKING ISOSORBIDE DINITRATE 60 MG TABLET 1 TABLET ORALLY DAILY, NOTES: 02/08/17999 TAKING LISINOPRIL 10 MG TABLET 1 TABLET ORALLY ONCE A DAY, NOTES: 02/08/17999 TAKING LORATADINE 10 MG TABLET 1 TABLET ORALLY ONCE A DAY, NOTES: 02/08/17999 TAKING METOPROLOL SUCCINATE ER 25 MG TABLET EXTENDED RELEASE 24 HOUR 1 TABLET ORALLY TWICE A DAY, NOTES: 02/08/17999 TAKING NITROGLYCERIN 0.4 MG PATCH 24 HOUR 1 PATCH TO SKIN REMOVE AFTER 12 HOURS DAILY, NOTES: NONE LATELY TAKING EFFIENT 10 MG TABLET ORALLY DAILY, NOTES: 02/08/17999 TAKING RANEXA 1000 MG TABLET EXTENDED RELEASE 12 HOUR 1 TABLET ORALLY TWICE A DAY, NOTES: 02/08/17999 TAKING OMEPRAZOLE 20 MG CAPSULE DELAYED RELEASE 1 CAPSULE ORALLY QD, NOTES: 02/08/17999 TAKING TOPIRAMATE 50 MG TABLET 1 TABLET ORALLY TWICE A DAY, NOTES: 02/08/17999 TAKING VENTOLIN HFA 200 MG AEROSOL SOLUTION 2 PUFFS NEEDED INHALATION EVERY 4 HRS, NOTES: NONE LATELY TAKING BACLOFEN 10 MG TABLET 1 TABLET WITH FOOD OR MILK ORALLY THREE TIMES A DAY, NOTES: 02/08/17999 TAKING GABAPENTIN 100 MG CAPSULE 2 TABLETS ORALLY 3 TIMES A DAY, NOTES: 7/31/17 1000 MEDICATION LIST REVIEWED AND RECONCILED WITH THE PATIENT PAST MEDICAL HISTORY HYPERTENSION CARDIOVASCULAR DISEASE PA X2 ALLERGIES IV DYE: ITCHING AND SWEATING: ALLERGY SURGICAL HISTORY BROKEN BONES REPAIRED TONSILS AICD PLACED 2013 REVIEW OF SYSTEMS REVIEWED BY: PROVIDER: . CONSTITUTIONAL: ANY CHANGE IN YOUR MEDICAL CONDITION? NO . CHILLS NO . FEVER NO . INFECTION: DO YOU HAVE NEW INFECTIONS? NO . DO YOU HAVE HISTORY OF MRSA? NO . MUSCULOSKELETAL: ANY NEW PATTERNS OF PAIN OR NUMBNESS? NO . GASTROENTEROLOGY: ANY NEW CHANGE IN BOWEL CONTROL? NO . GENITOURINARY: ANY NEW CHANGE IN BLADDER CONTROL? NO . IS THERE A CHANCE YOU COULD BE ? NO . HEMATOLOGY/LYMPH: DO YOU TAKE ANY BLOOD THINNERS? (FOR EXAMPLE- COUMADIN, PLAVIX, AGGRENOX, PLATEL, PRADAXA, OR XARELTO) YES, EFFIENT 02/08/17 1000 . WHEN WAS YOUR LAST DOSE? DATE: TIME: . NEUROLOGY: HAVE YOU FALLEN IN THE PAST 6 MONTHS? YES, FELL ON ICE 07/2016, HIT HEAD, WAS SEEN PT TO [facility] ER . ANY NEW EXTREMITY NUMBNESS OR WEAKNESS? NO . CARDIOLOGY: DO YOU HAVE A PACEMAKER OR DEFIBRILLATOR? YES, AICD . RESPIRATORY: HAVE YOU BEEN SICK IN THE PAST WEEK? NO . FEVER NO . FLU LIKE SYMPTOMS? NO . COUGH NO . INTEGUMENTARY: DO YOU HAVE ANY RASHES OR OPEN SORES? NO . ALLERGIC/IMMUNO: ARE YOU ALLERGIC TO SHELLFISH OR IV DYE? YES . ANY NEW ALLERGIES? NO . PSYCHIATRIC: DO YOU HAVE THOUGHTS OF HURTING YOURSELF OR SOMEONE ELSE? NO . ARE YOU ABUSED, NEGLECTED, OR IN AN UNSAFE ENVIRONMENT? NO . ENDOCRINOLOGY: ARE YOU DIABETIC? NO . OTHER: DO YOU NEED ANY PRESCRIPTIONS? NO . IF YES, PLEASE LIST: ____ . ANY NEW PROBLEMS WITH YOUR MEDICATIONS? NO . WHEN DID YOU LAST EAT? 02/07/17 2100 . WHEN DID YOU LAST DRINK? 02/08/17 1000 . WHAT DID YOU LAST DRINK? BLACK COFFEE . NAME OF PERSON DRIVING YOU HOME? SHAZIA . DO YOU HAVE ANY OTHER QUESTIONS OR CONCERNS NO . VITAL SIGNS WT 185.8 LBS, HT 72 IN, BMI 25.20 INDEX, BP 121/81 MM HG, HR 96 /MIN, RR 16 /MIN, TEMP 97.9 F, OXYGEN SAT % 93%, SAFE IN ENV? (Y/N) Y, NA INITIALS AK 13:31, REVIEWED BY: EM. ASSESSMENTS MYALGIA - M79.1 (PRIMARY) PROCEDURES PN TRIGGER POINT INJECTION WITH STEROIDS PRE PROCEDURE DIAGNOSIS 1. MYALGIA 2. PAIN AT BILATERAL LOWER BACK AREA POST PROCEDURE DIAGNOSIS 1. MYALGIA 2. PAIN AT BILATERAL LOWER BACK AREA PROCEDURE TRIGGER POINT INJECTION AT BILATERAL LOWER BACK AREA SURGEON DR. ROBERT QUILES YARD INSPECTOR NONE ANESTHESIA LOCAL PRE PROCEDURE NOTE THE PATIENT HAS A HISTORY OF CHRONIC PAIN AT THE RIGHT AND LEFT LOWER BACK AREA. I EVALUATE THE PATIENT AND REVIEWED THE CHART. THERE IS EVIDENCE OF BANDS OF TISSUE WITH RESTRICTION OF MOVEMENT AND PRESENCE OF TRIGGER POINT AT THE AFFECTED AREA. I WENT OVER THE RISKS, ALTERNATIVES, AND BENEFITS ASSOCIATED WITH THIS PROCEDURE. THE PATIENT WOULD LIKE TO PROCEED AND GIVE CONSENT TO PERFORMED THE PROCEDURE. THE PATIENT DENIES UNEXPLAINABLE WEIGHT LOSS, FEVER, CHILLS, OR NEW CHANGES IN URINARY OR BOWEL CONTROL DESCRIPTION OF PROCEDURE THE PATIENT WAS BROUGHT TO THE PROCEDURE ROOM AND PLACED IN THE SITTING POSITION. THE AREA WAS CLEANED WITH ALCOHOL. THE PROCEDURE WAS DONE USING ASEPTIC STERILE TECHNIQUE. I CHECKED LATERALITY AND THE LEVEL WHERE THE PROCEDURE WAS GOING TO BE PERFORMED WITH THE PATIENT AND THE SUPPORTING STAFF AT THE MOMENT OF THE TIME OUT IN THE PROCEDURE ROOM. USING A 25-GAUGE NEEDLE, TRIGGER POINTS WERE INJECTED AT THE RIGHT AND LEFT LOWER BACK AREA WITH A TOTAL OF 40 ML OF BUPIVACAINE 0.25% AND KENALOG 40 MG. THERE WAS NO EVIDENCE OF BLOOD, PARESTHESIA OR CEREBROSPINAL FLUID DURING THE PROCEDURE. THE PATIENT WAS SENT TO THE RECOVERY ROOM. THE PATIENT WAS MOVING THE EXTREMITIES AND DOING WELL. THERE WAS NO COMPLICATION DURING THE PROCEDURE POST PROCEDURE NOTE THE PATIENT WILL BE SEEN IN A FOLLOW UP IN THE NEXT FEW WEEKS. INSTRUCTIONS WERE GIVEN, QUESTIONS WERE ANSWERED, AND THE PATIENT EXPRESSED UNDERSTANDING AND AGREES WITH THE PLAN. I, KELTON HAGEN, DOCUMENTED THE ABOVE INFORMATION ACTING A SCRIBE FOR DR. QUILES. I HAVE REVIEWED THE ABOVE DOCUMENT, WRITTEN BY KELTON NOWAK AND I VERIFY THAT IT IS ACCURATE PROCEDURE CODES 73622 INJ TRIGGER POINT 07/13 [facility] DISPOSITION & COMMUNICATION FOLLOW UP 3 WEEKS ELECTRONICALLY SIGNED BY ROBERT QUILES MD ON 02/22/2017 AT 08:00 PM EDT DISCLAIMER : THIS IS A VISIT SUMMARY EXTRACTED FROM THE [employer] CHART. IT IS NOT A COPY OF THE [employer] PROGRESS NOTE. MTDD
== END ==
LOC: M PAIN 13:00
PROVIDERS: ATTEND Anesthesiology
DX: G89.29 Other chronic pain (principal); M54.5 Low back pain; M79.1 Myalgia; I10 Essential (primary) hypertension; I25.2 Old myocardial infarction; Z91.041 Radiographic dye allergy status; Z79.01 Long term (current) use of anticoagulants; Z79.891 Long term (current) use of opiate analgesic; Z79.82 Long term (current) use of aspirin; Z79.899 Other long term (current) drug therapy; Z95.810 Presence of automatic (implantable) cardiac defibrillator
CPT/HCPCS: 20552; J3301

== ENCOUNTER → 2017-03-01 | Outpatient (CLI) | payer OTHER ==
[~2017-03-01] MED LIST changes: -BUPIVACAINE HCL 0.25% 10 ML VIAL As Ordered ONE; -BUPIVACAINE HCL 0.25% 30 ML VIAL As Ordered ONE; -TRIAMCINOLONE ACETONIDE SUSP 40 MG/ML VIAL (J3301) As Ordered ONE; -diazePAM 5 MG TAB As Ordered ONE; -oxyCODONE 5MG TAB As Ordered ONE
--- NOTE | 2017-03-14 23:41 | ECWPNPC ---
PATIENT NAME: ROME DODSON : 1960 GENDER: MALE VISIT DATE: 03/01/2017 DISCHARGE DATE: 03/01/179 VISIT LOCKED DATE TIME: PHYSICIAN: MANISHA BRENNER RESOURCE: MANISHA BRENNER REASON FOR APPOINTMENT 1. POST TPI HISTORY OF PRESENT ILLNESS HISTORY OF PRESENT ILLNESS: PAIN THE PATIENT DESCRIBES THE PAIN... FALL RISK SCREENING: SCREENING :NO FALLS IN THE PAST YEAR TODAY'S VISIT: NOTES: S/P TRIGGER POINTS COMPLETED ON 02/08/17. NOTES 60-80% PAIN RELIEF FOR 3 WEEKS POST INJECTION.REPORTS PAIN IS RETURNIGN AND WOULD LIKE TO REPEAT THE INJECTIONS. CURRENT MEDICATIONS TAKING GABAPENTIN 300 MG CAPSULE 1 TABLET ORALLY TID TAKING NORCO 5-325 MG TABLET 1 TABLET ORALLY 8- 12 HRS PRN PAIN MDD=3 TAKING ASPIRIN ADULT LOW STRENGTH 81 MG TABLETS 1 TABLET ORALLY ONCE A DAY TAKING ATORVASTATIN CALCIUM 40 MG TABLET 1 TABLET ORALLY QHS TAKING SYMBICORT 160-4.5 MCG/ACT AEROSOL 2 PUFFS INHALATION TWICE A DAY TAKING ISOSORBIDE DINITRATE 60 MG TABLET 1 TABLET ORALLY DAILY TAKING LISINOPRIL 10 MG TABLET 1 TABLET ORALLY ONCE A DAY TAKING LORATADINE 10 MG TABLET 1 TABLET ORALLY ONCE A DAY TAKING METOPROLOL SUCCINATE ER 25 MG TABLET EXTENDED RELEASE 24 HOUR 1 TABLET ORALLY TWICE A DAY TAKING NITROGLYCERIN 0.4 MG PATCH 24 HOUR 1 PATCH TO SKIN REMOVE AFTER 12 HOURS DAILY TAKING EFFIENT 10 MG TABLET ORALLY DAILY TAKING RANEXA 1000 MG TABLET EXTENDED RELEASE 12 HOUR 1 TABLET ORALLY TWICE A DAY TAKING OMEPRAZOLE 20 MG CAPSULE DELAYED RELEASE 1 CAPSULE ORALLY QD TAKING TOPIRAMATE 50 MG TABLET 1 TABLET ORALLY TWICE A DAY TAKING VENTOLIN HFA 200 MG AEROSOL SOLUTION 2 PUFFS NEEDED INHALATION EVERY 4 HRS TAKING BACLOFEN 10 MG TABLET 1 TABLET WITH FOOD OR MILK ORALLY THREE TIMES A DAY TAKING VITAMIN B12 500 MCG TABLET 2 TABLETS ORALLY ONCE A DAY TAKING MECLIZINE HCL 25 MG CAPSULE ORALLY DIRECTED TAKING MONTELUKAST SODIUM 10 MG TABLET 1 TABLET IN THE EVENING ORALLY ONCE A DAY TAKING FOLIC ACID 1 MG TABLET 1 TABLET ORALLY ONCE A DAY TAKING FERROUS SULFATE 325 MG CAPSULE ORALLY NOT-TAKING GABAPENTIN 100 MG CAPSULE 2 TABLETS ORALLY 3 TIMES A DAY MEDICATION LIST REVIEWED AND RECONCILED WITH THE PATIENT PAST MEDICAL HISTORY HYPERTENSION CARDIOVASCULAR DISEASE NC X2 ALLERGIES IV DYE: ITCHING AND SWEATING: ALLERGY REVIEW OF SYSTEMS REVIEWED BY: PROVIDER: MANISHA BROWN . CONSTITUTIONAL: ANY CHANGE IN YOUR MEDICAL CONDITION? NO . CHILLS NO . FEVER NO . INFECTION: DO YOU HAVE NEW INFECTIONS? NO . DO YOU HAVE HISTORY OF MRSA? NO . MUSCULOSKELETAL: ANY NEW PATTERNS OF PAIN OR NUMBNESS? NO . GASTROENTEROLOGY: ANY NEW CHANGE IN BOWEL CONTROL? NO . GENITOURINARY: ANY NEW CHANGE IN BLADDER CONTROL? NO . IS THERE A CHANCE YOU COULD BE ? NO . HEMATOLOGY/LYMPH: DO YOU TAKE ANY BLOOD THINNERS? (FOR EXAMPLE- COUMADIN, PLAVIX, AGGRENOX, PLATEL, PRADAXA, OR XARELTO) YES - EFFIENT . WHEN WAS YOUR LAST DOSE? DATE: TIME: . NEUROLOGY: HAVE YOU FALLEN IN THE PAST 6 MONTHS? NO . ANY NEW EXTREMITY NUMBNESS OR WEAKNESS? NO . CARDIOLOGY: DO YOU HAVE A PACEMAKER OR DEFIBRILLATOR? YES . RESPIRATORY: HAVE YOU BEEN SICK IN THE PAST WEEK? NO . FEVER NO . FLU LIKE SYMPTOMS? NO . COUGH NO . INTEGUMENTARY: DO YOU HAVE ANY RASHES OR OPEN SORES? NO . ALLERGIC/IMMUNO: ARE YOU ALLERGIC TO SHELLFISH OR IV DYE? YES . ANY NEW ALLERGIES? NO . PSYCHIATRIC: DO YOU HAVE THOUGHTS OF HURTING YOURSELF OR SOMEONE ELSE? NO . ARE YOU ABUSED, NEGLECTED, OR IN AN UNSAFE ENVIRONMENT? NO . ENDOCRINOLOGY: ARE YOU DIABETIC? NO . OTHER: DO YOU NEED ANY PRESCRIPTIONS? YES . IF YES, PLEASE LIST: GABAPENTIN ,HYDROCODONE, ACETAMINAPHEN . ANY NEW PROBLEMS WITH YOUR MEDICATIONS? NO . WHEN DID YOU LAST EAT? ____ . WHEN DID YOU LAST DRINK? ____ . WHAT DID YOU LAST DRINK? ____ . NAME OF PERSON DRIVING YOU HOME? ____ . DO YOU HAVE ANY OTHER QUESTIONS OR CONCERNS NO . VITAL SIGNS WT 193 LBS, HT 72 IN, BMI 26.17 INDEX, BP 124/78 MM HG, HR 88 /MIN, RR 18 /MIN, TEMP 99.8 F, OXYGEN SAT % 94%, NA INITIALS SC 15:10, REVIEWED BY: NL. EXAMINATION GENERAL EXAMINATION: GENERAL APPEARANCE:SKIN WARM, DRY, COLOR PINK. PSYCHALERT , ORIENTED X 3 , APPROPRIATE MOOD AND AFFECT . LUNGS:CLEAR TO AUSCULTATION BILATERALLY. HEART:HEART RATE REGULAR. MUSCULOSKELETAL:TRIGGER POINTS:, ELICITED WITH PALPATION OVER LUMBAR PARAVERTEBRAL MUSCLES AND INTO THE SACRUM. RESTRICTION OF ROM IN THIS AREA. POSTURE STOOPED. SLOW TO RISE TO STANDING POSITION.. GAIT NONANTALGIC. NO ECCYMOTIC AREAS ACROSS SACRUM. ASSESSMENTS MYALGIA - M79.1 (PRIMARY) CHRONIC PRESCRIPTION OPIATE USE - Z79.891 TREATMENT MYALGIA REFILL GABAPENTIN CAPSULE, 300 MG, 1 TABLET, ORALLY, TID, 30 DAY(S), 90 TABLET, REFILLS 5 REFILL NORCO TABLET, 5-325 MG, 1 TABLET, ORALLY, 8- 12 HRS PRN PAIN MDD=3, 30 DAY(S), 90, REFILLS 0 TRIGGER POINT 3 + MYRNAMANISHA Sotelo 03/01/2017 3:30:20 PM > LOW BACK NOTES: ON EFFIENT FOR BLOOD THINNER - DO NOT STOP FOR INJECTIONS. CLINICAL NOTES: ISTOP REGISTRY REVIEWED AND DEMNOSTRATES COMPLLIANCE. DOES NOT BRING IN HYDROCODONE. STES THAT HE IS ABLE TO US IT LESS LEFREQUENTLY WHEN THE TRIGGER POINTS ARE ACTIVE LY BEING TREATED BUT WHEN THE INJECTIONS WEAR OFF HE INCRESES HIS PAIN MEDS. DID DISCUSS WITH HIM THAT I WILL NOT BE INCREASING HIS HYDROCODONE. RECENT URINE TOXICOLOGY REVIEWED. NO UNAUTHORIZED MEDICATIONS. NO ILLICIT SUBSTANCES AND PRESCRIBED MEDICATIONS WERE PRESENT. PREVENTIVE MEDICINE DISCUSSED PRE PROCEDURE CARE AND TPI / PT EXPRESSED UNDERSTANDING. PROCEDURE CODES FA211 ESTABILISHED PATIENT [facility] CHARGE DISPOSITION & COMMUNICATION FOLLOW UP AFTER INJECTION (REASON: CHECK AUTH FOR TPI) ELECTRONICALLY SIGNED BY JUAN MIGUEL CLEMENT ON 03/14/2017 AT 12:55 PM EDT DISCLAIMER : THIS IS A VISIT SUMMARY EXTRACTED FROM THE [employer] CHART. IT IS NOT A COPY OF THE [employer] PROGRESS NOTE. MTDD
== END ==
LOC: M PAIN 14:00
PROVIDERS: ATTEND Nurse Practitioner Family
DX: G89.29 Other chronic pain (principal); M79.1 Myalgia; Z79.891 Long term (current) use of opiate analgesic; I10 Essential (primary) hypertension; I25.2 Old myocardial infarction; Z91.041 Radiographic dye allergy status; Z79.82 Long term (current) use of aspirin; Z79.899 Other long term (current) drug therapy

== ENCOUNTER → 2017-03-29 | Outpatient (CLI) | payer OTHER ==
[~2017-03-29] MED LIST changes: +BUPIVACAINE HCL 0.25% 10 ML VIAL As Ordered ONE; +BUPIVACAINE HCL 0.25% 30 ML VIAL As Ordered ONE; +TRIAMCINOLONE ACETONIDE SUSP 40 MG/ML VIAL (J3301) As Ordered ONE; +diazePAM 5 MG TAB As Ordered ONE; +oxyCODONE 5MG TAB As Ordered ONE
--- NOTE | 2017-03-30 00:33 | ECWPNPC ---
PATIENT NAME: ROME DODSON : 1960 GENDER: MALE VISIT DATE: 03/29/2017 DISCHARGE DATE: 03/29/171657 VISIT LOCKED DATE TIME: PHYSICIAN: ROBERT QUILES RESOURCE: ROBERT QUILES REASON FOR APPOINTMENT 1. TPI-LOW BACK HISTORY OF PRESENT ILLNESS HISTORY OF PRESENT ILLNESS: PAIN THE PATIENT DESCRIBES THE PAIN... FALL RISK SCREENING: SCREENING :TWO OR MORE FALLS WITH INJURY IN THE PAST YEAR CURRENT MEDICATIONS TAKING ASPIRIN ADULT LOW STRENGTH 81 MG TABLETS 1 TABLET ORALLY ONCE A DAY, NOTES: 1000 TAKING ATORVASTATIN CALCIUM 40 MG TABLET 1 TABLET ORALLY QHS, NOTES: 1000 TAKING SYMBICORT 160-4.5 MCG/ACT AEROSOL 2 PUFFS INHALATION TWICE A DAY, NOTES: 1000 TAKING ISOSORBIDE DINITRATE 60 MG TABLET 1 TABLET ORALLY DAILY, NOTES: 1000 TAKING LISINOPRIL 10 MG TABLET 1 TABLET ORALLY ONCE A DAY, NOTES: 1000 TAKING LORATADINE 10 MG TABLET 1 TABLET ORALLY ONCE A DAY, NOTES: 1000 TAKING METOPROLOL SUCCINATE ER 25 MG TABLET EXTENDED RELEASE 24 HOUR 1 TABLET ORALLY TWICE A DAY, NOTES: `1000 TAKING NITROGLYCERIN 0.4 MG PATCH 24 HOUR 1 PATCH TO SKIN REMOVE AFTER 12 HOURS DAILY, NOTES: 03/28/17@0900 TAKING EFFIENT 10 MG TABLET ORALLY DAILY, NOTES: 1000 TAKING RANEXA 1000 MG TABLET EXTENDED RELEASE 12 HOUR 1 TABLET ORALLY TWICE A DAY, NOTES: 1000 TAKING OMEPRAZOLE 20 MG CAPSULE DELAYED RELEASE 1 CAPSULE ORALLY QD, NOTES: 1000 TAKING TOPIRAMATE 50 MG TABLET 1 TABLET ORALLY TWICE A DAY, NOTES: 1000 TAKING VENTOLIN HFA 200 MG AEROSOL SOLUTION 2 PUFFS NEEDED INHALATION EVERY 4 HRS, NOTES: 1000 TAKING VITAMIN B12 500 MCG TABLET 2 TABLETS ORALLY ONCE A DAY, NOTES: 1000 TAKING MECLIZINE HCL 25 MG CAPSULE ORALLY DIRECTED, NOTES: 1000 TAKING MONTELUKAST SODIUM 10 MG TABLET 1 TABLET IN THE EVENING ORALLY ONCE A DAY, NOTES: 1000 TAKING FOLIC ACID 1 MG TABLET 1 TABLET ORALLY ONCE A DAY, NOTES: 1000 TAKING FERROUS SULFATE 325 MG CAPSULE ORALLY , NOTES: 1000 TAKING GABAPENTIN 300 MG CAPSULE 1 TABLET ORALLY TID, NOTES: 1000 TAKING NORCO 5-325 MG TABLET 1 TABLET ORALLY 8- 12 HRS PRN PAIN MDD=3, NOTES: 1 WEEK AGO TAKING BACLOFEN 10 MG TABLET 1 TABLET WITH FOOD OR MILK ORALLY THREE TIMES A DAY, NOTES: 1000 NOT-TAKING GABAPENTIN 100 MG CAPSULE 2 TABLETS ORALLY 3 TIMES A DAY MEDICATION LIST REVIEWED AND RECONCILED WITH THE PATIENT PAST MEDICAL HISTORY HYPERTENSION CARDIOVASCULAR DISEASE VA X2 ALLERGIES IV DYE: ITCHING AND SWEATING: ALLERGY SOCIAL HISTORY GENERAL: PAIN CLINIC PFS, CLERGY, PUBLIC HEALTH REFERRALS PFS REFERRAL NEEDED?NO CLERGY REFERRAL NEEDED?NO PUBLIC HEALTH REFERRAL NEEDED?NO WAS THE PROVIDER NOTIFIED OF ANY PERTINENT INFO?NO HAS THE PATIENT BEEN EDUCATED REGARDING HIS/HER PLAN OF CARE?YES HAS THE PATIENT BEEN EDUCATED REGARDING PAIN, THE RISK FOR PAIN, THE IMPORTANCE OF EFFECTIVE PAIN MANAGEMENT, AND THE PAIN ASSESSMENT PROCESS?YES PATIENT: IS AWARE THAT THEY ARE RESPONSIBLE AND GUARDIAN OF THE PRESCRIBED MEDICATIONS. REVIEW OF SYSTEMS REVIEWED BY: PROVIDER: . CONSTITUTIONAL: ANY CHANGE IN YOUR MEDICAL CONDITION? NO . CHILLS NO . FEVER NO . INFECTION: DO YOU HAVE NEW INFECTIONS? NO . DO YOU HAVE HISTORY OF MRSA? NO . MUSCULOSKELETAL: ANY NEW PATTERNS OF PAIN OR NUMBNESS? NO . GASTROENTEROLOGY: ANY NEW CHANGE IN BOWEL CONTROL? NO . GENITOURINARY: ANY NEW CHANGE IN BLADDER CONTROL? NO . IS THERE A CHANCE YOU COULD BE ? NO . HEMATOLOGY/LYMPH: DO YOU TAKE ANY BLOOD THINNERS? (FOR EXAMPLE- COUMADIN, PLAVIX, AGGRENOX, PLATEL, PRADAXA, OR XARELTO) NO . WHEN WAS YOUR LAST DOSE? DATE: TIME: 03/29/17 @1000 . NEUROLOGY: HAVE YOU FALLEN IN THE PAST 6 MONTHS? YES . ANY NEW EXTREMITY NUMBNESS OR WEAKNESS? NO . CARDIOLOGY: DO YOU HAVE A PACEMAKER OR DEFIBRILLATOR? YES . RESPIRATORY: HAVE YOU BEEN SICK IN THE PAST WEEK? NO . FEVER NO . FLU LIKE SYMPTOMS? NO . COUGH NO . INTEGUMENTARY: DO YOU HAVE ANY RASHES OR OPEN SORES? NO . ALLERGIC/IMMUNO: ARE YOU ALLERGIC TO SHELLFISH OR IV DYE? YES . ANY NEW ALLERGIES? NO . PSYCHIATRIC: DO YOU HAVE THOUGHTS OF HURTING YOURSELF OR SOMEONE ELSE? NO . ARE YOU ABUSED, NEGLECTED, OR IN AN UNSAFE ENVIRONMENT? NO . ENDOCRINOLOGY: ARE YOU DIABETIC? NO . OTHER: DO YOU NEED ANY PRESCRIPTIONS? YES . IF YES, PLEASE LIST: ____GABAPENTIN, BACLOFEN . ANY NEW PROBLEMS WITH YOUR MEDICATIONS? NO . WHEN DID YOU LAST EAT? ____03/28/17 . WHEN DID YOU LAST DRINK? ____07 . WHAT DID YOU LAST DRINK? _BLACK COFFEE___ . NAME OF PERSON DRIVING YOU HOME? ____ . DO YOU HAVE ANY OTHER QUESTIONS OR CONCERNS NO . VITAL SIGNS WT 196.4 LBS, HT 72 IN, BMI 26.63 INDEX, BP 125/92 MM HG, HR 81 /MIN, RR 18 /MIN, TEMP 98.5 F, OXYGEN SAT % 95%, NA INITIALS SC 13:59, REVIEWED BY: VD. ASSESSMENTS MYALGIA - M79.1 (PRIMARY) PROCEDURES PN TRIGGER POINT INJECTION WITH STEROIDS PRE PROCEDURE DIAGNOSIS 1. MYALGIA 2. PAIN AT BILATERAL LOWER BACK AREA POST PROCEDURE DIAGNOSIS 1. MYALGIA 2. PAIN AT BILATERAL LOWER BACK AREA PROCEDURE TRIGGER POINT INJECTION AT BILATERAL LOWER BACK AREA SURGEON DR. ROBERT QUILES SUPERVISOR OPEN HEARTH STOCKYARD NONE ANESTHESIA LOCAL PRE PROCEDURE NOTE THE PATIENT HAS A HISTORY OF CHRONIC PAIN AT THE RIGHT AND LEFT LOWER BACK AREA. I EVALUATE THE PATIENT AND REVIEWED THE CHART. THERE IS EVIDENCE OF BANDS OF TISSUE WITH RESTRICTION OF MOVEMENT AND PRESENCE OF TRIGGER POINT AT THE AFFECTED AREA. I WENT OVER THE RISKS, ALTERNATIVES, AND BENEFITS ASSOCIATED WITH THIS PROCEDURE. THE PATIENT WOULD LIKE TO PROCEED AND GIVE CONSENT TO PERFORMED THE PROCEDURE. THE PATIENT DENIES UNEXPLAINABLE WEIGHT LOSS, FEVER, CHILLS, OR NEW CHANGES IN URINARY OR BOWEL CONTROL DESCRIPTION OF PROCEDURE THE PATIENT WAS BROUGHT TO THE PROCEDURE ROOM AND PLACED IN THE SITTING POSITION. THE AREA WAS CLEANED WITH ALCOHOL. THE PROCEDURE WAS DONE USING ASEPTIC STERILE TECHNIQUE. I CHECKED LATERALITY AND THE LEVEL WHERE THE PROCEDURE WAS GOING TO BE PERFORMED WITH THE PATIENT AND THE SUPPORTING STAFF AT THE MOMENT OF THE TIME OUT IN THE PROCEDURE ROOM. USING A 25-GAUGE NEEDLE, TRIGGER POINTS WERE INJECTED AT THE RIGHT AND LEFT LOWER BACK AREA WITH A TOTAL OF 40 ML OF BUPIVACAINE 0.25% AND KENALOG 40 MG. THERE WAS NO EVIDENCE OF BLOOD, PARESTHESIA OR CEREBROSPINAL FLUID DURING THE PROCEDURE. THE PATIENT WAS SENT TO THE RECOVERY ROOM. THE PATIENT WAS MOVING THE EXTREMITIES AND DOING WELL. THERE WAS NO COMPLICATION DURING THE PROCEDURE POST PROCEDURE NOTE THE PATIENT WILL BE SEEN IN A FOLLOW UP IN THE NEXT FEW WEEKS. INSTRUCTIONS WERE GIVEN, QUESTIONS WERE ANSWERED, AND THE PATIENT EXPRESSED UNDERSTANDING AND AGREES WITH THE PLAN. I, KELTON AHGEN, DOCUMENTED THE ABOVE INFORMATION ACTING A SCRIBE FOR DR. QUILES. I HAVE REVIEWED THE ABOVE DOCUMENT, WRITTEN BY KELTON NOWAK AND I VERIFY THAT IT IS ACCURATE PROCEDURE CODES 18913 INJ TRIGGER POINT / MUSCL DISPOSITION & COMMUNICATION FOLLOW UP 3 WEEKS ELECTRONICALLY SIGNED BY ORBERT QUILES MD ON 03/29/2017 AT 06:27 PM EDT DISCLAIMER : THIS IS A VISIT SUMMARY EXTRACTED FROM THE [employer] CHART. IT IS NOT A COPY OF THE [employer] PROGRESS NOTE. MTDD
== END ==
LOC: M PAIN 14:00
PROVIDERS: ATTEND Anesthesiology
DX: G89.29 Other chronic pain (principal); M79.1 Myalgia; I10 Essential (primary) hypertension; I25.2 Old myocardial infarction; Z79.82 Long term (current) use of aspirin; Z79.891 Long term (current) use of opiate analgesic; Z79.899 Other long term (current) drug therapy; Z91.041 Radiographic dye allergy status
CPT/HCPCS: 20552; J3301

== ENCOUNTER → 2017-04-09 | Outpatient (CLI) | payer OTHER ==
[~2017-04-09] MED LIST changes: -BUPIVACAINE HCL 0.25% 10 ML VIAL As Ordered ONE; -BUPIVACAINE HCL 0.25% 30 ML VIAL As Ordered ONE; -TRIAMCINOLONE ACETONIDE SUSP 40 MG/ML VIAL (J3301) As Ordered ONE; -diazePAM 5 MG TAB As Ordered ONE; -oxyCODONE 5MG TAB As Ordered ONE
--- NOTE | 2017-05-10 00:19 | ECWPNPC ---
PATIENT NAME: ROME DODSON : 1960 GENDER: MALE VISIT DATE: 04/09/2017 DISCHARGE DATE: 04/09/17 1422 VISIT LOCKED DATE TIME: PHYSICIAN: MANISHA BRENNER RESOURCE: MANISHA BRENNER REASON FOR APPOINTMENT 1. POST TPI HISTORY OF PRESENT ILLNESS HISTORY OF PRESENT ILLNESS: PAIN THE PATIENT DESCRIBES THE PAIN... FALL RISK SCREENING: SCREENING :NO FALLS IN THE PAST YEAR TODAY'S VISIT: NOTES: RATES PAIN TDAY 04/20. IS S/P TPI COMPLETED 03/29/17. NOTES PAIN IMPROVEMENT OF 60-80%. IN LOW BACK. . CURRENT MEDICATIONS TAKING FUROSEMIDE 40 MG TABLET 1 TABLET ORALLY ONCE A DAY TAKING ASPIRIN ADULT LOW STRENGTH 81 MG TABLETS 1 TABLET ORALLY ONCE A DAY TAKING ATORVASTATIN CALCIUM 40 MG TABLET 1 TABLET ORALLY QHS TAKING SYMBICORT 160-4.5 MCG/ACT AEROSOL 2 PUFFS INHALATION TWICE A DAY TAKING ISOSORBIDE DINITRATE 60 MG TABLET 1 TABLET ORALLY DAILY TAKING LISINOPRIL 10 MG TABLET 1 TABLET ORALLY ONCE A DAY TAKING LORATADINE 10 MG TABLET 1 TABLET ORALLY ONCE A DAY TAKING METOPROLOL SUCCINATE ER 25 MG TABLET EXTENDED RELEASE 24 HOUR 1 TABLET ORALLY TWICE A DAY TAKING NITROGLYCERIN 0.4 MG PATCH 24 HOUR 1 PATCH TO SKIN REMOVE AFTER 12 HOURS DAILY TAKING EFFIENT 10 MG TABLET ORALLY DAILY TAKING RANEXA 1000 MG TABLET EXTENDED RELEASE 12 HOUR 1 TABLET ORALLY TWICE A DAY TAKING OMEPRAZOLE 20 MG CAPSULE DELAYED RELEASE 1 CAPSULE ORALLY QD TAKING TOPIRAMATE 50 MG TABLET 1 TABLET ORALLY TWICE A DAY TAKING VENTOLIN HFA 200 MG AEROSOL SOLUTION 2 PUFFS NEEDED INHALATION EVERY 4 HRS TAKING VITAMIN B12 500 MCG TABLET 2 TABLETS ORALLY ONCE A DAY TAKING MECLIZINE HCL 25 MG CAPSULE ORALLY DIRECTED TAKING MONTELUKAST SODIUM 10 MG TABLET 1 TABLET IN THE EVENING ORALLY ONCE A DAY TAKING FOLIC ACID 1 MG TABLET 1 TABLET ORALLY ONCE A DAY TAKING FERROUS SULFATE 325 MG CAPSULE ORALLY TAKING NORCO 5-325 MG TABLET 1 TABLET ORALLY 8- 12 HRS PRN PAIN MDD=3 TAKING GABAPENTIN 300 MG CAPSULE 1 TABLET ORALLY TID TAKING BACLOFEN 10 MG TABLET 1 TABLET WITH FOOD OR MILK ORALLY THREE TIMES A DAY TAKING GABAPENTIN 100 MG CAPSULE 2 TABLETS ORALLY 3 TIMES A DAY MEDICATION LIST REVIEWED AND RECONCILED WITH THE PATIENT PAST MEDICAL HISTORY HYPERTENSION CARDIOVASCULAR DISEASE OR X2 ALLERGIES IV DYE: ITCHING AND SWEATING: ALLERGY SOCIAL HISTORY GENERAL: TOBACCO USE ARE YOU A:FORMER SMOKER HOW LONG HAS IT BEEN SINCE YOU LAST SMOKED?6-12 MONTHS ALCOHOL SCREENING POINTS1 INTERPRETATIONNEGATIVE RECREATIONAL DRUG USE DRUG USE?NO CAFFEINE CAFFEINE USE?YES PT STATES DRINKS LOTS HOW OFTEN AND HOW MUCH? DRINKS LOTS EVERY DAY LEARNING BARRIERS / SPECIAL NEEDS BARRIERS TO LEARNING?NO HEARING IMPAIRED?NO VISION IMPAIRED?YES : WEARS CORRECTIVE LENSES READINESS TO LEARN?YES LEARNING PREFERENCES?NO SPECIAL DEVICES?YES : OCCASIONALLY A CANE SINCE HIS STROKE IN NOVEMBER PAIN CLINIC PFS, CLERGY, PUBLIC HEALTH REFERRALS PFS REFERRAL NEEDED?NO CLERGY REFERRAL NEEDED?NO PUBLIC HEALTH REFERRAL NEEDED?NO WAS THE PROVIDER NOTIFIED OF ANY PERTINENT INFO?NO HAS THE PATIENT BEEN EDUCATED REGARDING HIS/HER PLAN OF CARE?YES HAS THE PATIENT BEEN EDUCATED REGARDING PAIN, THE RISK FOR PAIN, THE IMPORTANCE OF EFFECTIVE PAIN MANAGEMENT, AND THE PAIN ASSESSMENT PROCESS?YES PATIENT: IS AWARE THAT THEY ARE RESPONSIBLE AND GUARDIAN OF THE PRESCRIBED MEDICATIONS. REVIEW OF SYSTEMS REVIEWED BY: PROVIDER: MANISHA BROWN . CONSTITUTIONAL: ANY CHANGE IN YOUR MEDICAL CONDITION? YES, EDEMA OF BOTH LOWER LEGS PLACED ON FLUID PILL AND ANTIBIOTIC BY DR GOODWIN YESTERDAY 04-08-17. . CHILLS NO . FEVER NO . INFECTION: DO YOU HAVE NEW INFECTIONS? NO . DO YOU HAVE HISTORY OF MRSA? NO . MUSCULOSKELETAL: ANY NEW PATTERNS OF PAIN OR NUMBNESS? NO . GASTROENTEROLOGY: ANY NEW CHANGE IN BOWEL CONTROL? NO . GENITOURINARY: ANY NEW CHANGE IN BLADDER CONTROL? NO . IS THERE A CHANCE YOU COULD BE ? NO . HEMATOLOGY/LYMPH: DO YOU TAKE ANY BLOOD THINNERS? (FOR EXAMPLE- COUMADIN, PLAVIX, AGGRENOX, PLATEL, PRADAXA, OR XARELTO) YES, EFFIENT . WHEN WAS YOUR LAST DOSE? DATE: TIME: 04-09-17 1000 . NEUROLOGY: HAVE YOU FALLEN IN THE PAST 6 MONTHS? YES . ANY NEW EXTREMITY NUMBNESS OR WEAKNESS? NO . CARDIOLOGY: DO YOU HAVE A PACEMAKER OR DEFIBRILLATOR? YES, PACEMAKER/DEFIB . ANGINA YES . RESPIRATORY: HAVE YOU BEEN SICK IN THE PAST WEEK? NO . FEVER NO . FLU LIKE SYMPTOMS? NO . COUGH NO . INTEGUMENTARY: DO YOU HAVE ANY RASHES OR OPEN SORES? NO . ALLERGIC/IMMUNO: ARE YOU ALLERGIC TO SHELLFISH OR IV DYE? YES, IV DYE . ANY NEW ALLERGIES? NO . PSYCHIATRIC: DO YOU HAVE THOUGHTS OF HURTING YOURSELF OR SOMEONE ELSE? NO . ARE YOU ABUSED, NEGLECTED, OR IN AN UNSAFE ENVIRONMENT? NO . ENDOCRINOLOGY: ARE YOU DIABETIC? NO . OTHER: DO YOU NEED ANY PRESCRIPTIONS? NO . IF YES, PLEASE LIST: ____ . ANY NEW PROBLEMS WITH YOUR MEDICATIONS? NO . WHEN DID YOU LAST EAT? ____ . WHEN DID YOU LAST DRINK? ____ . WHAT DID YOU LAST DRINK? ____ . NAME OF PERSON DRIVING YOU HOME? ____ . DO YOU HAVE ANY OTHER QUESTIONS OR CONCERNS NO . VITAL SIGNS WT 197.6 LBS, HT 72 IN, BMI 26.80 INDEX, BP 134/91 MM HG, HR 85 /MIN, RR 18 /MIN, TEMP 99.3 F, OXYGEN SAT % 92%, NA INITIALS CM 1320. EXAMINATION GENERAL EXAMINATION: PSYCHALERT , ORIENTED X 3 , APPROPRIATE MOOD AND AFFECT . LUNGS:BIBASILAR RALES . HEART:HEART RATE IRREGULAR . MUSCULOSKELETAL:MUSCLE STRENGTH TESTING 5/5 BILATERAL LOWER EXTREMITIES. SLOW TO RISE TO STANDING POSITION. GAIT NONANTALGIC. TENDER WITH PALPATION OVER LUMBAR PARAVERTEBRAL MUSCLES. , TRIGGER POINTS AND TIGHT FIBROUS BANDS IDENTIFIED. DECREASED ROM NOTED WITH FLEX/EXTENSION OF THE SPINE. ASSESSMENTS MYALGIA - M79.1 (PRIMARY) CHRONIC PRESCRIPTION OPIATE USE - Z79.891 TREATMENT MYALGIA TRIGGER POINT 3 + MANISHA NORRIS 04/09/2017 2:04:06 PM > LOW BACK NOTES: CALL DR GOODWIN AND TELL HIM AGAIN ABOUT BLACK STOOLS.DO NOT STOP EFFIENT FOR TRIGGER POINTSCONTINUE CURRENT MEDSCUT BACK ON SALT,TRIGGER POINT INJECTION MATERIAL WAS PRINTED. CLINICAL NOTES: [employer] REGISTRY REVIEWED AND DEMNOSTRATES COMPLLIANCE. (REF # [id number]) DOES NOT BRING IN MEDICATIONS. RECENT URINE TOXICOLOGY REVIEWED. NO UNAUTHORIZED MEDICATIONS. NO ILLICIT SUBSTANCES AND PRESCRIBED MEDICATIONS WERE PRESENT. PROCEDURE CODES FA211 ESTABILISHED PATIENT [facility] FACILITY CHARGE DISPOSITION & COMMUNICATION FOLLOW UP SCHED FOR TPI AFTER 04/28/17 (REASON: CHECK AUTH FOR TPI) ELECTRONICALLY SIGNED BY JUAN MIGUEL CLEMENT ON 05/09/2017 AT 08:36 PM EDT DISCLAIMER : THIS IS A VISIT SUMMARY EXTRACTED FROM THE [employer] CHART. IT IS NOT A COPY OF THE [facility] PROGRESS NOTE. MTDD
== END ==
LOC: M PAIN 13:30
PROVIDERS: ATTEND Nurse Practitioner Family
DX: G89.29 Other chronic pain (principal); M79.1 Myalgia; I11.9 Hypertensive heart disease without heart failure; I25.2 Old myocardial infarction; I20.9 Angina pectoris, unspecified; Z91.041 Radiographic dye allergy status; Z79.01 Long term (current) use of anticoagulants; Z79.82 Long term (current) use of aspirin; Z79.891 Long term (current) use of opiate analgesic; Z79.899 Other long term (current) drug therapy; Z95.0 Presence of cardiac pacemaker; Z87.891 Personal history of nicotine dependence

== ENCOUNTER → 2017-04-21 | Outpatient (CLI) | payer OTHER ==
[~2017-04-21] MED LIST changes: +BUPIVACAINE HCL 0.25% 10 ML VIAL As Ordered ONE; +BUPIVACAINE HCL 0.25% 30 ML VIAL As Ordered ONE; +TRIAMCINOLONE ACETONIDE SUSP 40 MG/ML VIAL (J3301) As Ordered ONE; +diazePAM 5 MG TAB As Ordered ONE; +oxyCODONE 5MG TAB As Ordered ONE
--- NOTE | 2017-04-27 01:12 | ECWPNPC ---
PATIENT NAME: ROME DODSON : 1960 GENDER: MALE VISIT DATE: 04/21/2017 DISCHARGE DATE: 04/21/170 VISIT LOCKED DATE TIME: PHYSICIAN: ROBERT QUILES RESOURCE: ROBERT QUILES HISTORY OF PRESENT ILLNESS HISTORY OF PRESENT ILLNESS: PAIN THE PATIENT DESCRIBES THE PAIN... FALL RISK SCREENING: SCREENING :NO FALLS IN THE PAST YEAR CURRENT MEDICATIONS TAKING FUROSEMIDE 40 MG TABLET 1 TABLET ORALLY ONCE A DAY, NOTES: 04/21/17999 TAKING ASPIRIN ADULT LOW STRENGTH 81 MG TABLETS 1 TABLET ORALLY ONCE A DAY, NOTES: 04/21/17 1000 TAKING ATORVASTATIN CALCIUM 40 MG TABLET 1 TABLET ORALLY QHS, NOTES: 04/21/17999 TAKING SYMBICORT 160-4.5 MCG/ACT AEROSOL 2 PUFFS INHALATION TWICE A DAY, NOTES: 04/21/17999 TAKING ISOSORBIDE DINITRATE 60 MG TABLET 1 TABLET ORALLY DAILY, NOTES: 04/21/17999 TAKING LISINOPRIL 10 MG TABLET 1 TABLET ORALLY ONCE A DAY, NOTES: 04/21/17999 TAKING LORATADINE 10 MG TABLET 1 TABLET ORALLY ONCE A DAY, NOTES: 04/21/17999 TAKING METOPROLOL SUCCINATE ER 25 MG TABLET EXTENDED RELEASE 24 HOUR 1 TABLET ORALLY TWICE A DAY, NOTES: 04/21/17999 TAKING NITROGLYCERIN 0.4 MG PATCH 24 HOUR 1 PATCH TO SKIN REMOVE AFTER 12 HOURS DAILY, NOTES: 04/21/17999 TAKING EFFIENT 10 MG TABLET ORALLY DAILY, NOTES: 04/21/17999 TAKING RANEXA 1000 MG TABLET EXTENDED RELEASE 12 HOUR 1 TABLET ORALLY TWICE A DAY, NOTES: 04/21/17999 TAKING OMEPRAZOLE 20 MG CAPSULE DELAYED RELEASE 1 CAPSULE ORALLY QD, NOTES: 04/21/17 1000 TAKING TOPIRAMATE 50 MG TABLET 1 TABLET ORALLY TWICE A DAY, NOTES: 04/21/17 1000 TAKING VENTOLIN HFA 200 MG AEROSOL SOLUTION 2 PUFFS NEEDED INHALATION EVERY 4 HRS, NOTES: 04/20/17 2100 TAKING VITAMIN B12 500 MCG TABLET 2 TABLETS ORALLY ONCE A DAY, NOTES: 04/21/17 1000 TAKING MECLIZINE HCL 25 MG CAPSULE ORALLY DIRECTED, NOTES: 04/21/17 1000 TAKING MONTELUKAST SODIUM 10 MG TABLET 1 TABLET IN THE EVENING ORALLY ONCE A DAY, NOTES: 10/10/17 2200 TAKING FOLIC ACID 1 MG TABLET 1 TABLET ORALLY ONCE A DAY, NOTES: 04/21/17 1000 TAKING FERROUS SULFATE 325 MG CAPSULE ORALLY , NOTES: 04/21/17 1000 TAKING NORCO 5-325 MG TABLET 1 TABLET ORALLY 8- 12 HRS PRN PAIN MDD=3, NOTES: 04/19/17 0900 TAKING GABAPENTIN 300 MG CAPSULE 1 TABLET ORALLY TID, NOTES: 04/21/17 1000 TAKING BACLOFEN 10 MG TABLET 1 TABLET WITH FOOD OR MILK ORALLY THREE TIMES A DAY, NOTES: 04/21/17 1000 TAKING GABAPENTIN 100 MG CAPSULE 2 TABLETS ORALLY 3 TIMES A DAY, NOTES: 04/21/17 1000 TAKING CEPHALEXIN 500 MG CAPSULE 1 CAPSULE ORALLY EVERY 12 HRS MEDICATION LIST REVIEWED AND RECONCILED WITH THE PATIENT PAST MEDICAL HISTORY HYPERTENSION CARDIOVASCULAR DISEASE NE X2 ALLERGIES IV DYE: ITCHING AND SWEATING: ALLERGY REVIEW OF SYSTEMS REVIEWED BY: PROVIDER: . CONSTITUTIONAL: ANY CHANGE IN YOUR MEDICAL CONDITION? NO . CHILLS NO . FEVER NO . INFECTION: DO YOU HAVE NEW INFECTIONS? YES EAR INFECTION, ON ANTIOBIOTICS FOR 10 DAY COURSE, NOW ON DAY 7 . DO YOU HAVE HISTORY OF MRSA? NO . MUSCULOSKELETAL: ANY NEW PATTERNS OF PAIN OR NUMBNESS? NO . GASTROENTEROLOGY: ANY NEW CHANGE IN BOWEL CONTROL? NO . GENITOURINARY: ANY NEW CHANGE IN BLADDER CONTROL? NO . IS THERE A CHANCE YOU COULD BE ? NO . HEMATOLOGY/LYMPH: DO YOU TAKE ANY BLOOD THINNERS? (FOR EXAMPLE- COUMADIN, PLAVIX, AGGRENOX, PLATEL, PRADAXA, OR XARELTO) YES . WHEN WAS YOUR LAST DOSE? DATE: TIME: EFFIENT LAST TAKEN 04/21/17 1000 . NEUROLOGY: HAVE YOU FALLEN IN THE PAST 6 MONTHS? NO . ANY NEW EXTREMITY NUMBNESS OR WEAKNESS? NO . CARDIOLOGY: DO YOU HAVE A PACEMAKER OR DEFIBRILLATOR? YES . RESPIRATORY: HAVE YOU BEEN SICK IN THE PAST WEEK? NO . FEVER NO . FLU LIKE SYMPTOMS? NO . COUGH NO . INTEGUMENTARY: DO YOU HAVE ANY RASHES OR OPEN SORES? NO . ALLERGIC/IMMUNO: ARE YOU ALLERGIC TO SHELLFISH OR IV DYE? YES . ANY NEW ALLERGIES? NO . PSYCHIATRIC: DO YOU HAVE THOUGHTS OF HURTING YOURSELF OR SOMEONE ELSE? NO . ARE YOU ABUSED, NEGLECTED, OR IN AN UNSAFE ENVIRONMENT? NO . ENDOCRINOLOGY: ARE YOU DIABETIC? NO . OTHER: DO YOU NEED ANY PRESCRIPTIONS? NO . IF YES, PLEASE LIST: ____ . ANY NEW PROBLEMS WITH YOUR MEDICATIONS? NO . WHEN DID YOU LAST EAT? ____04/20/171999 . WHEN DID YOU LAST DRINK? ____04/21/17 0900 . WHAT DID YOU LAST DRINK? ____BLACK COFFEE . NAME OF PERSON DRIVING YOU HOME? ____CAROL . DO YOU HAVE ANY OTHER QUESTIONS OR CONCERNS NO . VITAL SIGNS WT 190 LBS, HT 72 IN, BMI 25.77 INDEX, BP 113/78 MM HG, HR 100 /MIN, RR 18 /MIN, TEMP 97.6 F, OXYGEN SAT % 93%, SAFE IN ENV? (Y/N) YES, REVIEWED BY: ASSESSMENTS MYALGIA - M79.1 (PRIMARY) PROCEDURES PN TRIGGER POINT INJECTION WITH STEROIDS PRE PROCEDURE DIAGNOSIS 1. MYALGIA 2. PAIN AT BILATERAL LOWER BACK AREA POST PROCEDURE DIAGNOSIS 1. MYALGIA 2. PAIN AT BILATERAL LOWER BACK AREA PROCEDURE TRIGGER POINT INJECTION AT BILATERAL LOWER BACK AREA SURGEON DR. ROBERT QUILES BUYING AGENT NONE ANESTHESIA LOCAL PRE PROCEDURE NOTE THE PATIENT HAS A HISTORY OF CHRONIC PAIN AT THE RIGHT AND LEFT LOWER BACK AREA. I EVALUATE THE PATIENT AND REVIEWED THE CHART. THERE IS EVIDENCE OF BANDS OF TISSUE WITH RESTRICTION OF MOVEMENT AND PRESENCE OF TRIGGER POINT AT THE AFFECTED AREA. I WENT OVER THE RISKS, ALTERNATIVES, AND BENEFITS ASSOCIATED WITH THIS PROCEDURE. THE PATIENT WOULD LIKE TO PROCEED AND GIVE CONSENT TO PERFORMED THE PROCEDURE. THE PATIENT DENIES UNEXPLAINABLE WEIGHT LOSS, FEVER, CHILLS, OR NEW CHANGES IN URINARY OR BOWEL CONTROL DESCRIPTION OF PROCEDURE THE PATIENT WAS BROUGHT TO THE PROCEDURE ROOM AND PLACED IN THE SITTING POSITION. THE AREA WAS CLEANED WITH ALCOHOL. THE PROCEDURE WAS DONE USING ASEPTIC STERILE TECHNIQUE. I CHECKED LATERALITY AND THE LEVEL WHERE THE PROCEDURE WAS GOING TO BE PERFORMED WITH THE PATIENT AND THE SUPPORTING STAFF AT THE MOMENT OF THE TIME OUT IN THE PROCEDURE ROOM. USING A 25-GAUGE NEEDLE, TRIGGER POINTS WERE INJECTED AT THE RIGHT AND LEFT LOWER BACK AREA WITH A TOTAL OF 40 ML OF BUPIVACAINE 0.25% AND KENALOG 40 MG. THERE WAS NO EVIDENCE OF BLOOD, PARESTHESIA OR CEREBROSPINAL FLUID DURING THE PROCEDURE. THE PATIENT WAS SENT TO THE RECOVERY ROOM. THE PATIENT WAS MOVING THE EXTREMITIES AND DOING WELL. THERE WAS NO COMPLICATION DURING THE PROCEDURE POST PROCEDURE NOTE THE PATIENT WILL BE SEEN IN A FOLLOW UP IN THE NEXT FEW WEEKS. INSTRUCTIONS WERE GIVEN, QUESTIONS WERE ANSWERED, AND THE PATIENT EXPRESSED UNDERSTANDING AND AGREES WITH THE PLAN. I, KELTON HAGEN, DOCUMENTED THE ABOVE INFORMATION ACTING A SCRIBE FOR DR. QUILES. I HAVE REVIEWED THE ABOVE DOCUMENT, WRITTEN BY KELTON NOWAK AND I VERIFY THAT IT IS ACCURATE PROCEDURE CODES 31018 INJ TRIGGER POINT / MUSCL DISPOSITION & COMMUNICATION FOLLOW UP 3 WEEKS ELECTRONICALLY SIGNED BY ROBERT QUILES MD ON 04/26/2017 AT 02:44 AM EDT DISCLAIMER : THIS IS A VISIT SUMMARY EXTRACTED FROM THE [employer] CHART. IT IS NOT A COPY OF THE [employer] PROGRESS NOTE. LARON
== END ==
LOC: M PAIN 13:45
PROVIDERS: ATTEND Anesthesiology
DX: G89.29 Other chronic pain (principal); M79.1 Myalgia; I10 Essential (primary) hypertension; I25.2 Old myocardial infarction; Z91.041 Radiographic dye allergy status; Z79.82 Long term (current) use of aspirin; Z79.891 Long term (current) use of opiate analgesic; Z79.899 Other long term (current) drug therapy; Z79.01 Long term (current) use of anticoagulants
CPT/HCPCS: 20552; J3301

== ENCOUNTER → 2017-05-05 | Outpatient (CLI) | payer OTHER ==
[~2017-05-05] MED LIST changes: -BUPIVACAINE HCL 0.25% 10 ML VIAL As Ordered ONE; -BUPIVACAINE HCL 0.25% 30 ML VIAL As Ordered ONE; -TRIAMCINOLONE ACETONIDE SUSP 40 MG/ML VIAL (J3301) As Ordered ONE; -diazePAM 5 MG TAB As Ordered ONE; -oxyCODONE 5MG TAB As Ordered ONE
--- NOTE | 2017-05-31 00:42 | ECWPNPC ---
PATIENT NAME: ROME DODSON : 1960 GENDER: MALE VISIT DATE: 05/05/2017 DISCHARGE DATE: 05/05/171416 VISIT LOCKED DATE TIME: PHYSICIAN: MANISHA BRENNER RESOURCE: MANISHA BRENNER REASON FOR APPOINTMENT 1. POST TPI HISTORY OF PRESENT ILLNESS HISTORY OF PRESENT ILLNESS: PAIN THE PATIENT DESCRIBES THE PAIN... FALL RISK SCREENING: SCREENING :NO FALLS IN THE PAST YEAR TODAY'S VISIT: NOTES: S/P TRIGGER POINTS TO LOW BACK WITH STEROIDS. STATES THESE WERE HELPFUL BUT DON'T SEEM TO BE LASTING LONG. ALSO NOTES PAIN MEDS ARE NOT WORKING WELL. STATES PAIN IS OVER THE PAIN SCALE.. CURRENT MEDICATIONS TAKING FUROSEMIDE 40 MG TABLET 1 TABLET ORALLY ONCE A DAY TAKING ASPIRIN ADULT LOW STRENGTH 81 MG TABLETS 1 TABLET ORALLY ONCE A DAY TAKING ATORVASTATIN CALCIUM 40 MG TABLET 1 TABLET ORALLY QHS TAKING SYMBICORT 160-4.5 MCG/ACT AEROSOL 2 PUFFS INHALATION TWICE A DAY TAKING ISOSORBIDE DINITRATE 60 MG TABLET 1 TABLET ORALLY DAILY TAKING LISINOPRIL 10 MG TABLET 1 TABLET ORALLY ONCE A DAY TAKING LORATADINE 10 MG TABLET 1 TABLET ORALLY ONCE A DAY TAKING METOPROLOL SUCCINATE ER 25 MG TABLET EXTENDED RELEASE 24 HOUR 1 TABLET ORALLY TWICE A DAY TAKING NITROGLYCERIN 0.4 MG PATCH 24 HOUR 1 PATCH TO SKIN REMOVE AFTER 12 HOURS DAILY TAKING EFFIENT 10 MG TABLET ORALLY DAILY TAKING RANEXA 1000 MG TABLET EXTENDED RELEASE 12 HOUR 1 TABLET ORALLY TWICE A DAY TAKING OMEPRAZOLE 20 MG CAPSULE DELAYED RELEASE 1 CAPSULE ORALLY QD TAKING TOPIRAMATE 50 MG TABLET 1 TABLET ORALLY TWICE A DAY TAKING VENTOLIN HFA 200 MG AEROSOL SOLUTION 2 PUFFS NEEDED INHALATION EVERY 4 HRS TAKING VITAMIN B12 500 MCG TABLET 2 TABLETS ORALLY ONCE A DAY TAKING MECLIZINE HCL 25 MG CAPSULE ORALLY DIRECTED TAKING MONTELUKAST SODIUM 10 MG TABLET 1 TABLET IN THE EVENING ORALLY ONCE A DAY TAKING FOLIC ACID 1 MG TABLET 1 TABLET ORALLY ONCE A DAY TAKING FERROUS SULFATE 325 MG CAPSULE ORALLY TAKING GABAPENTIN 300 MG CAPSULE 1 TABLET ORALLY TID TAKING BACLOFEN 10 MG TABLET 1 TABLET WITH FOOD OR MILK ORALLY THREE TIMES A DAY TAKING GABAPENTIN 100 MG CAPSULE 2 TABLETS ORALLY 3 TIMES A DAY TAKING CEPHALEXIN 500 MG CAPSULE 1 CAPSULE ORALLY EVERY 12 HRS TAKING NORCO 5-325 MG TABLET 1 TABLET ORALLY 8- 12 HRS PRN PAIN MDD=3 TAKING LASIX 40 MG TABLET 1 TABLET ORALLY ONCE A DAY MEDICATION LIST REVIEWED AND RECONCILED WITH THE PATIENT PAST MEDICAL HISTORY HYPERTENSION 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 RESIDUAL RESOLVING ALLERGIES IV DYE: ITCHING AND SWEATING: ALLERGY SURGICAL HISTORY BROKEN BONES REPAIRED TONSILS AICD PLACED 2014 SOCIAL HISTORY GENERAL: TOBACCO USE ARE YOU A:FORMER SMOKER HOW LONG HAS IT BEEN SINCE YOU LAST SMOKED?6-12 MONTHS ALCOHOL SCREENING DID YOU HAVE A DRINK CONTAINING ALCOHOL IN THE PAST YEAR?YES HOW OFTEN DID YOU HAVE A DRINK CONTAINING ALCOHOL IN THE PAST YEAR?MONTHLY OR LESS (1 POINT) HOW MANY DRINKS DID YOU HAVE ON A TYPICAL DAY WHEN YOU WERE DRINKING IN THE PAST YEAR?1 OR 2 (0 POINTS) HOW OFTEN DID YOU HAVE SIX OR MORE DRINKS ON ONE OCCASION IN THE PAST YEAR?NEVER (0 POINTS) POINTS1 INTERPRETATIONNEGATIVE RECREATIONAL DRUG USE DRUG USE?NO CAFFEINE CAFFEINE USE?YES PT STATES DRINKS LOTS HOW OFTEN AND HOW MUCH? DRINKS LOTS EVERY DAY LEARNING BARRIERS / SPECIAL NEEDS BARRIERS TO LEARNING?NO HEARING IMPAIRED?NO VISION IMPAIRED?YES : WEARS CORRECTIVE LENSES READINESS TO LEARN?YES LEARNING PREFERENCES?NO SPECIAL DEVICES?YES : OCCASIONALLY A CANE SINCE HIS STROKE IN NOVEMBER PAIN CLINIC PFS, CLERGY, PUBLIC HEALTH REFERRALS PFS REFERRAL NEEDED?NO CLERGY REFERRAL NEEDED?NO PUBLIC HEALTH REFERRAL NEEDED?NO WAS THE PROVIDER NOTIFIED OF ANY PERTINENT INFO?NO HAS THE PATIENT BEEN EDUCATED REGARDING HIS/HER PLAN OF CARE?YES HAS THE PATIENT BEEN EDUCATED REGARDING PAIN, THE RISK FOR PAIN, THE IMPORTANCE OF EFFECTIVE PAIN MANAGEMENT, AND THE PAIN ASSESSMENT PROCESS?YES PATIENT: IS AWARE THAT THEY ARE RESPONSIBLE AND GUARDIAN OF THE PRESCRIBED MEDICATIONS. REVIEW OF SYSTEMS REVIEWED BY: PROVIDER: . CONSTITUTIONAL: ANY CHANGE IN YOUR MEDICAL CONDITION? NO . CHILLS NO . FEVER NO . INFECTION: DO YOU HAVE NEW INFECTIONS? NO . DO YOU HAVE HISTORY OF MRSA? NO . MUSCULOSKELETAL: ANY NEW PATTERNS OF PAIN OR NUMBNESS? NO . GASTROENTEROLOGY: ANY NEW CHANGE IN BOWEL CONTROL? YES, CONSTIPATION . GENITOURINARY: ANY NEW CHANGE IN BLADDER CONTROL? NO . IS THERE A CHANCE YOU COULD BE ? NO . HEMATOLOGY/LYMPH: DO YOU TAKE ANY BLOOD THINNERS? (FOR EXAMPLE- COUMADIN, PLAVIX, AGGRENOX, PLATEL, PRADAXA, OR XARELTO) YES, EFFIENT . WHEN WAS YOUR LAST DOSE? DATE: TIME: . NEUROLOGY: HAVE YOU FALLEN IN THE PAST 6 MONTHS? YES, PT REPORTS HAVING A STROKIN IN NOVEMBER, PT FELL DURING STROKE. PT STATES HE WAS HOSPITALIZED IN [facility] FOR THIS . ANY NEW EXTREMITY NUMBNESS OR WEAKNESS? NO . CARDIOLOGY: DO YOU HAVE A PACEMAKER OR DEFIBRILLATOR? YES, BOTH . LEG EDEMA MINIMAL - RECENTLY STARTED ON LASIX BY DR ROY . RESPIRATORY: HAVE YOU BEEN SICK IN THE PAST WEEK? NO . FEVER NO . FLU LIKE SYMPTOMS? NO . COUGH NO . INTEGUMENTARY: DO YOU HAVE ANY RASHES OR OPEN SORES? NO . ALLERGIC/IMMUNO: ARE YOU ALLERGIC TO SHELLFISH OR IV DYE? YES, IV DYE . ANY NEW ALLERGIES? NO . PSYCHIATRIC: DO YOU HAVE THOUGHTS OF HURTING YOURSELF OR SOMEONE ELSE? NO . ARE YOU ABUSED, NEGLECTED, OR IN AN UNSAFE ENVIRONMENT? NO . ENDOCRINOLOGY: ARE YOU DIABETIC? NO . OTHER: DO YOU NEED ANY PRESCRIPTIONS? NO . IF YES, PLEASE LIST: ____ . ANY NEW PROBLEMS WITH YOUR MEDICATIONS? YES, PT FEELS THE NORCO IS LESS EFFECTIVE SINCE COOLER WEATHER HAS SET IN, ASKING FOR INCREASE DOSE OR ADJUST MEDICATIONS . WHEN DID YOU LAST EAT? ____ . WHEN DID YOU LAST DRINK? ____ . WHAT DID YOU LAST DRINK? ____ . NAME OF PERSON DRIVING YOU HOME? ____ . DO YOU HAVE ANY OTHER QUESTIONS OR CONCERNS NO, PT DENIES GETTING FLU SHOT THIS SEASON, STATES HE DOESN'T USUALLY GET THEM . VITAL SIGNS WT 195.2 LBS, HT 72 IN, BMI 26.47 INDEX, BP 111/76 MM HG, HR 94 /MIN, RR 18 /MIN, TEMP 97.6 F, OXYGEN SAT % 90%, NA INITIALS AW 1345, REVIEWED BY: EM. EXAMINATION GENERAL EXAMINATION: PSYCHALERT , ORIENTED X 3 , APPROPRIATE MOOD AND AFFECT . LUNGS:BIBASILAR RALES . HEART:HEART RATE IRREGULAR . MUSCULOSKELETAL:MUSCLE STRENGTH TESTING 5/5 BILATERAL LOWER EXTREMITIES. SLOW TO RISE TO STANDING POSITION. GAIT NONANTALGIC. TENDER WITH PALPATION OVER LUMBAR PARAVERTEBRAL MUSCLES. , TRIGGER POINTS AND TIGHT FIBROUS BANDS IDENTIFIED. DECREASED ROM NOTED WITH FLEX/EXTENSION OF THE SPINE. ASSESSMENTS MYALGIA - M79.1 (PRIMARY) CHRONIC PRESCRIPTION OPIATE USE - Z79.891 TREATMENT MYALGIA START OXYCODONE-ACETAMINOPHEN TABLET, 5-325 MG, 1 TABLET NEEDED, ORALLY, EVERY 8 HRS PRN PAIN MDD=3, 30 DAY(S), 90, REFILLS 0 TRIGGER POINT 3 + MYRNAMANISHA Sotelo 05/05/2017 2:07:04 PM > LOW BACK NOTES: DO NOT TAKE HYDROCODONE AND PERCOCET TOGETHER. CLINICAL NOTES: ISTOP REGISTRY REVIEWED AND DEMNOSTRATES COMPLLIANCE. (REF # [id number]) RECENT URINE TOXICOLOGY REVIEWED. NO UNAUTHORIZED MEDICATIONS. NO ILLICIT SUBSTANCES AND PRESCRIBED MEDICATIONS WERE PRESENT. REPORTS THAT HE HAS BEEN TAKING HIS HYDROCODONE 3 TIMES PER DAY. REVIEWED WITH HIM THAT HE MAY TAKE IT ONLY DIRECTED AND THAT NO EXTRA WILL BE SUPPLIED. PROCEDURE CODES FA211 ESTABILISHED PATIENT [facility] CHARGE DISPOSITION & COMMUNICATION FOLLOW UP SCHED TPI FOR MID MAY - F?U AFTER (REASON: CHECK AUTH FOR TPI) ELECTRONICALLY SIGNED BY JUAN MIGUEL CLEMENT ON 05/30/2017 AT 01:29 PM EST DISCLAIMER : THIS IS A VISIT SUMMARY EXTRACTED FROM THE [employer] CHART. IT IS NOT A COPY OF THE [employer] PROGRESS NOTE. ROCIOD
== END ==
LOC: M PAIN 13:45
PROVIDERS: ATTEND Nurse Practitioner Family
DX: M79.1 Myalgia (principal); I51.9 Heart disease, unspecified; I49.9 Cardiac arrhythmia, unspecified; I11.0 Hypertensive heart disease with heart failure; Z79.891 Long term (current) use of opiate analgesic; Z79.899 Other long term (current) drug therapy; Z79.82 Long term (current) use of aspirin; Z87.891 Personal history of nicotine dependence; Z91.041 Radiographic dye allergy status

== ENCOUNTER → 2017-05-10 | Outpatient (CLI) | payer OTHER ==
[~2017-05-10] MED LIST changes: +ATROPINE SULF 1MG/10ML SYRINGE (J0461) As Ordered ONE; +BUPIVACAINE HCL 0.25% 10 ML VIAL As Ordered ONE; +BUPIVACAINE HCL 0.25% 30 ML VIAL As Ordered ONE; +TRIAMCINOLONE ACETONIDE SUSP 40 MG/ML VIAL (J3301) As Ordered ONE; +diazePAM 5 MG TAB As Ordered ONE; +ePHEDrine SULFATE 25 MG/5 ML(5MG/ML) SYRINGE As Ordered ONE; +oxyCODONE 5MG TAB As Ordered ONE
--- NOTE | 2017-05-11 23:31 | ECWPNPC ---
PATIENT NAME: ROME DODSON : 1960 GENDER: MALE VISIT DATE: 05/10/2017 DISCHARGE DATE: 05/10/179 VISIT LOCKED DATE TIME: PHYSICIAN: ROBERT QUILES RESOURCE: ROBERT QUILES REASON FOR APPOINTMENT 1. TPI HISTORY OF PRESENT ILLNESS HISTORY OF PRESENT ILLNESS: PAIN THE PATIENT DESCRIBES THE PAIN... FALL RISK SCREENING: SCREENING :NO FALLS IN THE PAST YEAR CURRENT MEDICATIONS TAKING FUROSEMIDE 40 MG TABLET 1 TABLET ORALLY ONCE A DAY, NOTES: YESTERDAY TAKING ASPIRIN ADULT LOW STRENGTH 81 MG TABLETS 1 TABLET ORALLY ONCE A DAY, NOTES: 05/10/17 1000 TAKING ATORVASTATIN CALCIUM 40 MG TABLET 1 TABLET ORALLY QHS, NOTES: TAKING SYMBICORT 160-4.5 MCG/ACT AEROSOL 2 PUFFS INHALATION TWICE A DAY, NOTES: 99905/10/17 TAKING ISOSORBIDE DINITRATE 60 MG TABLET 1 TABLET ORALLY DAILY, NOTES: 99905/10/17 TAKING LISINOPRIL 10 MG TABLET 1 TABLET ORALLY ONCE A DAY, NOTES: 999 TAKING LORATADINE 10 MG TABLET 1 TABLET ORALLY ONCE A DAY, NOTES: 99905/10/17 TAKING METOPROLOL SUCCINATE ER 25 MG TABLET EXTENDED RELEASE 24 HOUR 1 TABLET ORALLY TWICE A DAY, NOTES: 99905/10/17 TAKING NITROGLYCERIN 0.4 MG PATCH 24 HOUR 1 PATCH TO SKIN REMOVE AFTER 12 HOURS DAILY, NOTES: OFF TAKING EFFIENT 10 MG TABLET ORALLY DAILY, NOTES: 99905/10/17 TAKING RANEXA 1000 MG TABLET EXTENDED RELEASE 12 HOUR 1 TABLET ORALLY TWICE A DAY, NOTES: 99905/10/17 TAKING OMEPRAZOLE 20 MG CAPSULE DELAYED RELEASE 1 CAPSULE ORALLY QD, NOTES: 99905/10/17 TAKING TOPIRAMATE 50 MG TABLET 1 TABLET ORALLY TWICE A DAY, NOTES: 99905/10/17 TAKING VENTOLIN HFA 200 MG AEROSOL SOLUTION 2 PUFFS NEEDED INHALATION EVERY 4 HRS, NOTES: 99905/10/17 TAKING VITAMIN B12 500 MCG TABLET 2 TABLETS ORALLY ONCE A DAY, NOTES: 99905/10/17 TAKING MECLIZINE HCL 25 MG CAPSULE ORALLY DIRECTED, NOTES: 99905/10/17 TAKING MONTELUKAST SODIUM 10 MG TABLET 1 TABLET IN THE EVENING ORALLY ONCE A DAY, NOTES: 99905/10/17 TAKING FOLIC ACID 1 MG TABLET 1 TABLET ORALLY ONCE A DAY, NOTES: 1000 05/10/17 TAKING FERROUS SULFATE 325 MG CAPSULE ORALLY , NOTES: 1000 05/10/17 TAKING GABAPENTIN 300 MG CAPSULE 1 TABLET ORALLY TID, NOTES: 1000 05/10/17 TAKING BACLOFEN 10 MG TABLET 1 TABLET WITH FOOD OR MILK ORALLY THREE TIMES A DAY, NOTES: 1000 05/10/17 TAKING GABAPENTIN 100 MG CAPSULE 2 TABLETS ORALLY 3 TIMES A DAY, NOTES: 1000 05/10/17 TAKING CEPHALEXIN 500 MG CAPSULE 1 CAPSULE ORALLY EVERY 12 HRS, NOTES: 1000 05/10/17 TAKING OXYCODONE-ACETAMINOPHEN 5-325 MG TABLET 1 TABLET NEEDED ORALLY EVERY 8 HRS PRN PAIN MDD=3, NOTES: 05/10/17 1000 NOT-TAKING LASIX 40 MG TABLET 1 TABLET ORALLY ONCE A DAY NOT-TAKING NORCO 5-325 MG TABLET 1 TABLET ORALLY 8- 12 HRS PRN PAIN MDD=3 MEDICATION LIST REVIEWED AND RECONCILED WITH THE PATIENT PAST MEDICAL HISTORY HYPERTENSION CARDIOVASCULAR DISEASE PA X2 STROKE WITH LEFT SIDE RESIDUAL RESOLVING ALLERGIES IV DYE: ITCHING AND SWEATING: ALLERGY SURGICAL HISTORY BROKEN BONES REPAIRED TONSILS AICD PLACED 2013 REVIEW OF SYSTEMS REVIEWED BY: PROVIDER: . CONSTITUTIONAL: ANY CHANGE IN YOUR MEDICAL CONDITION? NO . CHILLS NO . FEVER NO . INFECTION: DO YOU HAVE NEW INFECTIONS? NO . DO YOU HAVE HISTORY OF MRSA? NO . MUSCULOSKELETAL: ANY NEW PATTERNS OF PAIN OR NUMBNESS? NO . GASTROENTEROLOGY: ANY NEW CHANGE IN BOWEL CONTROL? NO . GENITOURINARY: ANY NEW CHANGE IN BLADDER CONTROL? NO . IS THERE A CHANCE YOU COULD BE ? NO . HEMATOLOGY/LYMPH: DO YOU TAKE ANY BLOOD THINNERS? (FOR EXAMPLE- COUMADIN, PLAVIX, AGGRENOX, PLATEL, PRADAXA, OR XARELTO) YES . WHEN WAS YOUR LAST DOSE? DATE: TIME: 05/10/17 1000AM . NEUROLOGY: HAVE YOU FALLEN IN THE PAST 6 MONTHS? YES BACK IN JUL / STROKE IN NOVEMBER . ANY NEW EXTREMITY NUMBNESS OR WEAKNESS? NO . CARDIOLOGY: DO YOU HAVE A PACEMAKER OR DEFIBRILLATOR? YES . RESPIRATORY: HAVE YOU BEEN SICK IN THE PAST WEEK? NO . FEVER NO . FLU LIKE SYMPTOMS? NO . COUGH NO . INTEGUMENTARY: DO YOU HAVE ANY RASHES OR OPEN SORES? NO . ALLERGIC/IMMUNO: ARE YOU ALLERGIC TO SHELLFISH OR IV DYE? YES . ANY NEW ALLERGIES? NO . PSYCHIATRIC: DO YOU HAVE THOUGHTS OF HURTING YOURSELF OR SOMEONE ELSE? NO . ARE YOU ABUSED, NEGLECTED, OR IN AN UNSAFE ENVIRONMENT? NO . ENDOCRINOLOGY: ARE YOU DIABETIC? NO . OTHER: DO YOU NEED ANY PRESCRIPTIONS? NO . IF YES, PLEASE LIST: ____ . ANY NEW PROBLEMS WITH YOUR MEDICATIONS? NO . WHEN DID YOU LAST EAT? 6PM . WHEN DID YOU LAST DRINK? 1000 TODAY . WHAT DID YOU LAST DRINK? BLACK COFFEE . NAME OF PERSON DRIVING YOU HOME? ARELY . DO YOU HAVE ANY OTHER QUESTIONS OR CONCERNS NO . VITAL SIGNS WT 195.6 LBS, HT 72 IN, BMI 26.53 INDEX, BP 132/76 MM HG, HR 72 /MIN, RR 18 /MIN, TEMP 98.1 F, OXYGEN SAT % 95%, NA INITIALS TL 1427, REVIEWED BY: NL. ASSESSMENTS MYALGIA - M79.1 (PRIMARY) PROCEDURES PN TRIGGER POINT INJECTION WITH STEROIDS PRE PROCEDURE DIAGNOSIS 1. MYALGIA 2. PAIN AT BILATERAL LOWER BACK AREA POST PROCEDURE DIAGNOSIS 1. MYALGIA 2. PAIN AT BILATERAL LOWER BACK AREA PROCEDURE TRIGGER POINT INJECTION AT BILATERAL LOWER BACK AREA SURGEON DR. ROBERT QUILES MANUAL ARTS TEACHER NONE ANESTHESIA LOCAL PRE PROCEDURE NOTE THE PATIENT HAS A HISTORY OF CHRONIC PAIN AT THE RIGHT AND LEFT LOWER BACK AREA. I EVALUATE THE PATIENT AND REVIEWED THE CHART. THERE IS EVIDENCE OF BANDS OF TISSUE WITH RESTRICTION OF MOVEMENT AND PRESENCE OF TRIGGER POINT AT THE AFFECTED AREA. I WENT OVER THE RISKS, ALTERNATIVES, AND BENEFITS ASSOCIATED WITH THIS PROCEDURE. THE PATIENT WOULD LIKE TO PROCEED AND GIVE CONSENT TO PERFORMED THE PROCEDURE. THE PATIENT DENIES UNEXPLAINABLE WEIGHT LOSS, FEVER, CHILLS, OR NEW CHANGES IN URINARY OR BOWEL CONTROL DESCRIPTION OF PROCEDURE THE PATIENT WAS BROUGHT TO THE PROCEDURE ROOM AND PLACED IN THE SITTING POSITION. THE AREA WAS CLEANED WITH ALCOHOL. THE PROCEDURE WAS DONE USING ASEPTIC STERILE TECHNIQUE. I CHECKED LATERALITY AND THE LEVEL WHERE THE PROCEDURE WAS GOING TO BE PERFORMED WITH THE PATIENT AND THE SUPPORTING STAFF AT THE MOMENT OF THE TIME OUT IN THE PROCEDURE ROOM. USING A 25-GAUGE NEEDLE, TRIGGER POINTS WERE INJECTED AT THE RIGHT AND LEFT LOWER BACK AREA WITH A TOTAL OF 40 ML OF BUPIVACAINE 0.25% AND KENALOG 40 MG. THERE WAS NO EVIDENCE OF BLOOD, PARESTHESIA OR CEREBROSPINAL FLUID DURING THE PROCEDURE. THE PATIENT WAS SENT TO THE RECOVERY ROOM. THE PATIENT WAS MOVING THE EXTREMITIES AND DOING WELL. THERE WAS NO COMPLICATION DURING THE PROCEDURE POST PROCEDURE NOTE THE PATIENT WILL BE SEEN IN A FOLLOW UP IN THE NEXT FEW WEEKS. INSTRUCTIONS WERE GIVEN, QUESTIONS WERE ANSWERED, AND THE PATIENT EXPRESSED UNDERSTANDING AND AGREES WITH THE PLAN. I, KELTON HAGEN, DOCUMENTED THE ABOVE INFORMATION ACTING A SCRIBE FOR DR. QUILES. I HAVE REVIEWED THE ABOVE DOCUMENT, WRITTEN BY KELTON NOWAK AND I VERIFY THAT IT IS ACCURATE PROCEDURE CODES 91838 INJ TRIGGER POINT 07/13 [facility] DISPOSITION & COMMUNICATION FOLLOW UP 3 WEEKS ELECTRONICALLY SIGNED BY ROBERT QUILES MD ON 05/11/2017 AT 02:53 PM EDT DISCLAIMER : THIS IS A VISIT SUMMARY EXTRACTED FROM THE [employer] CHART. IT IS NOT A COPY OF THE [employer] PROGRESS NOTE. LARON
== END ==
LOC: M PAIN 14:30
PROVIDERS: ATTEND Anesthesiology
DX: G89.29 Other chronic pain (principal); I10 Essential (primary) hypertension; M79.1 Myalgia; I25.2 Old myocardial infarction; I69.354 Hemiplegia and hemiparesis following cerebral infarction affecting left non-dominant side; Z79.82 Long term (current) use of aspirin; Z91.041 Radiographic dye allergy status
CPT/HCPCS: 20552; J3301